=== PATIENT | male | born 1950 | race Caucasian/White ===

== ENCOUNTER 2017-05-26 08:43 | Inpatient (IN) | payer MEDICARE, BC ==
[2017-05-26 09:29] LABS: ABS Basophils 0.1 10^3/ul (0-0.2); ABS Eosinophils 0 10^3/ul (0-0.6); ABS Lymphocytes 0.7 10^3/ul (1.0-4.8); ABS Monocytes 1.1 10^3/ul (0-0.8); ABS Neutrophils 11.2 10^3/ul (1.5-7.7); ABS Nucleated RBC 0 10^3/ul; Eosinophil % 0.4 % (0-6); Hematocrit 35 % (42-52); Hemoglobin 11.4 g/dl (14.0-18.0); Lymphocyte % 5.1 % (25-47); Mean Corpuscular HGB Conc 33 g/dl (31-36); Mean Corpuscular Hemoglobin 28 pg (27-31); Mean Corpuscular Volume 85 fL (80-94); Mean Platelet Volume 7 um3 (7.4-10.4); Nucleated Red Blood Cells % 0; Platelet Count 371 10^3/ul (150-450); Red Cell Distribution Width 18 % (10.5-15); White Blood Count 13.1 10^3/ul (3.5-10.8)
[2017-05-26 09:37] LABS: INR 2.3 (0.77-1.02)
--- NOTE | 2017-05-26 09:37 | RAD ---
HISTORY: Chest pain COMPARISONS: February 14, 2016 VIEWS: 1: frontal portable view of the chest at 9:20 AM FINDINGS: LINES AND TUBES: A right-sided pacemaker is noted. CARDIOMEDIASTINAL SILHOUETTE: The cardiac silhouette is enlarged. The cardiomediastinal silhouette is otherwise normal for portable technique. PLEURA: The costophrenic angles are sharp. No pleural abnormalities are noted. LUNG PARENCHYMA: There is a diffuse reticular pattern with indistinct pulmonary vessels. ABDOMEN: The upper abdomen is clear. There is no subphrenic gas. BONES AND SOFT TISSUES: The patient is status post median sternotomy. IMPRESSION: CARDIOMEGALY WITH PULMONARY INTERSTITIAL EDEMA.
[2017-05-26] MEDS ORDERED: Albuterol 2.5 MG/3 ML NEB.SOL* (0.083%) INH PRN (11:35)
[2017-05-26] MEDS ORDERED: Acetaminophen TAB* 325 MG PO PRN (11:35)
[2017-05-26] MEDS ORDERED: Docusate CAP* 100 MG PO PRN (11:38)
[2017-05-26] MEDS ORDERED: Baclofen TAB* 10 MG PO PRN (11:38)
[2017-05-26 11:58] LABS: Urine Appearance Clear; Urine Blood 1+ (Negative); Urine Color Amber; Urine Ketones Negative (Negative); Urine Protein 1+(30 mg/dL) (Negative); Urine Specific Gravity 1.016 (1.010-1.030); Urine Urobilinogen Positive (Negative)
[2017-05-26] MEDS ORDERED: NS 0.9% 1000 ML* 1,000 ML IV SCH (12:00)
[2017-05-26] MEDS ORDERED: cefTRIAXone(*) 1 GM in NS 0.9% 50 ML* 50 ML IVPB SCH (12:00)
[2017-05-26] MEDS ORDERED: Perflutren Lipid Microsphere* 3 ML VIAL ONE (15:34)
[2017-05-26] MEDS: Azithromycin IV(*) 500 MG in NS 0.9% 250 ML* 250 ML IVPB SCH (16:27)
--- NOTE | 2017-05-26 16:56 | ECHO ---
Patient: VLADIMIR TAYLOR [facility] Rec#: [id number] : 1950 Date: 05/26/2017 Age: 66y Height: 185.42 cm / 73.0 in Weight: 117.93 kg / 259.9 lbs Sex: M BSA: 2.41 Room#: 452 Admit Date#: 05/26/2017 Type: Inpatient Referring: Dorian Nuñez NP Reading: Eun Valente MD [employer] Maker: Kimberly Hardin RDCS CC: Surjit Berg MD Transthoracic Echocardiogram Indication: CHF, Chest pain BP: 114/64 HR: 58 Rhythm: Paced Findings History: CAD, [place] s/p PCI and CABG, ischemic cardiomyopathy, a-fib s/p ablation and AICD, HTN, HLD, smoker. Technical Comments: The study is technically difficult. The study is technically limited due to poor acoustic windows. The study is technically limited due to patient body habitus. Completed at 1630. Left Ventricle: The left ventricular chamber size is normal. Mild concentric left ventricular hypertrophy is observed. There is evidence of an ischemic cardiomyopathy. There is global hypokinesis of the left ventricle with minor regional variation. There is mild to moderately decreased left ventricular systolic function. The estimated ejection fraction is 30-35%. There is abnormal ventricular septal wall motion consistent with right ventricular pacemaker. The assessment of diastolic function is non-diagnostic. Left Atrium: The left atrium is mild to moderately dilated. Right Ventricle: The right ventricle is not well visualized. The right ventricle wall thickness is mildly increased. The right ventricular global systolic function is normal. A pacemaker wire is visualized in the right ventricle. Right Atrium: The right atrial cavity size is severely dilated. A pacemaker wire is visualized in the right atrium. Aortic Valve: The aortic valve is trileaflet. The aortic valve leaflets are mildly thickened. There is no evidence of aortic regurgitation. There is no evidence of aortic stenosis. Mitral Valve: The mitral valve leaflets are mildly thickened. There is mild to moderate mitral regurgitation. The mitral regurgitant jet is eccentric. There is no evidence of mitral stenosis. Tricuspid Valve: The tricuspid valve leaflets are mildly thickened. There is mild to moderate tricuspid regurgitation. The right ventricular systolic pressure is estimated at 57 mmHg. There is evidence of moderate pulmonary hypertension. There is no tricuspid stenosis. Pulmonic Valve: The pulmonic valve structure is not well visualized. There is mild to moderate pulmonic regurgitation. There is no pulmonic stenosis. Pericardium: There is no significant pericardial effusion. A pericardial fat pad is visualized. Aorta: There is mild dilatation of the ascending aorta. There is no dilatation of the aortic arch. There is moderate dilatation of the aortic root. Pulmonary Artery: The main pulmonary artery is not well visualized. Venous: The inferior vena cava is dilated. There is a greater than 50% respiratory change in the inferior vena cava dimension. Contrast: Definity was used to optimize study. 4 mL of diluted Definity was utilized. Intravenous contrast was used to enhance endocardial border definition. Summary: There are changes noted when compared to the previous study done on 11/25/2014, mixed valvular disease are more in severity now.LV EF still moderately reduced. Conclusions The study is technically difficult. The study is technically limited due to poor acoustic windows. Mild concentric left ventricular hypertrophy is observed. There is evidence of an ischemic cardiomyopathy. There is global hypokinesis of the left ventricle with minor regional variation. The estimated ejection fraction is 30-35%. The endocardium is not well visualiuzed. Septal and apical hypokinesis. There is abnormal ventricular septal wall motion consistent with right ventricular pacemaker. The assessment of diastolic function is non-diagnostic. The left atrium is mild to moderately dilated. A pacemaker wire is visualized in the right ventricle. A pacemaker wire is visualized in the right atrium. There is mild- moderate mitral regurgitation. There is mild-moderate tricuspid regurgitation. There is evidence of moderate pulmonary hypertension. Measurements Name Value Normal Range RVIDd (AP) 2D 3.9 cm (0.9 - 2.6) RVAW (2D) 0.9 cm (0.2 - 0.5) RAd ISD 4CH 7.2 cm (3.4 - 4.9) RA (A4C)W 5.1 cm (2.9 - 4.6) IVSd (2D) 1.1 cm (0.6 - 1) LVPWd (2D) 1.1 cm (0.6 - 1) LVIDd (2D) 5.2 cm (3.6 - 5.4) LVIDs (2D) 4.7 cm - LV FS (2D) 10 % (25 - 45) EF Teichholz (2D) 24 % - Aortic Annulus 2.2 cm (1.4 - 2.6) Ao root diameter (2D) 4.3 cm (2.1 - 3.5) Ascending Ao 3.8 cm (2.1 - 3.4) Aortic arch 3.2 cm (1.8 - 3.4) LA dimension (AP) 2D 5 cm (2.3 - 3.8) LAd ISD 4CH 6.4 cm (2.9 - 5.3) LA ISD 4CH W 6.3 cm (2.5 - 4.5) Name Value Normal Range LA ESV SP 4CH (A/L) 130 ml - LA ESV SP 2CH (A/L) 66 ml - LA ESV BP (A/L) 100 ml - LA ESV BP (A/L) index 41 ml/m2 - LA ESV SP 4CH (MOD) 126 ml - LA ESV SP 2CH (MOD) 64 ml - Name Value Normal Range MV E-wave Vmax 1.2 m/sec - MV deceleration time 140.5 msec - MV A-wave Vmax 0.34 m/sec - MV E:A ratio 3.53 ratio - LV septal e' Vmax 0.13 m/sec - LV lateral e' Vmax 0.11 m/sec - LV E:e' septal ratio 9.23 ratio - LV E:e' lateral ratio 10.9 ratio - Name Value Normal Range AV Vmax 1.2 m/sec - AV VTI 23.21 cm - AV peak gradient 5.45 mmHg - AV mean gradient 2.52 mmHg - LVOT Vmax 0.92 m/sec - LVOT VTI 17.68 cm - LVOT peak gradient 3.42 mmHg - LVOT mean gradient 1.39 mmHg - HI Vmax 0.69 m/sec - HI peak gradient 1.93 mmHg - Name Value Normal Range MR Vmax 4.61 m/sec - MR VTI 139 cm - MR flow (PISA) 64.92 ml/sec - MR ERO 0.14 cm2 - MR PISA radius 0.5 cm - MR alias Vmax 42 cm/sec - Name Value Normal Range TR Vmax 3.5 m/sec - TR peak gradient 49 mmHg - RAP 8 mmHg - RVSP 57 mmHg - IVC diameter 2.11 cm - Name Value Normal Range PV Vmax 1.09 m/sec - PV peak gradient 4.75 mmHg - AL end-diastolic Vmax 1.29 m/sec -
--- NOTE | 2017-05-26 17:03 | ED ---
Cuong Eddy Thomas, scribed for Uday Glasgow MD on 05/26/17 at 0941 . HPI Chest Pain - HPI Summary HPI Summary: The patient is a 66 year old male complaining of episodes of chest pain for the last three days. The patient had an episode of chest pain last night, prompting a visit to the emergency department. He does not have chest pain in the ED. The patient treated the pain with NTG yesterday. The patient additionally complains of chills. The patient denies headache, nausea, and dizziness. His last stress test was in 2015. He has a pacemaker defibrillator. - History of Current Complaint Chief Complaint: EDChestPainROMI Time Seen by Provider: 05/26/17 08:59 Hx Obtained From: Patient Onset/Duration: Started Days Ago - 3, Resolved Timing: Intermittent Initial Severity: Moderate Pain Intensity: 0 Pain Scale Used: 0-10 Numeric Character: Other: - patient describes as similar to prior angina Aggravating Factor(s): Nothing Alleviating Factor(s): Spontaneous Resolution Associated Signs and Symptoms: Positive: Chest Pain, Chills. Negative: Other: - ZAMORA, nausea, dizziness - Additional Pertinent History Primary Care Physician: [id number] - Allergy/Home Medications Allergies/Adverse Reactions: Allergies Allergy/AdvReac Type Severity Reaction Status Date / Time No Known Allergies Allergy Verified 11/09/15 01:38 Home Medications: Home Medications Amiodarone TAB* [Cordarone TAB*] 300 mg PO DAILY 05/26/17 [History Confirmed ] Baclofen TAB* [Lioresal TAB*] 10 mg PO TID PRN 05/26/17 [History Confirmed 05/26] Docusate CAP* [Colace Cap*] 100 mg PO DAILY PRN 05/26/17 [History Confirmed ] Esomeprazole(NF) [NEXium(NF)] 20 mg PO DAILY 05/26/17 [History Confirmed ] Ferrous Gluconate TAB* [Fergon TAB*] 27 mg PO DAILY PRN 05/26/17 [History Confirmed 05/26/17] Folic Acid TAB* [Folvite TAB*] 1 mg PO DAILY 05/26/17 [History Confirmed ] Metoprolol Succinate XL TAB* [Toprol XL TAB*] 37.5 mg PO DAILY 05/26/17 [ History Confirmed 05/26/17] Pravastatin (NF) [Pravachol (NF)] 80 mg PO BEDTIME 05/26/17 [History Confirmed 05/26/17] PMH/Surg Hx/FS Hx/Imm Hx Endocrine/Hematology History: Reports: Hx Anticoagulant Therapy - PLAVIX, ASA, xeralto, Hx Thyroid Disease Denies: Hx Blood Disorders, Hx Blood Transfusions, Hx Bone Marrow Disease, Hx Diabetes, Hx Systemic Lupus Erythematosus, Hx Sickle Cell Disease, Hx Anemia , Hx Unexplained Bleeding, Other Endocrine/Hematological Disorders Cardiovascular History: Reports: Hx Aneurysm - popliteal s/p 1992, Hx Angina, Hx Angioplasty, Hx Auto Implanted Cardiovert Defib, Hx Cardiac Arrest, Hx Congestive Heart Failure, Hx Coronary Artery Disease, Hx Hypercholesterolemia, Hx Hypertension, Hx Myocardial Infarction, Hx Pacemaker/ICD - ICD 2007, CURRENTLY ON HIS 4TH PACEMAKER, Hx Rheumatic Fever - as a child, Other Cardiovascular Problems/Disorders - CAD Denies: Hx Cardiomegaly, Hx Congenital Heart Disease, Hx Deep Vein Thrombosis , Hx Hypotension, Hx Peripheral Vascular Disease, Hx Syncope, Hx Valvular Heart Disease Respiratory History: Denies: Hx Asthma, Hx Chronic Obstructive Pulmonary Disease (COPD) Sensory History: Reports: Hx Contacts or Glasses Denies: Hx Cataracts, Hx Eye Injury, Hx Eye Prosthesis, Hx Glaucoma, Hx Macular Degeneration, Hx Vision Problem, Hx Deafness, Hx Hearing Aid, Hx Hearing Problem, Other Sensory Impairments Opthamlomology History: Reports: Hx Contacts or Glasses Denies: Hx Cataracts, Hx Eye Injury, Hx Eye Prosthesis, Hx Glaucoma, Hx Macular Degeneration, Hx Vision Problem, Other Sensory Impairments - Surgical History Surgery Procedure, Year, and Place: s/p hernia repair x2, left knee REPAIR. THYROIDECTOMY. ICD [address] [facility]. CABG X 4 1991 W/STENTS, Hx Anesthesia Reactions: No - Immunization History Date of Tetanus Vaccine: unk Date of Influenza Vaccine: 01/08/15 Infectious Disease History: No Infectious Disease History: Denies: Traveled Outside the [place] in Last 30 Days - Family History Known Family History: Positive: Cardiac Disease, Other - Laryngeal CA Family History: Father of [place] at 52. Mother - laryngeal CA. - Social History Alcohol Use: None Alcohol Amount: WEEKENDS Hx Substance Use: No Substance Use Type: Reports: None Hx Tobacco Use: Yes Smoking Status (MU): Heavy Every Day Tobacco Smoker Type: Pipe Amount Used/How Often: about 3/16 ounce of pipe tabacco a day,tabacco pouch last about 5days Length of Time of Smoking/Using Tobacco: since 1966 Have You Smoked in the Last Year: Yes Review of Systems Positive: Chills. Negative: Fever Positive: Chest Pain Negative: Nausea Neurological: Negative - dizziness Negative: Headache All Other Systems Reviewed And Are Negative: Yes Physical Exam - Summary Physical Exam Summary: VITAL SIGNS: Reviewed. GENERAL: Patient is a well-developed and nourished male is lying comfortable in the stretcher. Patient is not in any acute respiratory distress. HEAD AND FACE: No signs of trauma. No ecchymosis, hematomas or skull depressions. No sinus tenderness. EYES: PERRLA, EOMI x 2, No injected conjunctiva, no nystagmus. EARS: Hearing grossly intact. Ear canals and tympanic membranes are within normal limits. MOUTH: Oropharynx within normal limits. Dry oral mucosa. NECK: Supple, trachea is midline, no adenopathy, no JVD, no carotid bruit, no c- spine tenderness, neck with full ROM. CHEST: Symmetric, no tenderness at palpation LUNGS: Clear to auscultation bilaterally. No wheezing or crackles. CVS: Regular rate and rhythm, S1 and S2 present, no murmurs or gallops appreciated. ABDOMEN: Soft, non-tender. No signs of distention. No rebound no guarding, and no masses palpated. Bowel sounds are normal. EXTREMITIES: FROM in all major joints, no edema, no cyanosis or clubbing. NEURO: Alert and oriented x 3. No acute neurological deficits. Speech is normal and follows commands. SKIN: Dry and warm Triage Information Reviewed: Yes Vital Signs On Initial Exam: Initial Vitals Temp Pulse Resp BP Pulse Ox 97.7 F 78 20 111/55 90 05/26/17 08:45 05/26/17 08:45 05/26/17 08:45 05/26/17 08:45 05/26/17 08:45 Vital Signs Reviewed: Yes Diagnostics - Vital Signs Vital Signs Temp Pulse Resp BP Pulse Ox 05/26/17 08:45 97.7 F 78 20 111/55 90 - Laboratory Lab Results: Lab Results 05/26/17 05/26/17 Range/Units 09:19 09:19 WBC 13.1 H (3.5-10.8) 10^3/ul RBC 4.10 (4.0-5.4) 10^6/ul Hgb 11.4 L (14.0-18.0) g/dl Hct 35 L (42-52) % MCV 85 (80-94) fL MCH 28 (27-31) pg MCHC 33 (31-36) g/dl RDW 18 H (10.5-15) % Plt Count 371 (150-450) 10^3/ul MPV 7 L (7.4-10.4) um3 Neut % (Auto) 85.9 H (38-83) % Lymph % (Auto) 5.1 L (25-47) % [place] % (Auto) 8.2 (1-9) % Eos % (Auto) 0.4 (0-6) % Baso % (Auto) 0.4 (0-2) % Absolute Neuts (auto) 11.2 H (1.5-7.7) 10^3/ul Absolute Lymphs (auto) 0.7 L (1.0-4.8) 10^3/ul Absolute Monos (auto) 1.1 H (0-0.8) 10^3/ul Absolute Eos (auto) 0 (0-0.6) 10^3/ul Absolute Basos (auto) 0.1 (0-0.2) 10^3/ul Absolute Nucleated RBC 0 10^3/ul Nucleated RBC % 0 INR (Anticoag Therapy) 2.30 H (0.77-1.02) APTT 34.9 (26.0-36.3) seconds Result Diagrams: 05/26/17 09:19 05/26/17 09:19 Lab Statement: Any lab studies that have been ordered have been reviewed, and results considered in the medical decision making process. - Radiology CXR Xray Interpretation: No Acute Changes - CARDIOMEGALY WITH INTERSTITIAL PULMONARY EDEMA. Dr. Glasgow has reviewed this report. Radiology Interpretation Completed By: Radiologist - EKG 08:53 Cardiac Rate: NL EKG Rhythm: Sinus Rhythm EKG Interpretation: No ST elevations. Chest Pain Course/Dx - Course Assessment/Plan: The patient is a 66 year old male complaining of episodes of chest pain for the last three days. The patient had an episode of chest pain last night, prompting a visit to the emergency department. He does not have chest pain in the ED. The patient treated the pain with NTG yesterday. The patient additionally complains of chills. The patient denies headache, nausea, and dizziness. His last stress test was in 2015. He has a pacemaker defibrillator. Test results show WBC 13.1, a slight anemia, troponin 0.05. Urinalysis is negative for UTI. Influenza A and B were negative. Since the patient has multiple comorbidities and the patient has been having multiple episodes of angina, I discussed the case with Dr. Brown, who accepts the patient for admission. The patient is hemodynamically stable and alert and oriented x 3. - Diagnoses Provider Diagnoses: Chest pain r/o acute coronary syndrome - Provider Notifications Discussed Care Of Patient With: Ewa Brown Time Discussed With Above Provider: 10:33 Instructed by Provider To: Admit As Inpatient Discharge - Discharge Plan Condition: Stable Disposition: ADMITTED TO [facility] The documentation as recorded by the Cuong tavera Thomas accurately reflects the service I personally performed and the decisions made by , Uday Glasgow MD.
[2017-05-26] MEDS: Famotidine TAB* 20 MG PO SCH (20:30)
[2017-05-26] MEDS: Metoprolol Tartrate TAB* 25 MG PO SCH (20:31)
[2017-05-26] MEDS: CMC:Pravastatin (NF) 20 MG TAB PO SCH (20:31)
--- NOTE | 2017-05-26 21:01 | HP ---
CC: Dr. Berg; Dr. Gamboa * HISTORY AND PHYSICAL: DATE OF ADMISSION: 05/26/17 PRIMARY CARE PROVIDER: Dr. Berg. ATTENDING PHYSICIAN WHILE IN THE HOSPITAL: Speedy Fleming MD * (report dictated by Clara Nuñez NP) CHIEF COMPLAINT: 1. Cough. 2. Weakness. 3. Chest pain. HISTORY OF PRESENT ILLNESS: Mr. Armstrong is a 66-year-old male patient. He has a history of KS, CAD, hypertension, hyperlipidemia, history of CHF, and history of hypothyroidism. He comes into the ED today stating initially last Monday he started having pain mostly on his left side, left flank radiating into the center of his back. That was getting progressively worse throughout the week. He went to his primary on Monday. He felt that it was maybe related to chronic back pain. He was given medications, which the pain went away. However , since then, on Monday, he started feeling having chills and weak. He had been coughing. He states he has no, in his words, get up and go. He just feels really tired. He has had no appetite. He has not been feeling well. He has been having dry cough. He noticed on Monday, he he had one episode of chest discomfort when he was at the [employer] getting a cup of coffee. He took a nitro, it went away. He had an episode yesterday evening where he had chest discomfort on his right side described as a squeezing tightness which is typical of his angina. He waited and it went away on its own. He had no associated shortness of breath this morning. At 3 in the morning, he woke up again, chest discomfort, right side pressure, squeezing. He felt really flushed and felt hot, got sweaty. No shortness of breath associated with this, but in addition to this he has also been feeling very weak, having chills, unable to get warm. He has been coughing. He states now he is just a kind of aching all over and he just does not feel good. There has been no nausea, vomiting. No more abdominal pain or back pain. No chest pain with exertion. He states all these episodes has happened at rest. He was concerned given his history and he decided to come into the hospital today to be evaluated. Denies having any symptoms right now with the exception he just feels weak and tired. The patient was evaluated in the ED. There was concern that this could represent acute coronary syndrome and we were asked to evaluate for admission. PAST MEDICAL HISTORY: Significant for; 1. KS. 2. CAD. 3. Hypertension. 4. Hypothyroidism. 5. Hyperlipidemia. 6. CHF, EF of 30%. PAST SURGICAL HISTORY: 1. He has had CABG. 2. He has had bilateral popliteal aneurysm repair. 3. He has had a pacemaker ICD placement and it has been replaced 4 times due to fractured wire and infection. 4. He has a history of thyroidectomy. 5. Cardiac catheterization with stents. 6. Angioplasty. 7. He has a history of recently an ablation in March at [facility] for Afib. 8. He has a history of hernia repair. HOME MEDICATIONS: Include; 1. Ferrous gluconate 27 mg p.o. daily as needed. 2. Colace 100 mg daily as needed. 3. Baclofen 10 mg t.i.d. as needed. 4. Norvasc 5 mg p.o. daily. 5. Pravachol 80 mg p.o. daily. 6. Nexium 20 mg daily. 7. Xarelto 20 mg daily. 8. Lasix 20 mg daily. 9. Plavix 75 mg daily. 10. Aspirin 81 mg daily. 11. Losartan 160 mg p.o. daily. 12. Toprol XL 37.5 mg daily. 13. Amiodarone 300 mg p.o. daily. 14. Zantac 1 tablet p.o. daily. 15. Synthroid 200 mcg daily. 16. Folic acid 1 mg p.o. daily. ALLERGIES TO MEDICATIONS: Include no known drug allergies. FAMILY HISTORY: His mother had a history of laryngeal cancer. Father had a history of KS. SOCIAL HISTORY: He is still smoking a pipe occasionally. He is a former cigarette smoker. He does not drink alcohol. Surrogate decision maker is his . REVIEW OF SYSTEMS: There is no documented fever, but subjectively he is admitting to having fevers and chills. He denies having any abdominal pain or any nausea or vomiting. Denies having any chest pain currently, there was some per my HPI. There is no orthopnea. No nocturnal dyspnea. Denies having any leg swelling or weight gain. He denies any abdominal pain currently. He did have left flank pain, which is now resolved. He denies any dysuria. No frequency. There has been no seizure. No loss of consciousness. No pruritus and no skin ulcerations. Review of 14 systems completed, all others negative. PHYSICAL EXAMINATION GENERAL: At this time, Mr. Armstrong is a 66-year-old male patient. He is chronically ill appearing. He is sitting in ED stretcher. He does not appear to be in any acute distress. VITAL SIGNS: Blood pressure 114/64, pulse 60, respirations 22, O2 sat 94%, and temperature 96.7. HEENT: Head is atraumatic. Eyes: Sclerae are anicteric. Throat: Oral mucosa appears to be dry. No oropharyngeal erythema. NECK: Supple. LUNGS: He had diminished breath sounds bilaterally. There was no wheezing heard. HEART: Sounds S1 and S2. Regular rate and rhythm. No murmurs, rubs, or gallops. ABDOMEN: Soft, flat, and nontender. Bowel sounds present. EXTREMITIES: Pulses were 2+ throughout. He had no CVA tenderness. He has no peripheral edema. He has 5/5 strength. NEUROLOGIC: He is awake, alert, oriented x3. Tongue midline. Wellness Assistant were equal. He had no gross focal deficits. SKIN: Intact. LABORATORY DATA/DIAGNOSTIC STUDIES: WBC of 13.1, RBC of 4.10, hemoglobin 11.4 , hematocrit 35, and platelet count of 371,000. His INR is 2.3, PTT of 34.9. His sodium is 133, potassium 3.6, chloride of 103, bicarbonate 21. His BUN was 23, creatinine 1.17. Glucose 130, calcium 9.4, magnesium 1.9, total bilirubin 1.9, AST 27, ALT 15, alkaline phosphatase 170. CK 35, CK-MB 1.4. Troponin 0.05. Albumin was 3.6. BNP was 376. He did have a chest x-ray obtained today. Impression: Cardiomegaly with pulmonary interstitial edema. He had EKG obtained today and shows sinus rhythm, rate of 77. No ST elevations. No significant changes from his previous EKG. No T-wave inversions were noted. Old medical records were reviewed. Last known EF was about 30%. ASSESSMENT AND PLAN: Mr. Armstrong is a 66-year-old male patient coming into the ED today with multiple complaints with just concern for the chest pain that he was having intermittently in the last few days. In addition to this, he has also been complaining of weakness, arthralgias and myalgias, cough. We were asked to evaluate for admission. He will be admitted under observation status for: 1. Chest pain. At this point, I suspect the chest pain is probably some demand ischemia from him having an underlying a viral illness. He certainly does have risk factors for acute coronary artery syndrome. He is on Plavix. He is on an aspirin. He is on statin and beta-rizwana therapy already. I will continue. He is not having any chest pain now. I am going to get an echo, cycle his troponins. If the troponins go up or there is significant change on the echo, formal cardiology consult will be evaluated. 2. Leukocytosis. Again, I am concerned that there is an underlying infection going on here, possibly pneumonia, possibly influenza. He has been complaining of a dry cough. He has been aching all over. He has been having chills intermittently. He is feeling weak. I am going to put him empirically on antibiotics. We will get blood culture, sputum culture, Legionella strep antigen. In addition to this, we will also get rapid flu swab on the patient and I am checking procalcitonin and we will follow him closely. 3. Coronary artery disease. Again, trend the troponins. He is on aspirin, Plavix, statin, beta-rizwana. 4. Atrial fibrillation, recent ablation. Continue his amiodarone and beta- rizwana, which I have switched to immediate release with hold parameters in the setting of acute illness and we will continue his Xarelto. 5. History of congestive heart failure. He does have some fluids on x-ray, but clinically looking at the patient, he looks dry, his mucous membranes are dry, his urine appears to be concentrated. I am going to give him a little bit of fluids. We will diurese him as needed because I am concerned that he has an underlying infection. 6. Hypertension. We are just going to continue the beta-rizwana. We will hold his other blood pressure meds and restart when able. 7. Hypothyroidism. Continue his Synthroid. 8. Hyperlipidemia. Statin therapy will be continued. 9. Back pain. Again, I am checking his urine. If there is any blood in the urine, I will get a CT of the abdomen and pelvis because it did sound like it was in the flank. He is not having any pain now and he is not having any CVA tenderness, so we will follow this. 10. DVT prophylaxis. He is on Xarelto. 11. Code status. He wished to be a DNR. 12. Fluids, electrolytes, and nutrition. He can have a heart healthy diet. TIME SPENT: Time spent on admission was 60 minutes, greater than half the time was spent [id number] with the patient obtaining my history of physical; the other half time was spent going over the plan of care with the patient and implementing plan of care. I did discuss the plan of care with my attending, Dr. Fleming, he is in agreement. CLARA NUÑEZ NP [id number]/CPS #: [id number] MTDD
[2017-05-27] MEDS ORDERED: Nitroglycerin TAB 0.4 MG* 0.4 MG TAB SL PRN (06:12)
[2017-05-27 07:11] LABS: EGFR Non-African American 66.6 (>60)
[2017-05-27 07:12] LABS: INR 1.4 (0.77-1.02)
[2017-05-27] MEDS ORDERED: Famotidine TAB* 20 MG PO SCH (09:00)
[2017-05-27] MEDS ORDERED: Al Hydrox/Mg Hydrox/Simet LIQ* 30 ML UDC PO PRN (09:36)
[2017-05-27] MEDS ORDERED: Calcium Carbonate CHEW TAB* 500 MG (TUMS) PO PRN (09:36)
[2017-05-27] MEDS: Levothyroxine TAB* 100 MCG TAB PO SCH (09:44)
[2017-05-27] MEDS: Metoprolol Tartrate TAB* 25 MG PO SCH ×2 (09:44→21:21)
[2017-05-27] MEDS: Rivaroxaban TAB(*) 20 MG TAB PO SCH (09:44)
[2017-05-27] MEDS: CMC:Pantoprazole TAB (NF) 40 MG TAB PO SCH (09:44)
[2017-05-27] MEDS: Folic Acid TAB* 1 MG PO SCH (09:45)
[2017-05-27] MEDS: Famotidine TAB* 20 MG PO SCH (09:45)
[2017-05-27] MEDS: Clopidogrel TAB* 75 MG PO SCH (09:45)
[2017-05-27] MEDS: Aspirin EC Low Dose* 81 MG TAB.EC PO SCH (09:45)
[2017-05-27] MEDS: Amiodarone TAB* 200 MG PO SCH (09:45)
[2017-05-27] MEDS: Azithromycin IV(*) 500 MG in NS 0.9% 250 ML* 250 ML IVPB SCH (12:40)
[2017-05-27] MEDS: cefTRIAXone(*) 1 GM in D5W 50 ML BAG* 50 ML IVPB SCH (14:20)
--- NOTE | 2017-05-27 17:24 | PN ---
Subjective Date of Service: 05/27/17 Interval History: Pt is feeling lousy. He has a frequent cough but is not able to bring up much sputum. He still feels SOB with minimal exertion. The patient's daughter noticed today that he appears jaundiced. Objective Active Medications: Acetaminophen (Tylenol Tab*) 650 mg PO Q4H PRN PRN Reason: FEVER/PAIN Al Hydrox/Mg Hydrox/Simethicone (Maalox Plus*) 30 ml PO Q4H PRN PRN Reason: INDIGESTION Albuterol (Ventolin 2.5 Mg/3 Ml Neb.Noreen*) 2.5 mg INH Q2H PRN PRN Reason: SOB/WHEEZING Amiodarone HCl (Cordarone Tab*) 300 mg PO DAILY [facility] Last Admin: 05/27/17 09:45 Dose: 300 mg Aspirin (Aspirin Ec Low Dose*) 81 mg PO DAILY [facility] Last Admin: 05/27/17 09:45 Dose: 81 mg Baclofen (Lioresal Tab*) 10 mg PO TID PRN PRN Reason: PAIN - BACK Calcium Carbonate (Tums*) 500 mg PO Q4H PRN PRN Reason: INDIGESTION Clopidogrel Bisulfate (Plavix Tab*) 75 mg PO DAILY [facility] Last Admin: 05/27/17 09:45 Dose: 75 mg Docusate Sodium (Colace Cap*) 100 mg PO DAILY PRN PRN Reason: CONSTIPATION Famotidine (Pepcid Tab*) 20 mg PO DAILY [facility] PRN Reason: Protocol Last Admin: 05/27/17 09:45 Dose: 20 mg Folic Acid (Folvite Tab*) 1 mg PO DAILY [facility] Last Admin: 05/27/17 09:45 Dose: 1 mg Azithromycin 500 mg/ Sodium (Chloride) 250 mls @ 250 mls/hr IVPB Q24H [facility] Last Admin: 05/27/17 12:40 Dose: 250 mls/hr Ceftriaxone Sodium 1 gm/ (Dextrose) 50 mls @ 200 mls/hr IVPB Q24H [facility] Last Admin: 05/27/17 14:20 Dose: 200 mls/hr Levothyroxine Sodium (Synthroid Tab*) 200 mcg PO DAILY [facility] Last Admin: 05/27/17 09:44 Dose: 200 mcg Metoprolol Tartrate (Lopressor Tab*) 25 mg PO BID [facility] Last Admin: 05/27/17 09:44 Dose: 25 mg Nitroglycerin (Nitroglycerin Tab 0.4 Mg*) 0.4 mg SL Q5M PRN PRN Reason: ANGINA Pantoprazole Sodium (Protonix Tab (Nf)) 40 mg PO DAILY [facility] PRN Reason: Protocol Last Admin: 05/27/17 09:44 Dose: 40 mg Pravastatin Sodium (Pravachol (Nf)) 80 mg PO BEDTIME [facility] PRN Reason: Protocol Last Admin: 05/26/17 20:31 Dose: 80 mg Rivaroxaban (Xarelto(*)) 20 mg PO DAILY [facility] Last Admin: 05/27/17 09:44 Dose: 20 mg Oxygen Devices in Use Now: Nasal Cannula Appearance: Middle aged male sitting in a chair, appears jaundiced, NAD Eyes: No Scleral Icterus Ears/Nose/Mouth/Throat: Mucous Membranes Moist Respiratory: Symmetrical Chest Expansion and Respiratory Effort, Clear to Auscultation - few RLL crackles Cardiovascular: NL Sounds; No Murmurs; No JVD, - - distant heart sounds, regular , trace LE edema B/L Abdominal: NL Sounds; No Tenderness; No Distention Extremities: No Clubbing, Cyanosis Skin: No Rash or Ulcers, No Nodules or Sclerosis, - - jaundiced appearing face/ upper chest Neurological: Alert and Oriented x 3 Result Diagrams: 05/26/17 09:19 05/27/17 06:37 Additional Lab and Data: Lab Results 05/26/17 05/26/17 Range/Units 09:19 09:19 WBC 13.1 H (3.5-10.8) 10^3/ul RBC 4.10 (4.0-5.4) 10^6/ul Hgb 11.4 L (14.0-18.0) g/dl Hct 35 L (42-52) % MCV 85 (80-94) fL MCH 28 (27-31) pg MCHC 33 (31-36) g/dl RDW 18 H (10.5-15) % Plt Count 371 (150-450) 10^3/ul MPV 7 L (7.4-10.4) um3 Neut % (Auto) 85.9 H (38-83) % Lymph % (Auto) 5.1 L (25-47) % Bonner % (Auto) 8.2 (1-9) % Eos % (Auto) 0.4 (0-6) % Baso % (Auto) 0.4 (0-2) % Absolute Neuts (auto) 11.2 H (1.5-7.7) 10^3/ul Absolute Lymphs (auto) 0.7 L (1.0-4.8) 10^3/ul Absolute Monos (auto) 1.1 H (0-0.8) 10^3/ul Absolute Eos (auto) 0 (0-0.6) 10^3/ul Absolute Basos (auto) 0.1 (0-0.2) 10^3/ul Absolute Nucleated RBC 0 10^3/ul Nucleated RBC % 0 INR (Anticoag Therapy) 2.30 H (0.77-1.02) APTT 34.9 (26.0-36.3) seconds Microbiology and Other Data: Microbiology 05/26/17 16:44 Aerobic Blood Culture - Preliminary Blood Venous No Growth Day 1 Anaerobic Blood Culture - Preliminary No Growth Day 1 05/26/17 13:07 Aerobic Blood Culture - Preliminary Blood Venous Anaerobic Blood Culture - Preliminary No Growth Day 1 05/26/17 16:24 Legionella Urinary Antigen - Final Urine Negative Legionella Streptococcus pneumoniae Ag Screen - Final Negative S. 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 - Patient Problems (1) Bacteremia Current Visit: Yes Status: Acute Code(s): R78.81 - BACTEREMIA SNOMED Code( s): 1459284 Comment: The patient has 1 of 2 bottles positive for gram positive cocci resembling strep. Will continue ceftriaxone and azithromycin for now. Repeat blood cultures tomorrow. I am concerned about the bacteremia given his pacer and past h/o device associated endocarditis. Will get ID consult. (2) Jaundice Current Visit: Yes Status: Acute Code(s): R17 - UNSPECIFIED JAUNDICE SNOMED Code(s): 16201535 Comment: The patient's bilirubin yesterday was elevated at 1.9, his alk phos was also elevated. This is new. Will repeat labs now. Check liver ultrasound. Check indirect/direct bilirubin. (3) Chest pain Current Visit: Yes Status: Acute Code(s): R07.9 - CHEST PAIN, UNSPECIFIED SNOMED Code(s): 89128192 Comment: The patient has been having chest discomfort for the last couple weeks. Troponin is mildly elevated but did not climb. ? demand ischemia secondary to infection. No further cardiac testing at this time. (4) CAD (coronary artery disease) Current Visit: Yes Status: Acute Code(s): I25.10 - ATHSCL HEART DISEASE OF [place] CORONARY ARTERY W/O ANG PCTRS SNOMED Code(s): 45731382 Comment: Troponin is stable. Continue ASA, plavix, pravachol. Hold off on further cardiac testing for now. (5) Atrial fibrillation Current Visit: Yes Status: Chronic Code(s): I48.91 - UNSPECIFIED ATRIAL FIBRILLATION SNOMED Code(s): 99929777 Comment: The patient is currently in SR/paced rhythm. Continue metoprolol and amiodarone. Continue rivaroxaban. (6) CHF (congestive heart failure) Current Visit: Yes Status: Chronic Code(s): I50.9 - HEART FAILURE, UNSPECIFIED SNOMED Code(s): 21144340 Comment: Pt with chronic systolic CHF. He appears euvolemic. Will continue to hold lasix for now but will likely need to add this back soon. (7) HTN (hypertension) Current Visit: Yes Status: Acute Code(s): I10 - ESSENTIAL (PRIMARY) HYPERTENSION SNOMED Code(s): 95291367 Comment: BP is under excellent control. Continue metoprolol. (8) Hypothyroidism Current Visit: Yes Status: Acute Code(s): E03.9 - HYPOTHYROIDISM, UNSPECIFIED SNOMED Code(s): 10814338 Comment: Continue current dose of synthroid. TSH is in normal range. (9) DVT prophylaxis Current Visit: Yes Status: Acute Code(s): QYI6538 - SNOMED Code(s): 967022951 Comment: Kevin (10) DNR (do not resuscitate) Current Visit: Yes Status: Acute
[2017-05-27] MEDS ORDERED: LORazepam TAB(*) 0.5 MG PO PRN (17:30)
--- NOTE | 2017-05-27 17:58 | RAD ---
HISTORY: Cardiac issue, evaluate for infiltrates. No other history is provided. COMPARISONS: December 02, 2013, chest x-ray dated January 23, 2018 TECHNIQUE: Multiple contiguous axial CT scans of the chest were obtained without intravenous contrast. Coronal and sagittal multiplanar reformations are also submitted for review. FINDINGS: The study is limited by the lack of intravenous contrast. This limits evaluation of the solid organs and vasculature. NECK AND THYROID: The lower neck and thyroid are unremarkable. CHEST WALL: There is no lower cervical, axillary, or supraclavicular lymphadenopathy by size criteria. A right-sided pacemaker is noted. HEART AND PERICARDIUM: Coronary and valvular cardiac calcifications are noted. There is right atrial enlargement. There is mild left atrial and left ventricular enlargement. AORTA AND PULMONARY VASCULATURE: There is calcification of the thoracic aorta. The pulmonary vasculature is unremarkable. MEDIASTINUM: There is no mediastinal lymphadenopathy by size criteria. MORIS: There is no hilar lymphadenopathy by size criteria. AIRWAY AND ESOPHAGUS: The airway is unremarkable, without endobronchial filling defect. The esophagus is grossly normal. LUNG PARENCHYMA: There is geographic ground glass opacification of the lungs diffusely bilaterally. There is a noncalcified nodule of the right lower lobe on axial image 44. This is stable from the 2014 examination. The stability is consistent with a benign nodule. PLEURA: No pleural abnormalities are noted. UPPER ABDOMEN: The upper abdomen is unremarkable. BONES AND SOFT TISSUES: The patient is status post median sternotomy. Degenerative changes are noted of the spine. OTHER: None. IMPRESSION: GEOGRAPHIC MULTIFOCAL AIRSPACE DISEASE THROUGHOUT BOTH LUNGS. THE DIFFERENTIAL INCLUDES INFECTION OR PULMONARY ALVEOLAR EDEMA.
--- NOTE | 2017-05-27 18:37 | RAD ---
HISTORY: Elevated bilirubin COMPARISONS: CT of the chest dated May 27, 2017 TECHNIQUE: Multiple transverse and longitudinal ultrasound images were obtained of the right upper quadrant of the abdomen using grayscale and color Doppler imaging. FINDINGS: LIVER: The liver is normal in shape, size, contour, and echogenicity. There are no focal parenchymal masses. There is normal hepatopedal flow of the portal vein on Doppler imaging. BILIARY TREE: There is no intrahepatic or extrahepatic biliary dilatation. The common duct measures 0.5 cm. GALLBLADDER: The gallbladder is incompletely distended, but is grossly normal. There is no pericholecystic fluid or sonographic Hayes sign. PANCREAS: The head of the pancreas is unremarkable. The tail of the pancreas is not well visualized secondary to overlying bowel gas. RIGHT KIDNEY: The right kidney is normal in shape, size, contour, and echogenicity. There is no hydronephrosis or nephrolithiasis. The right kidney measures 13.7 x 6.5 x 6.8 cm. AORTA AND IVC: The aorta and IVC are unremarkable. FLUID: There are no pleural effusions. There is no free fluid within the hepatorenal recess. OTHER FINDINGS: None. IMPRESSION: NO ACUTE SONOGRAPHIC PATHOLOGY OF THE VISUALIZED PORTION OF THE ABDOMEN.
[2017-05-27 18:47] LABS: EGFR Non-African American 56.9 (>60)
[2017-05-27] MEDS: CMC:Pravastatin (NF) 20 MG TAB PO SCH (21:21)
[2017-05-28 05:46] LABS: Hematocrit 32 % (42-52); Hemoglobin 10.6 g/dl (14.0-18.0); Mean Corpuscular HGB Conc 33 g/dl (31-36); Mean Corpuscular Hemoglobin 28 pg (27-31); Mean Corpuscular Volume 84 fL (80-94); Mean Platelet Volume 7 um3 (7.4-10.4); Platelet Count 401 10^3/ul (150-450); Red Blood Count 3.77 10^6/ul (4.0-5.4); Red Cell Distribution Width 18 % (10.5-15); White Blood Count 10.6 10^3/ul (3.5-10.8)
[2017-05-28] MEDS: Famotidine TAB* 20 MG PO SCH (09:44)
[2017-05-28] MEDS: Metoprolol Tartrate TAB* 25 MG PO SCH ×2 (09:44→21:07)
[2017-05-28] MEDS: Clopidogrel TAB* 75 MG PO SCH (09:44)
[2017-05-28] MEDS: Amiodarone TAB* 200 MG PO SCH (09:45)
[2017-05-28] MEDS: CMC:Pantoprazole TAB (NF) 40 MG TAB PO SCH (09:45)
[2017-05-28] MEDS: Aspirin EC Low Dose* 81 MG TAB.EC PO SCH (09:45)
[2017-05-28] MEDS: Rivaroxaban TAB(*) 20 MG TAB PO SCH (09:45)
[2017-05-28] MEDS: Levothyroxine TAB* 100 MCG TAB PO SCH (09:45)
[2017-05-28] MEDS: Folic Acid TAB* 1 MG PO SCH (09:45)
[2017-05-28] MEDS: cefTRIAXone(*) 1 GM in D5W 50 ML BAG* 50 ML IVPB SCH (12:00)
[2017-05-28] MEDS: Azithromycin IV(*) 500 MG in NS 0.9% 250 ML* 250 ML IVPB SCH (12:35)
[2017-05-28] MEDS ORDERED: Furosemide IV* 10 MG/ML 2 ML VIAL (20 MG) IV SLOW PU ONE (17:15)
--- NOTE | 2017-05-28 17:15 | PN ---
Subjective Date of Service: 05/28/17 Interval History: Patient complains of persistent SOB. Patient complained of an episode of CP when he removed his O2 yesterday that resolved when he replaced it. Patient denies F/C, N/V, abdominal pain, diarrhea, constipation, ZAMORA or other pain. Patient able to ambulate in the hallways. Patient complains of frequent urination without dysuria or changes in urine color. Family History: Unchanged from Admission Social History: Unchanged from Admission Past Medical History: Unchanged from Admission Objective Active Medications: Acetaminophen (Tylenol Tab*) 650 mg PO Q4H PRN PRN Reason: FEVER/PAIN Al Hydrox/Mg Hydrox/Simethicone (Maalox Plus*) 30 ml PO Q4H PRN PRN Reason: INDIGESTION Albuterol (Ventolin 2.5 Mg/3 Ml Neb.Noreen*) 2.5 mg INH Q2H PRN PRN Reason: SOB/WHEEZING Amiodarone HCl (Cordarone Tab*) 300 mg PO DAILY [facility] Last Admin: 05/28/17 09:45 Dose: 300 mg Aspirin (Aspirin Ec Low Dose*) 81 mg PO DAILY [facility] Last Admin: 05/28/17 09:45 Dose: 81 mg Baclofen (Lioresal Tab*) 10 mg PO TID PRN PRN Reason: PAIN - BACK Calcium Carbonate (Tums*) 500 mg PO Q4H PRN PRN Reason: INDIGESTION Clopidogrel Bisulfate (Plavix Tab*) 75 mg PO DAILY [facility] Last Admin: 05/28/17 09:44 Dose: 75 mg Docusate Sodium (Colace Cap*) 100 mg PO DAILY PRN PRN Reason: CONSTIPATION Famotidine (Pepcid Tab*) 20 mg PO DAILY [facility] PRN Reason: Protocol Last Admin: 05/28/17 09:44 Dose: 20 mg Folic Acid (Folvite Tab*) 1 mg PO DAILY [facility] Last Admin: 05/28/17 09:45 Dose: 1 mg Azithromycin 500 mg/ Sodium (Chloride) 250 mls @ 250 mls/hr IVPB Q24H [facility] Last Admin: 05/28/17 12:35 Dose: 250 mls/hr Ceftriaxone Sodium 1 gm/ (Dextrose) 50 mls @ 200 mls/hr IVPB Q24H [facility] Last Admin: 05/28/17 12:00 Dose: 200 mls/hr Levothyroxine Sodium (Synthroid Tab*) 200 mcg PO DAILY [facility] Last Admin: 05/28/17 09:45 Dose: 200 mcg Lorazepam (Ativan Tab(*)) 0.5 mg PO Q6H PRN PRN Reason: ANXIETY Metoprolol Tartrate (Lopressor Tab*) 25 mg PO BID [facility] Last Admin: 05/28/17 09:44 Dose: 25 mg Nitroglycerin (Nitroglycerin Tab 0.4 Mg*) 0.4 mg SL Q5M PRN PRN Reason: ANGINA Pantoprazole Sodium (Protonix Tab (Nf)) 40 mg PO DAILY [facility] PRN Reason: Protocol Last Admin: 05/28/17 09:45 Dose: 40 mg Pravastatin Sodium (Pravachol (Nf)) 80 mg PO BEDTIME [facility] PRN Reason: Protocol Last Admin: 05/27/17 21:21 Dose: 80 mg Rivaroxaban (Xarelto(*)) 20 mg PO DAILY [facility] Last Admin: 05/28/17 09:45 Dose: 20 mg Vital Signs - 8 hr 05/28/17 15:42 Temperature 97.6 F Pulse Rate 57 Respiratory 24 Rate Blood Pressure 100/47 (mmHg) O2 Sat by Pulse 98 Oximetry Oxygen Devices in Use Now: Nasal Cannula - 3L Appearance: Patient is a 66yo male who appears stated age and is sitting in the bed in [facility]. Eyes: No Scleral Icterus, PERRLA Ears/Nose/Mouth/Throat: NL Teeth, Lips, Gums, Clear Oropharnyx, Mucous Membranes Moist Neck: NL Appearance and Movements; NL JVP, Trachea Midline Respiratory: Symmetrical Chest Expansion and Respiratory Effort, Clear to Auscultation Cardiovascular: NL Sounds; No Murmurs; No JVD, RRR, No Edema Abdominal: NL Sounds; No Tenderness; No Distention, No Hepatosplenomegaly Lymphatic: No Cervical Adenopathy Extremities: No Clubbing, Cyanosis, - - 1+ edema in B/L LE. Skin: No Rash or Ulcers, No Nodules or Sclerosis Neurological: Alert and Oriented x 3, NL Sensation, NL Muscle Strength and Tone , - - CN II-XII intact. Result Diagrams: 05/28/17 05:25 05/27/17 18:21 Additional Lab and Data: Lab Results Microbiology and Other Data: Microbiology 05/26/17 16:44 Aerobic Blood Culture - Preliminary Blood Venous No Growth Day 1 Anaerobic Blood Culture - Preliminary No Growth Day 1 05/26/17 13:07 Aerobic Blood Culture - Preliminary Blood Venous Anaerobic Blood Culture - Preliminary No Growth Day 1 05/26/17 16:24 Legionella Urinary Antigen - Final Urine Negative Legionella Streptococcus pneumoniae Ag Screen - Final Negative S. 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 Patient is on 3L O2. - Patient Problems (1) Bacteremia Current Visit: Yes Status: Acute Code(s): R78.81 - BACTEREMIA SNOMED Code( s): 2314728 Comment: The patient has 1 of 2 bottles positive for gram positive cocci resembling strep. Will continue ceftriaxone and azithromycin for now. Repeat blood cultures tomorrow. I am concerned about the bacteremia given his pacer and past h/o device associated endocarditis. ID consult pending tomorrow. No growth in other bottles. Possible contaminant. (2) CAD (coronary artery disease) Current Visit: Yes Status: Acute Code(s): I25.10 - ATHSCL HEART DISEASE OF [place] CORONARY ARTERY W/O ANG PCTRS SNOMED Code(s): 83126349 Comment: Troponin is stable. Continue ASA, plavix, pravachol. Hold off on further cardiac testing for now. Likely demand ischemia. Had episode of chest pain yesterday when O2 taken off which resolved with its replacement. (3) HTN (hypertension) Current Visit: Yes Status: Acute Code(s): I10 - ESSENTIAL (PRIMARY) HYPERTENSION SNOMED Code(s): 67481155 Comment: Monitor Closely due to lasix administration. Metoprolol with hold parameters. (4) Chest pain Current Visit: Yes Status: Acute Code(s): R07.9 - CHEST PAIN, UNSPECIFIED SNOMED Code(s): 69388635 Comment: The patient has been having chest discomfort for the last couple weeks. Troponin is mildly elevated but did not climb. ? demand ischemia secondary to infection. No further cardiac testing at this time. (5) Hypothyroidism Current Visit: Yes Status: Acute Code(s): E03.9 - HYPOTHYROIDISM, UNSPECIFIED SNOMED Code(s): 61988162 Comment: Continue current dose of synthroid. TSH is in normal range. (6) Jaundice Current Visit: Yes Status: Acute Code(s): R17 - UNSPECIFIED JAUNDICE SNOMED Code(s): 27244381 Comment: The patient's bilirubin yesterday was elevated at 1.9, his alk phos was also elevated. Both decreased today. Liver ultrasound unremarkable. Possibly due to viral infection. No more clinical jaundice. (7) Atrial fibrillation Current Visit: Yes Status: Chronic Code(s): I48.91 - UNSPECIFIED ATRIAL FIBRILLATION SNOMED Code(s): 99581383 Comment: The patient is currently in SR/paced rhythm. Continue metoprolol and amiodarone. Continue rivaroxaban. (8) CHF (congestive heart failure) Current Visit: Yes Status: Chronic Code(s): I50.9 - HEART FAILURE, UNSPECIFIED SNOMED Code(s): 11861039 Comment: Pt with chronic systolic CHF. Swollen legs and possible pulmonary edema on CT and CXR. Lasix 20mg IV given. Will monitor for effect on BP and breathing. (9) DVT prophylaxis Current Visit: Yes Status: Acute Code(s): FBF3913 - SNOMED Code(s): 512330285 Comment: Kevin (10) DNR (do not resuscitate) Current Visit: Yes Status: Acute Status and Disposition: Inpatient
[2017-05-28] MEDS: CMC:Pravastatin (NF) 20 MG TAB PO SCH (21:08)
[2017-05-29 06:33] LABS: ABS Basophils 0.1 10^3/ul (0-0.2); ABS Eosinophils 0.2 10^3/ul (0-0.6); ABS Lymphocytes 1.3 10^3/ul (1.0-4.8); ABS Monocytes 0.9 10^3/ul (0-0.8); ABS Neutrophils 6.5 10^3/ul (1.5-7.7); ABS Nucleated RBC 0 10^3/ul; Eosinophil % 2.1 % (0-6); Hematocrit 31 % (42-52); Hemoglobin 10.6 g/dl (14.0-18.0); Lymphocyte % 14.4 % (25-47); Mean Corpuscular HGB Conc 34 g/dl (31-36); Mean Corpuscular Hemoglobin 29 pg (27-31); Mean Corpuscular Volume 84 fL (80-94); Mean Platelet Volume 8 um3 (7.4-10.4); Nucleated Red Blood Cells % 0.1; Platelet Count 404 10^3/ul (150-450); Red Blood Count 3.71 10^6/ul (4.0-5.4); Red Cell Distribution Width 18 % (10.5-15)
[2017-05-29] MEDS: Amiodarone TAB* 200 MG PO SCH (10:09)
[2017-05-29] MEDS: CMC:Pantoprazole TAB (NF) 40 MG TAB PO SCH (10:09)
[2017-05-29] MEDS: Furosemide TAB* 20 MG PO SCH (10:09)
[2017-05-29] MEDS: Famotidine TAB* 20 MG PO SCH (10:10)
[2017-05-29] MEDS: Folic Acid TAB* 1 MG PO SCH (10:10)
[2017-05-29] MEDS: Rivaroxaban TAB(*) 20 MG TAB PO SCH (10:10)
[2017-05-29] MEDS: Clopidogrel TAB* 75 MG PO SCH (10:10)
[2017-05-29] MEDS: Levothyroxine TAB* 100 MCG TAB PO SCH (10:10)
[2017-05-29] MEDS: Aspirin EC Low Dose* 81 MG TAB.EC PO SCH (10:10)
[2017-05-29] MEDS: Metoprolol Tartrate TAB* 25 MG PO SCH ×2 (10:32→21:06)
[2017-05-29] MEDS: cefTRIAXone(*) 1 GM in D5W 50 ML BAG* 50 ML IVPB SCH (12:05)
[2017-05-29] MEDS: Azithromycin IV(*) 500 MG in NS 0.9% 250 ML* 250 ML IVPB SCH (12:45)
[2017-05-29] MEDS ORDERED: Furosemide IV* 10 MG/ML 2 ML VIAL (20 MG) IV SLOW PU ONE (13:49)
--- NOTE | 2017-05-29 15:05 | PN ---
Subjective Date of Service: 05/29/17 Interval History: Patient has improved SOB and malaise. Patient denies CP with activity or at rest. Patient denies F/C, N/V, abdominal pain, diarrhea, constipation, dizziness , dysuria, changes in vision, ZAMORA, or other pain. Patient states that the swelling in his legs is increased well beyond what he is used to. Family History: Unchanged from Admission Social History: Unchanged from Admission Past Medical History: Unchanged from Admission Objective Active Medications: Acetaminophen (Tylenol Tab*) 650 mg PO Q4H PRN PRN Reason: FEVER/PAIN Al Hydrox/Mg Hydrox/Simethicone (Maalox Plus*) 30 ml PO Q4H PRN PRN Reason: INDIGESTION Albuterol (Ventolin 2.5 Mg/3 Ml Neb.Noreen*) 2.5 mg INH Q2H PRN PRN Reason: SOB/WHEEZING Amiodarone HCl (Cordarone Tab*) 300 mg PO DAILY [facility] Last Admin: 05/29/17 10:09 Dose: 300 mg Aspirin (Aspirin Ec Low Dose*) 81 mg PO DAILY [facility] Last Admin: 05/29/17 10:10 Dose: 81 mg Baclofen (Lioresal Tab*) 10 mg PO TID PRN PRN Reason: PAIN - BACK Calcium Carbonate (Tums*) 500 mg PO Q4H PRN PRN Reason: INDIGESTION Clopidogrel Bisulfate (Plavix Tab*) 75 mg PO DAILY [facility] Last Admin: 05/29/17 10:10 Dose: 75 mg Docusate Sodium (Colace Cap*) 100 mg PO DAILY PRN PRN Reason: CONSTIPATION Famotidine (Pepcid Tab*) 20 mg PO DAILY [facility] PRN Reason: Protocol Last Admin: 05/29/17 10:10 Dose: 20 mg Folic Acid (Folvite Tab*) 1 mg PO DAILY [facility] Last Admin: 05/29/17 10:10 Dose: 1 mg Furosemide (Lasix Tab*) 20 mg PO DAILY [facility] Last Admin: 05/29/17 10:09 Dose: 20 mg Ceftriaxone Sodium 1 gm/ (Dextrose) 50 mls @ 200 mls/hr IVPB Q24H [facility] Last Admin: 05/29/17 12:05 Dose: 200 mls/hr Levothyroxine Sodium (Synthroid Tab*) 200 mcg PO DAILY [facility] Last Admin: 05/29/17 10:10 Dose: 200 mcg Lorazepam (Ativan Tab(*)) 0.5 mg PO Q6H PRN PRN Reason: ANXIETY Metoprolol Tartrate (Lopressor Tab*) 25 mg PO BID [facility] Last Admin: 05/29/17 10:32 Dose: Not Given Nitroglycerin (Nitroglycerin Tab 0.4 Mg*) 0.4 mg SL Q5M PRN PRN Reason: ANGINA Pantoprazole Sodium (Protonix Tab (Nf)) 40 mg PO DAILY [facility] PRN Reason: Protocol Last Admin: 05/29/17 10:09 Dose: 40 mg Pravastatin Sodium (Pravachol (Nf)) 80 mg PO BEDTIME [facility] PRN Reason: Protocol Last Admin: 05/28/17 21:08 Dose: 80 mg Rivaroxaban (Xarelto(*)) 20 mg PO DAILY [facility] Last Admin: 05/29/17 10:10 Dose: 20 mg Vital Signs - 8 hr 05/29/17 05/29/17 08:00 08:06 Temperature 97.2 F Pulse Rate 57 Respiratory 20 Rate Blood Pressure 105/51 (mmHg) O2 Sat by Pulse 95 96 Oximetry Oxygen Devices in Use Now: None Appearance: Patient is a 66yo male who appears stated age and is sitting in the bed in [facility]. Eyes: No Scleral Icterus, PERRLA Ears/Nose/Mouth/Throat: NL Teeth, Lips, Gums, Clear Oropharnyx, Mucous Membranes Moist Neck: NL Appearance and Movements; NL JVP, Trachea Midline Respiratory: Symmetrical Chest Expansion and Respiratory Effort, - - Decreased breath sounds. Crackles in RLL. Cardiovascular: NL Sounds; No Murmurs; No JVD, RRR, - - 1+ pitting edema in B/L LE. Abdominal: NL Sounds; No Tenderness; No Distention, No Hepatosplenomegaly Lymphatic: No Cervical Adenopathy Extremities: No Clubbing, Cyanosis, - - Single subungual hemorrhage on right middle finger. No subconjuntival hemorrhage or palmar nodules. Skin: No Rash or Ulcers, No Nodules or Sclerosis Neurological: Alert and Oriented x 3, NL Sensation, NL Muscle Strength and Tone , - - CN II-XII intact. Result Diagrams: 05/29/17 05:55 05/29/17 05:55 Additional Lab and Data: Lab Results Microbiology and Other Data: Microbiology 05/26/17 16:44 Aerobic Blood Culture - Preliminary Blood Venous No Growth Day 1 Anaerobic Blood Culture - Preliminary No Growth Day 1 05/26/17 13:07 Aerobic Blood Culture - Preliminary Blood Venous Anaerobic Blood Culture - Preliminary No Growth Day 1 05/26/17 16:24 Legionella Urinary Antigen - Final Urine Negative Legionella Streptococcus pneumoniae Ag Screen - Final Negative S. 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 Concern for bacterial endocarditis. Plan for MAYRA. Respiratory status improved with antibiotics and diuresis. - Patient Problems (1) Bacteremia Current Visit: Yes Status: Acute Code(s): R78.81 - BACTEREMIA SNOMED Code( s): 1187760 Comment: Appreciate ID consult. The patient has 1 of 2 bottles positive for gram positive cocci which grew Strep pasteurianus. Concern for SBE. Single splinter hemorrhage. Plan for MAYRA in AM with cardiology. Will continue ceftriaxone. Repeat blood cultures tomorrow. Past h/o device associated endocarditis. CRP and Procalcitonin increased. (2) CAD (coronary artery disease) Current Visit: Yes Status: Acute Code(s): I25.10 - ATHSCL HEART DISEASE OF [place] CORONARY ARTERY W/O ANG PCTRS SNOMED Code(s): 84151276 Comment: Troponin is stable. Continue ASA, plavix, pravachol. Hold off on further cardiac testing for now. Likely demand ischemia. Had episode of chest pain yesterday when O2 taken off which resolved with its replacement. No CP today with removal of O2. (3) HTN (hypertension) Current Visit: Yes Status: Acute Code(s): I10 - ESSENTIAL (PRIMARY) HYPERTENSION SNOMED Code(s): 49954882 Comment: Improving despite lasix. Metoprolol held this morening due to hypotension. (4) Chest pain Current Visit: Yes Status: Acute Code(s): R07.9 - CHEST PAIN, UNSPECIFIED SNOMED Code(s): 97550222 Comment: The patient has been having chest discomfort for the last couple weeks. Troponin is mildly elevated but did not climb. ? demand ischemia secondary to infection. No further cardiac testing at this time. (5) Hypothyroidism Current Visit: Yes Status: Acute Code(s): E03.9 - HYPOTHYROIDISM, UNSPECIFIED SNOMED Code(s): 13284917 Comment: Continue current dose of synthroid. TSH is in normal range. (6) Jaundice Current Visit: Yes Status: Acute Code(s): R17 - UNSPECIFIED JAUNDICE SNOMED Code(s): 76500748 Comment: The patient's bilirubin yesterday was elevated at 1.4, his alk phos was also elevated. Bilirubin now WNL. Alk Phos persistently elevated. Liver ultrasound unremarkable. Possibly due to viral infection or hepatic congestion. No more clinical jaundice. (7) Atrial fibrillation Current Visit: Yes Status: Chronic Code(s): I48.91 - UNSPECIFIED ATRIAL FIBRILLATION SNOMED Code(s): 02302681 Comment: The patient is currently in SR/paced rhythm. Continue metoprolol and amiodarone. Continue rivaroxaban. (8) CHF (congestive heart failure) Current Visit: Yes Status: Chronic Code(s): I50.9 - HEART FAILURE, UNSPECIFIED SNOMED Code(s): 39312643 Comment: Pt with chronic systolic CHF. Swollen legs and possible pulmonary edema on CT and CXR. Lasix 20mg IV given x2. Able to be taken off O2 today. Still fluid positive for admission. Continue home lasix dose and diurese PRN. CXR repeat in AM. (9) DVT prophylaxis Current Visit: Yes Status: Acute Code(s): VVX5532 - SNOMED Code(s): 775898902 Comment: Kevin (10) DNR (do not resuscitate) Current Visit: Yes Status: Acute Status and Disposition: Inpatient
[2017-05-29] MEDS: CMC:Pravastatin (NF) 20 MG TAB PO SCH (21:07)
--- NOTE | 2017-05-29 21:27 | CONS ---
CONSULTATION REPORT: DATE OF CONSULT: 05/29/17 REQUESTING PROVIDER: MYRNA Luna CONSULTING SERVICE: Infectious Disease. REASON FOR CONSULT: Strep bacteremia. IMPRESSION: 1. A week of malaise, chills, rigors, blood cultures on admission 04/13 growing Streptococcus pasteurianus, which is gallolyticus subtype. Though it is only in 1/4 bottles, he did have a prodrome consistent with bacteremia. He has pacemaker infectious endocarditis on differential, has liver abscess though CT of chest showed most of his liver showed no area of infection and liver ultrasound was unremarkable as well, so it seems less likely. There is no association with colon polyp or malignancy with that organism. He does have patchy infiltrates on CT, which is not pulmonary edema, could be infectious due to this strep organism. 2. Obesity. 3. Ischemic cardiomyopathy and implantable cardioverter-defibrillator pacemaker. 4. History of left chest pacemaker pocket infection, 2000. 5. Coronary artery disease, status post coronary artery bypass graft. RECOMMENDATION: Continue ceftriaxone 1 daily. We will stop his azithromycin. Followup blood cultures were negative. We will obtain transesophageal echocardiogram. HISTORY OF PRESENT ILLNESS: This 66-year-old male with ICD pacemaker, admitted with rigor, malaise, and dyspnea. Earlier in the week, he did have left flank pain, which resolved with oxycodone and muscle relaxant. He has had no other urinary symptoms including frequency or dysuria. Has not noticed any blood in his urine. He has been diuresed here, his BNP was 376, troponin 0.06 at its peak, ALT 29, and white count 13, down to 9 today. Influenza PCR was negative. He had antibiotic started 05/26/17 and his followup cultures on 05/28/17 and blood were negative. He had a chest CT, which showed patchy infiltrates throughout both lungs. Transthoracic echocardiogram showed ejection fraction of 30% to 35%. His rigors have resolved. His breathing is better, he is able to lie flat. His appetite is much improved that have been gone for about the last week and he lost a couple of pounds, which is unusual for him. PAST MEDICAL HISTORY: 1. Coronary artery disease, status post coronary artery bypass. 2. Ischemic cardiomyopathy and right chest pacemaker as this is his fourth pacemaker, the first one was infected back in 2000. 3. Hypertension. 4. Hypothyroidism. 5. Hyperlipidemia. 6. History of bilateral popliteal aneurysm repair. 7. Status post thyroidectomy. 8. Lower extremity angioplasty. 9. Cardiac ablation for atrial fibrillation, March 2017. 10. Status post hernia repair with mesh. MEDICATIONS: 1. Tylenol. 2. Albuterol. 3. Amiodarone. 4. Aspirin. 5. Baclofen. 6. Calcium carbonate 7. Ceftriaxone 1 g a day. 8. Plavix. 9. Famotidine. 10. Folic acid. 11. Levothyroxine. 12. Lorazepam as needed. 13. Metoprolol. 14. Nitroglycerin as needed. 15. Pantoprazole. 16. Pravastatin. 17. Rivaroxaban. 18. Azithromycin. ALLERGIES: No known drug allergies. FAMILY HISTORY: No recurrent infections. SOCIAL HISTORY: Lives in [place] with his . He has no travel. REVIEW OF SYSTEMS: All negative to 14-point review of systems except as noted above. PHYSICAL EXAM: Vital Signs: Temperature is 36, heart rate 50, respiratory rate 20, blood pressure 105/51, oxygen saturation 96% on 2 L via nasal cannula. In general, he is awake, not in distress. Neurologic: He is oriented x3 and follows all commands. HEENT: There is no conjunctival hemorrhage. Oropharynx without lesions. Neck is supple. Lymph Nodes: There is no inguinal, axillary , or epitrochlear lymphadenopathy. Heart has regular rate and rhythm without murmurs, rubs, or gallops. Lungs are clear to auscultation bilaterally. Abdomen: Soft, nontender, nondistended. There are bowel sounds present. Skin : There is no rash or splinter hemorrhages. Chest: His right chest pacemaker pocket without erythema or tenderness. LABORATORY DATA: White blood cell count 9, hemoglobin 10, platelets 404. Creatinine is 1.2. Please see impressions and recommendations outlined above, which I have discussed with MYRNA Luna. Thanks for asking me to see Mr. Armstrong in consultation. [id number]/[facility] #: [id number] SHARA
[2017-05-30] MEDS ORDERED: CMCS Melatonin (NF) 3 MG TAB PO PRN (01:17)
[2017-05-30] MEDS: Levothyroxine TAB* 100 MCG TAB PO SCH (05:40)
[2017-05-30 05:56] LABS: ABS Basophils 0.1 10^3/ul (0-0.2); ABS Eosinophils 0.2 10^3/ul (0-0.6); ABS Lymphocytes 1.1 10^3/ul (1.0-4.8); ABS Neutrophils 7.6 10^3/ul (1.5-7.7); ABS Nucleated RBC 0 10^3/ul; Eosinophil % 1.6 % (0-6); Hematocrit 31 % (42-52); Hemoglobin 10.6 g/dl (14.0-18.0); Lymphocyte % 10.8 % (25-47); Mean Corpuscular HGB Conc 34 g/dl (31-36); Mean Corpuscular Hemoglobin 29 pg (27-31); Mean Corpuscular Volume 84 fL (80-94); Mean Platelet Volume 7 um3 (7.4-10.4); Nucleated Red Blood Cells % 0.1; Platelet Count 440 10^3/ul (150-450); Red Blood Count 3.71 10^6/ul (4.0-5.4); Red Cell Distribution Width 18 % (10.5-15); White Blood Count 9.9 10^3/ul (3.5-10.8)
[2017-05-30 06:10] LABS: EGFR Non-African American 69.5 (>60)
--- NOTE | 2017-05-30 08:26 | RAD ---
INDICATION: Pulmonary edema. COMPARISON: Comparison is made with a prior chest x-ray study from every 16 2018. TECHNIQUE: A portable view of the chest was obtained. FINDINGS: The heart is moderately enlarged. There is a dual-chamber transvenous pacemaker present. There is diffuse prominence of the interstitial markings. No focal infiltrate or pleural effusion is seen. IMPRESSION: FINDINGS SUGGESTIVE OF INTERSTITIAL PULMONARY EDEMA, SLIGHTLY IMPROVED.
[2017-05-30] MEDS ORDERED: Naloxone* 0.4 MG/ML 1 ML VIAL ONE (09:24)
[2017-05-30] MEDS ORDERED: Midazolam* 1 MG/ML 10 ML VIAL (10 MG) ONE (09:24)
[2017-05-30] MEDS ORDERED: Flumazenil* 0.1 MG/ML 5 ML MDV ONE (09:24)
[2017-05-30] MEDS ORDERED: fentaNYL* 50 MCG/ML 2 ML VIAL (100 MCG VIAL) ONE (09:24)
[2017-05-30] MEDS ORDERED: Lidocaine 2% VISCOUS* 15 ML UDC ONE (09:24)
[2017-05-30] MEDS: Metoprolol Tartrate TAB* 25 MG PO SCH ×2 (12:16→20:20)
[2017-05-30] MEDS: Furosemide TAB* 20 MG PO SCH (13:31)
[2017-05-30] MEDS: Folic Acid TAB* 1 MG PO SCH (13:34)
[2017-05-30] MEDS: Aspirin EC Low Dose* 81 MG TAB.EC PO SCH (13:35)
[2017-05-30] MEDS: Famotidine TAB* 20 MG PO SCH (13:35)
[2017-05-30] MEDS: CMC:Pantoprazole TAB (NF) 40 MG TAB PO SCH (13:35)
[2017-05-30] MEDS: Clopidogrel TAB* 75 MG PO SCH (13:35)
[2017-05-30] MEDS: Amiodarone TAB* 200 MG PO SCH (13:36)
[2017-05-30] MEDS: Rivaroxaban TAB(*) 20 MG TAB PO SCH (13:36)
[2017-05-30] MEDS ORDERED: Furosemide IV* 10 MG/ML 2 ML VIAL (20 MG) IV SLOW PU ONE (14:42)
[2017-05-30] MEDS: cefTRIAXone(*) 1 GM in D5W 50 ML BAG* 50 ML IVPB SCH (15:08)
--- NOTE | 2017-05-30 15:59 | PN ---
Progress Note - Progress Note Date of Service: 05/30/17 SOAP: Subjective: CC: bacteremia HPI: 66 year old man with ICD, admitted with dyspnea; 04/13 BC present growing VGS. MAYRA negative. Chills, sweats, and anorexia resolved. Objective: Vital Signs Temp 36.4 C 05/30/17 15:13 Pulse 56 05/30/17 15:13 Resp 16 05/30/17 15:13 BP 86/40 05/30/17 15:19 Pulse Ox 97 05/30/17 15:23 Intake & Output 05/29/17 05/30/17 05/30/17 18:59 06:59 18:59 Intake Total 2482 450 100 Output Total 1825 800 575 Balance 657 -350 -475 Weight 264 lb 4.8 oz Intake: IV Fluids 212 0 ABX - AZITHROMYCIN 160 0 ABX - CEFTRIAXONE 52 Oral 2270 450 100 Output: Urine 1825 800 575 Other: # Bowel Movements 1 0 Gen:awake, no distress HEENT:PERRL, MMM Heart:RRR no murmur Lungs:CTA BL Abd:+BS NTND soft Skin: no rash MSK: no spine tenderness Laboratory Results - last 24 hr 05/30/17 05/30/17 05:39 05:39 WBC 9.9 RBC 3.71 L Hgb 10.6 L Hct 31 L MCV 84 MCH 29 MCHC 34 RDW 18 H Plt Count 440 MPV 7 L Neut % (Auto) 77.2 Lymph % (Auto) 10.8 L Tucker % (Auto) 9.9 H Eos % (Auto) 1.6 Baso % (Auto) 0.5 Absolute Neuts (auto) 7.6 Absolute Lymphs (auto) 1.1 Absolute Monos (auto) 1.0 H Absolute Eos (auto) 0.2 Absolute Basos (auto) 0.1 Absolute Nucleated RBC 0 Nucleated RBC % 0.1 Sodium 133 Potassium 4.1 Chloride 101 Carbon Dioxide 25 Anion Gap 7 BUN 27 H Creatinine 1.06 Est GFR ( Amer) 89.4 Est GFR (Non-Af Amer) 69.5 BUN/Creatinine Ratio 25.5 H Glucose 111 H Calcium 9.1 Magnesium 2.1 Microbiology 05/26/17 13:07 Aerobic Blood Culture - Final Blood Venous Streptococcus Pasterianus Anaerobic Blood Culture - Preliminary No Growth Day 4 05/29/17 21:30 Gram Stain - Final Sputum 05/28/17 05:26 Aerobic Blood Culture - Preliminary Blood Venous No Growth Day 2 Anaerobic Blood Culture - Preliminary No Growth Day 2 05/26/17 16:44 Aerobic Blood Culture - Preliminary Blood Venous No Growth Day 3 Anaerobic Blood Culture - Preliminary No Growth Day 3 05/26/17 16:24 Urine Culture - Final Urine No Growth (<1,000 CFU/mL) Legionella Urinary Antigen - Final Negative Legionella Streptococcus pneumoniae Ag Screen - Final Negative S. pneumo Antigen 05/26/17 11:50 Influenza Types A,B Antigen (AZUCENA) - Final Nasal Specimen received for Influenza A/B Molecular testing Assessment: 1. Strep bacteremia; VGS, previous strep bovis; MAYRA negative, only in 1 /4 BC bottles so low likelihood of device infection 2. ICM, CHF s/p ICD 3. morbid obesity Plan: 1. continue ceftriaxone here, then levaquin 500 mg daily for 10 days Discussed with Jeovany NORRIS
--- NOTE | 2017-05-30 16:12 | TEE ---
Patient: VLADIMIR TAYLOR [facility] Rec#: [id number] : 1950 Date: 05/30/2017 Age: 66y Height: 185 cm / 72.8 in Weight: 118 kg / 260.1 lbs Sex: M BSA: 2.4 Room#: 452 Admit Date#: 05/26/2017 Type: Inpatient Referring: Jeovany Fonseca Performing: Nba Gamboa MD Reading: Nba Gamboa MD [employer] Analyst: Terri Mason RD,RDMS Nurse: Mare Ortega RN Transesophageal Echocardiogram Indication: Bacteremia BP: 114/49 HR: 60 Rhythm: NSR Findings History: Endocarditis of pacermaker wire, leads and generator removal and replacement, CAD, CHF, HTN, AFIB, angina Technical Comments: The study quality is good. Left Ventricle: The left ventricular chamber size is normal. Mild concentric left ventricular hypertrophy is observed. There is global hypokinesis of the left ventricle with minor regional variation. The estimated ejection fraction is 30-35%. Left Atrium: The left atrium is moderately dilated. There is no thrombus visualized in the left atrial appendage. Right Ventricle: The right ventricular chamber size and systolic function are within normal limits. A pacemaker wire is visualized in the right ventricle. There is no evidence of vegetation noted Right Atrium: The right atrial cavity size is severely dilated. The interatrial septum appears lipomatous. A patent foramen ovale is not demonstrated by color Doppler. Aortic Valve: The aortic valve is trileaflet. Systolic excursion of the aortic valve is normal. There is no evidence of aortic regurgitation. There is no evidence of aortic stenosis. There is no aortic vegetation present. Mitral Valve: The mitral valve leaflets appear normal. There is moderate to severe mitral regurgitation. There is no evidence of mitral stenosis. No vegetation is observed on the mitral valve. Tricuspid Valve: The tricuspid valve leaflets are normal. There is mild to moderate tricuspid regurgitation. There is evidence of mild pulmonary hypertension. No vegetation is observed on the tricuspid valve. Pulmonic Valve: The pulmonic valve appears normal. There is no evidence of pulmonic regurgitation. No vegetation is observed on the pulmonic valve. Pericardium: There is no significant pericardial effusion. Aorta: The aortic root appears normal. There is plaque visualized in the ascending aorta. There is plaque visualized in the descending aorta. Pulmonary Artery: The main pulmonary artery appears normal. Venous: The inferior vena cava appears normal. The flow pattern of the pulmonary veins appear normal. The superior vena cava appears normal. MAYRA Procedures: All standard views were attempted within the limitations of patient tolerance and safety. History and physical as well as labs were reviewed. The patient was in a fasting state. Risks and benefits of the procedure, including alternatives, were discussed and written informed consent was obtained. The patient and/or their health care healthcare sales representative expressed understanding of the procedure, risks and benefits. Baseline and continuous monitoring of blood pressure, heart rate, pulse oximetry and heart rhythm was performed throughout the procedure. The appropriate time-out procedure was performed as per [facility] protocol. The patient was placed in the left lateral decubitus position. The patient's posterior pharynx was anesthetized with 20ml of 2% viscous lidocaine. The patient received IV Midazolam with a total dose of 6 mg The patient received IV Fentanyl with a total dose of 75 mcg An oral bite block was inserted for protection of oral dentition. The multiplane transesophageal echocardiogram probe was inserted through the posterior oropharynx and advanced into the esophagus without difficulty. Multiple 2D images were obtained of the heart and its related structures. Color flow Doppler was used for evaluation. Spectral Doppler was also used. The atrial septum was interrogated with color flow Doppler. At the conclusion of the procedure the probe was removed with continuous suction without complications. The patient tolerated the procedure with no apparent complications. Conclusions There is global hypokinesis of the left ventricle with minor regional variation. The estimated ejection fraction is 30-35%. There is no thrombus visualized in the left atrial appendage. A pacemaker wire is visualized in the right ventricle. There is no evidence of vegetation noted A patent foramen ovale is not demonstrated by color Doppler. There is no evidence of aortic regurgitation. There is no aortic vegetation present. There is moderate to severe mitral regurgitation. No vegetation is observed on the mitral valve. There is mild to moderate tricuspid regurgitation. No vegetation is observed on the tricuspid valve. There is no significant pericardial effusion. Measurements Name Value Normal Range Ao root diameter (2D) 2.38 cm (2.1 - 3.5) Ascending Ao 3.26 cm (2.1 - 3.4) Name Value Normal Range MV E-wave Vmax 0.99 m/sec - MV deceleration time 120.17 msec - MV A-wave Vmax 0.03 m/sec - MV E:A ratio 35.26 ratio - Name Value Normal Range TR Vmax 3.25 m/sec - TR peak gradient 42.19 mmHg -
--- NOTE | 2017-05-30 17:42 | PN ---
Subjective Date of Service: 05/30/17 Interval History: Patient seen after return from [facility]. Drowsy. No complaints. Back on O2. Falls asleep during conversation. Decreased leg swelling per patient. No CP, F/C, N/V , diarrhea, constipation, abdominal pain, dysuria, ZAMORA, changes in Vision, or other pain. Family History: Unchanged from Admission Social History: Unchanged from Admission Past Medical History: Unchanged from Admission Objective Active Medications: Acetaminophen (Tylenol Tab*) 650 mg PO Q4H PRN PRN Reason: FEVER/PAIN Al Hydrox/Mg Hydrox/Simethicone (Maalox Plus*) 30 ml PO Q4H PRN PRN Reason: INDIGESTION Albuterol (Ventolin 2.5 Mg/3 Ml Neb.Noreen*) 2.5 mg INH Q2H PRN PRN Reason: SOB/WHEEZING Amiodarone HCl (Cordarone Tab*) 300 mg PO DAILY [facility] Last Admin: 05/30/17 13:36 Dose: 300 mg Aspirin (Aspirin Ec Low Dose*) 81 mg PO DAILY [facility] Last Admin: 05/30/17 13:35 Dose: 81 mg Baclofen (Lioresal Tab*) 10 mg PO TID PRN PRN Reason: PAIN - BACK Calcium Carbonate (Tums*) 500 mg PO Q4H PRN PRN Reason: INDIGESTION Clopidogrel Bisulfate (Plavix Tab*) 75 mg PO DAILY [facility] Last Admin: 05/30/17 13:35 Dose: 75 mg Docusate Sodium (Colace Cap*) 100 mg PO DAILY PRN PRN Reason: CONSTIPATION Famotidine (Pepcid Tab*) 20 mg PO DAILY [facility] PRN Reason: Protocol Last Admin: 05/30/17 13:35 Dose: 20 mg Folic Acid (Folvite Tab*) 1 mg PO DAILY [facility] Last Admin: 05/30/17 13:34 Dose: 1 mg Furosemide (Lasix Tab*) 20 mg PO DAILY [facility] Last Admin: 05/30/17 13:31 Dose: Not Given Ceftriaxone Sodium 1 gm/ (Dextrose) 50 mls @ 200 mls/hr IVPB Q24H [facility] Last Admin: 05/30/17 15:08 Dose: 200 mls/hr Levothyroxine Sodium (Synthroid Tab*) 200 mcg PO 0600 [facility] Last Admin: 05/30/17 05:40 Dose: 200 mcg Lorazepam (Ativan Tab(*)) 0.5 mg PO Q6H PRN PRN Reason: ANXIETY Melatonin (Melatonin (Nf)) 3 mg PO BEDTIME PRN; Protocol PRN Reason: SLEEP Last Admin: 05/30/17 01:31 Dose: 3 mg Metoprolol Tartrate (Lopressor Tab*) 25 mg PO BID [facility] Last Admin: 05/30/17 12:16 Dose: Not Given Nitroglycerin (Nitroglycerin Tab 0.4 Mg*) 0.4 mg SL Q5M PRN PRN Reason: ANGINA Pantoprazole Sodium (Protonix Tab (Nf)) 40 mg PO DAILY [facility]GELL[facility] PRN Reason: Protocol Last Admin: 05/30/17 13:35 Dose: 40 mg Pravastatin Sodium (Pravachol (Nf)) 80 mg PO BEDTIME ANGELLA PRN Reason: Protocol Last Admin: 05/29/17 21:07 Dose: 80 mg Rivaroxaban (Xarelto(*)) 20 mg PO DAILY [facility] Last Admin: 05/30/17 13:36 Dose: 20 mg Vital Signs - 8 hr 05/30/17 05/30/17 05/30/17 11:50 12:54 15:13 Temperature 97.4 F 97.6 F 97.5 F Pulse Rate 54 55 56 Respiratory 18 22 16 Rate Blood Pressure 96/39 112/56 83/39 (mmHg) O2 Sat by Pulse 95 99 97 Oximetry 05/30/17 05/30/17 05/30/17 15:19 15:23 16:31 Temperature Pulse Rate Respiratory Rate Blood Pressure 86/40 95/54 (mmHg) O2 Sat by Pulse 97 Oximetry 05/30/17 16:49 Temperature 97.5 F Pulse Rate 50 Respiratory 24 Rate Blood Pressure (mmHg) O2 Sat by Pulse 100 Oximetry Oxygen Devices in Use Now: Nasal Cannula - 2.5L Appearance: Patient is a 66yo male who appears stated age and is sitting in the bed in [facility]. Eyes: No Scleral Icterus, PERRLA Ears/Nose/Mouth/Throat: NL Teeth, Lips, Gums, Clear Oropharnyx, Mucous Membranes Moist Neck: NL Appearance and Movements; NL JVP, Trachea Midline Respiratory: Symmetrical Chest Expansion and Respiratory Effort, Clear to Auscultation Cardiovascular: NL Sounds; No Murmurs; No JVD, RRR, - - 1+ pitting edema in B/L LE. Abdominal: NL Sounds; No Tenderness; No Distention, No Hepatosplenomegaly Lymphatic: No Cervical Adenopathy Extremities: No Edema, No Clubbing, Cyanosis Skin: No Rash or Ulcers, No Nodules or Sclerosis Neurological: Alert and Oriented x 3, NL Sensation, NL Muscle Strength and Tone , - - CN II-XII intact. Result Diagrams: 05/30/17 05:39 05/30/17 05:39 Additional Lab and Data: Lab Results Microbiology and Other Data: Microbiology 05/26/17 16:44 Aerobic Blood Culture - Preliminary Blood Venous No Growth Day 1 Anaerobic Blood Culture - Preliminary No Growth Day 1 05/26/17 13:07 Aerobic Blood Culture - Preliminary Blood Venous Anaerobic Blood Culture - Preliminary No Growth Day 1 05/26/17 16:24 Legionella Urinary Antigen - Final Urine Negative Legionella Streptococcus pneumoniae Ag Screen - Final Negative S. 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 Concern for bacterial endocarditis but no vegetation on MAYRA. Respiratory status improved with antibiotics and diuresis. BP persistently low. - Patient Problems (1) Bacteremia Current Visit: Yes Status: Acute Code(s): R78.81 - BACTEREMIA SNOMED Code( s): 7424428 Comment: Appreciate ID consult. The patient has 1 of 4 bottles positive for gram positive cocci which grew Strep pasteurianus. Concern for SBE. Single splinter hemorrhage. MAYRA shows no vegetation. Will continue Ceftriaxone in hospital and transition to levaquin at D/C. Repeat blood cultures negative. Past h/o device associated endocarditis. Leads show no signs of vegetation. CRP and Procalcitonin increased. (2) CAD (coronary artery disease) Current Visit: Yes Status: Acute Code(s): I25.10 - ATHSCL HEART DISEASE OF [place] CORONARY ARTERY W/O ANG PCTRS SNOMED Code(s): 82343756 Comment: Troponin is stable. Continue ASA, plavix, pravachol. Hold off on further cardiac testing for now. Likely demand ischemia. Had one episode of chest pain yesterday when O2 taken off which resolved with its replacement. No CP today (3) HTN (hypertension) Current Visit: Yes Status: Acute Code(s): I10 - ESSENTIAL (PRIMARY) HYPERTENSION SNOMED Code(s): 97354802 Comment: Intermittently hypotensive. Metoprolol and lasix held this morning due to hypotension. Asymptomatic hypotension. (4) Chest pain Current Visit: Yes Status: Acute Code(s): R07.9 - CHEST PAIN, UNSPECIFIED SNOMED Code(s): 89790577 Comment: The patient has been having chest discomfort for the last couple weeks. Troponin is mildly elevated but did not climb. ? demand ischemia secondary to infection. No further cardiac testing at this time. (5) Hypothyroidism Current Visit: Yes Status: Acute Code(s): E03.9 - HYPOTHYROIDISM, UNSPECIFIED SNOMED Code(s): 47973778 Comment: Continue current dose of synthroid. TSH is in normal range. (6) Jaundice Current Visit: Yes Status: Acute Code(s): R17 - UNSPECIFIED JAUNDICE SNOMED Code(s): 43349424 Comment: The patient's bilirubin was elevated at 1.4, his alk phos was also elevated. Bilirubin now WNL. Alk Phos persistently elevated. Liver ultrasound unremarkable. Possibly due to viral infection or hepatic congestion. No more clinical jaundice. Will recheck LFTs tomorrow. (7) Atrial fibrillation Current Visit: Yes Status: Chronic Code(s): I48.91 - UNSPECIFIED ATRIAL FIBRILLATION SNOMED Code(s): 37944714 Comment: The patient is currently in SR/paced rhythm. S/P ablation late last year. Continue metoprolol and amiodarone. Continue rivaroxaban. (8) CHF (congestive heart failure) Current Visit: Yes Status: Chronic Code(s): I50.9 - HEART FAILURE, UNSPECIFIED SNOMED Code(s): 88692917 Comment: Pt with chronic systolic CHF. Swollen legs and possible pulmonary edema on CT and CXR. Lasix 20mg IV given x2. Able to be taken off O2 yesterday. Still fluid positive for admission. Continue home lasix dose and diurese PRN. CXR repeat shows improved interstitial infiltrates. Wean O2 as tolerated. (9) DVT prophylaxis Current Visit: Yes Status: Acute Code(s): XHH4137 - SNOMED Code(s): 000907584 Comment: Kevin (10) DNR (do not resuscitate) Current Visit: Yes Status: Acute Status and Disposition: Inpatient. Hopeful discharge home tomorrow.
[2017-05-30] MEDS: CMC:Pravastatin (NF) 20 MG TAB PO SCH (20:19)
[2017-05-31] MEDS: Levothyroxine TAB* 100 MCG TAB PO SCH (06:09)
[2017-05-31 07:27] LABS: ABS Basophils 0.1 10^3/ul (0-0.2); ABS Eosinophils 0.2 10^3/ul (0-0.6); ABS Lymphocytes 1.1 10^3/ul (1.0-4.8); ABS Monocytes 0.7 10^3/ul (0-0.8); ABS Neutrophils 5.4 10^3/ul (1.5-7.7); ABS Nucleated RBC 0 10^3/ul; Eosinophil % 2.4 % (0-6); Hematocrit 30 % (42-52); Hemoglobin 9.9 g/dl (14.0-18.0); Lymphocyte % 14.8 % (25-47); Mean Corpuscular HGB Conc 33 g/dl (31-36); Mean Corpuscular Hemoglobin 28 pg (27-31); Mean Corpuscular Volume 84 fL (80-94); Mean Platelet Volume 7 um3 (7.4-10.4); Nucleated Red Blood Cells % 0.1; Platelet Count 465 10^3/ul (150-450); Red Blood Count 3.55 10^6/ul (4.0-5.4); Red Cell Distribution Width 18 % (10.5-15); White Blood Count 7.5 10^3/ul (3.5-10.8)
[2017-05-31 07:41] LABS: EGFR Non-African American 68.7 (>60)
[2017-05-31] MEDS: Amiodarone TAB* 200 MG PO SCH (08:56)
[2017-05-31] MEDS: Metoprolol Tartrate TAB* 25 MG PO SCH (08:56)
[2017-05-31] MEDS: Clopidogrel TAB* 75 MG PO SCH (08:56)
[2017-05-31] MEDS: Rivaroxaban TAB(*) 20 MG TAB PO SCH (08:56)
[2017-05-31] MEDS: Aspirin EC Low Dose* 81 MG TAB.EC PO SCH (08:57)
[2017-05-31] MEDS: Furosemide TAB* 20 MG PO SCH (08:57)
[2017-05-31] MEDS: CMC:Pantoprazole TAB (NF) 40 MG TAB PO SCH (08:57)
[2017-05-31] MEDS: Famotidine TAB* 20 MG PO SCH (08:57)
[2017-05-31] MEDS: Folic Acid TAB* 1 MG PO SCH (08:57)
[2017-05-31] MEDS: cefTRIAXone(*) 1 GM in D5W 50 ML BAG* 50 ML IVPB SCH (11:43)
[2017-05-31 13:08] VITALS: BP 99/52
--- NOTE | 2017-06-01 08:57 | DS ---
CC: Dr. Berg; Dr. Nba Gamboa; Dr. Ibis Nowak * DISCHARGE SUMMARY: DATE OF ADMISSION: 05/26/17 DATE OF DISCHARGE: 05/31/17 PRIMARY CARE PROVIDER: Dr. Berg. PRIMARY UNIT MANAGER: Dr. Nba Gamboa. MY ATTENDING WHILE IN THE HOSPITAL: Melissa Small DO.* (DICTATED BY MYRNA DEXTER) PRIMARY DISCHARGE DIAGNOSES: 1. Shortness of breath. 2. Streptococcus pastorianus bacteremia. SECONDARY DISCHARGE DIAGNOSES: 1. Coronary artery disease with myocardial infarction and ICD implantation. 2. Hypertension. 3. Hypothyroidism, status post thyroidectomy. 4. Hyperlipidemia. 5. Congestive heart failure, ejection fraction of 30 to 35 in the distant past. 6. Atrial fibrillation, status post cardioversion and ablation. STUDIES DONE WHILE IN THE HOSPITAL: Electrocardiogram from 05/26/17 shows normal sinus rhythm, prolonged VA interval, left bundle branch block. No ST segment abnormalities, QTc of 474. No other abnormalities. Normal axis. Chest x-ray from 05/26/17 read as cardiomegaly with pulmonary interstitial edema. Transesophageal echocardiogram from 05/26/17 read as technically limited due to poor acoustic windows, mild concentric left ventricular hypertrophy observed. There is evidence of ischemic cardiomyopathy, global hypokinesis of the left ventricle with minor regional variation. Estimated ejection fraction of 30% to 35%. The endocardium not well visualized, septal and apical hypokinesis. There is abnormal ventricular septal wall motion consistent with right ventricular pacemaker. Assessment: Diastolic dysfunction nondiagnostic. Left atrium is mild to moderately dilated. A pacemaker wire was visualized in the right ventricle. A pacemaker wire was visualized in the right atrium. There is yysq-uk-oaevnlfy mitral regurgitation, bwuv-xs-mtjegtgq tricuspid regurgitation, evidence of moderate pulmonary hypertension. Chest CT 05/27/17 read as geographic multifocal airspace disease throughout both lungs. Differential includes infection or pulmonary alveolar edema. Liver ultrasound from 05/27/17 read as no acute sonographic pathology of the visualized portion of the abdomen. Transesophageal echocardiogram 05/29/17 read as global hypokinesis of the left ventricle with mild regional variation. Estimated ejection fraction of 30% to 35%. No thrombus was visualized in the right atrial appendage. Pacemaker wire is visualized in the right ventricle. There is no evidence of vegetation noted. There is patent foramen ovale that is not demonstrated by color Doppler. There is no evidence of aortic regurgitation. There is no aortic vegetation present. There is otrfxyxp-el-aisytu mitral regurgitation. No vegetation observed on the mitral valve. There is [id number]-ds-dmgqkmqd tricuspid regurgitation. No vegetation observed on tricuspid valve. There is no significant pericardial effusion. Chest x-ray from 05/30/17 read as findings suggestive of interstitial pulmonary edema, slightly improved. MEDICATIONS AT DISCHARGE: 1. Zantac 1 tab p.o. b.i.d. 2. Plavix 75 mg p.o. daily. 3. Furosemide 20 mg p.o. daily. 4. Xarelto 20 mg p.o. daily. 5. Levothyroxine 200 mcg p.o. daily. 6. Aspirin 81 mg p.o. daily. 7. Baclofen 10 mg p.o. 3 times a day as needed. 8. Docusate 100 mg p.o. daily as needed. 9. Pravastatin 80 mg p.o. at bedtime. 10. Nexium 20 mg p.o. daily. 11. Metoprolol succinate 37.5 mg p.o. b.i.d. 12. Amiodarone 300 mg p.o. daily. 13. Folic acid 1 mg p.o. daily. 14. Ferrous sulfate 325 mg p.o. every other day. 15. Levaquin 500 mg p.o. daily x14 days. New medications at discharge: 1. Ferrous sulfate. Medications discontinued at discharge: 1. Amlodipine 5 mg p.o. daily. 2. Valsartan 160 mg p.o. daily. HOSPITAL COURSE: This is a brief summary of the patient's presentation. For more details, please see the history and physical from Dorian Nuñez NP on . In brief, patient is a 66-year-old male with past medical history significant for the above, who presents with pain in his left side and left flank radiating to the center of his back, getting progressively worse throughout the week. Patient has chronic back pain and relieved with medications. Patient started having chills subsequently and was feeling very weak and has been coughing, poor appetite. He had one episode of chest discomfort, which relieved with nitroglycerin and then he had another episode of typical angina, which he has frequently, which went away without medication. No associated symptoms. Patient was awoken again in the middle of the night with feeling hot and sweaty. No shortness of breath. Patient was having chills and continued to cough. Patient was admitted to the hospital. In the emergency department, there was concern for acute coronary syndrome and he was admitted to the hospital for chest pain rule out. Patient had an echo, which was consistent with previous exams, read as above. Patient had troponins x4, 0.05, 0.05, 0.06, and 0.05. This was likely due to demand ischemia. Patient has no lactic acidosis. Patient had elevated bilirubin and alkaline phosphatase. Patient had benign urine, negative influenza. White blood cell count of 13.1. Patient was started on ceftriaxone for concern for pneumonia. Patient had negative legionella and Strep pneumo antigen. Patient's telemetry monitoring showed normal sinus rhythm at the time of his admission and throughout his hospitalization. The patient was normotensive when he arrived at the emergency department, so his medications were held except for his beta- rizwana including his Lasix. Patient was felt to be dehydrated on presentation to the emergency department. Patient continued to feel poorly overnight with frequent cough, it was nonproductive and with shortness of breath with minimal exertion. Patient's daughter notes that he appeared jaundiced. The patient was started on ceftriaxone and azithromycin, which was continued. Patient had elevated bilirubin. Patient has a history of device associated endocarditis and had 1 positive blood culture for streptococcus, so an ID consult was obtained. Patient had a liver ultrasound because of jaundice, which was negative as above. Patient had one episode of chest pain but he took off his oxygen. Patient was needed to be maintained on 3 L oxygen when he was started in the hospital, which was able to be weaned down after 2 days in the hospital. Patient's chest pain resolved after he replaced his oxygen at that point. Patient improved from 05/27/17 to 05/28/17. Patient was able to be weaned off with his oxygen. Patient had swelling in his legs at this point. He was not given fluids while in the emergency department but had gained 4 pounds from to 05/28/17 and was positive for approximately 3 L. When he first came into the hospital, the patient's urine was not recorded. 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 Patient does concern for endocarditis due to the patient's history of endocarditis and positive blood cultures. Patient' s streptococcus was susceptible to ceftriaxone. Patient had a transesophageal echo-cardiogram as above, which showed no vegetations; per ID consultation should be continued on 2 weeks of Levaquin at discharge after receiving ceftriaxone in the hospital due to bacteremia. Patient at admission had hemoglobin of 11.4, which decreased steadily down to 9.9 on the day of discharge. Patient states he has a history of anemia related to iron deficiency and had previously had a colonoscopy and EGD related to another which showed any active source of bleeding. Patient states that he was on iron previously that resolved his anemia that he discontinued himself. Patient denies palpitations or dizziness on standing. Patient had iron studies, which showed iron of 33, TIBC 333, percent saturation 9, ferritin of 146. Vitamin B12 and folate were also obtained; B12 at 570 and folate at greater than 20. There was concern upon review of patient's CT scan that this might represent interstitial fibrotic changes, which could be related to his amiodarone. Patient was amenable to referral to see pulmonology for pulmonary function tests and patient already had lung nodules, which were found on CT scan incidentally at [facility] when he was admitted there last year and it was recommended that he follow up with a repeat CT scan in June anyway. Patient was told to continue holding his valsartan and amlodipine at discharge, to check his blood pressure twice a day, and to call his primary care provider or hse specialist if his blood pressure went above 140 systolic for recommendation on restarting his home blood pressure medications. PHYSICAL EXAMINATION ON THE DAY OF DISCHARGE: General: The patient is a 66- year- old male who appears stated age and sitting comfortably in bed in no acute distress. HEENT: Head: Normocephalic, atraumatic. Sclerae anicteric. No conjunctival injection. Nasal mucosa moist. Oral mucosa moist. No pharyngeal erythema, discharge, or exudates. Neck: Supple, nontender. No lymphadenopathy. No carotid bruit auscultated. Cardiac: Bradycardic. S1, S2 present. No clicks, murmurs, gallops, or rubs. Pulses 2+ in bilateral dorsalis pedis, posterior tibialis, and radial areas. Trace edema in the bilateral lower extremities. Respiratory: Clear to auscultation bilaterally. No wheezes, rales, or rhonchi. Good air exchange bilaterally. Abdomen: Soft, nontender, nondistended. Bowel sounds present, normoactive in all 4 quadrants. No abdominal bruits auscultated. No hepatosplenomegaly. Skin: Clean, dry, and intact. No rash. Neuro: Cranial nerves II through XII intact. No focal deficits. Normal gait. Psychiatric: Pleasant and cooperative. LABORATORY DATA ON DAY OF DISCHARGE: White blood cell count 7.5, hemoglobin 9.9 , hematocrit 30, MCV 84, MCH 28, MCHC 33, RDW 18. Sodium 133, potassium 4.0, chloride 101, carbon dioxide 26, anion gap 6, BUN 25, creatinine 1.07, glucose 103, calcium 9.0, magnesium 2.3. Iron 33, TIBC 353, iron saturation 9%, saturated iron binding 320, ferritin 146.8. Total bilirubin 0.8, AST 28, ALT 28. Alkaline phosphatase 212, down from 222 the previous days. CRP 173.63, down from 243.76. Albumin 3.1, globulin 3.8. Vitamin B12 of 570, folate greater than 20. DISCHARGE PLAN: The patient will be discharged to home with close followup with his primary care provider for his anemia. Patient should have a colonoscopy. There is conflicting opinions on whether or not there is association between the bacteria for which he had bacteremia and colon cancer. Patient also should be assessed for causes of slow GI bleeding. Patient should follow up with Dr. Gamboa. He should also check his blood pressure and have his blood pressure medications resumed if applicable and particularly his diet and patient should follow up with Dr. Gamboa in 1 to 2 weeks for management of his CHF and for discussion of possibly stopping his amiodarone as his CT scan results as well as his dry cough could be a side effect of interstitial fibrosis , which could be due to his amiodarone. Patient should follow up with Dr. Nowak for formal pulmonary function testing and to discuss his interstitial lung findings and his pulmonary nodules on previous CT scan. Patient should take Levaquin 500 mg p.o. daily for 2 weeks for his bacteremia. Patient is return to the hospital for fevers, chills, chest pain, shortness of breath, or other alarming symptoms. Patient should engage in activity as tolerated. Patient should have a heart healthy diet without caffeine. TIME SPENT: Approximately 60 minutes was spent on this discharge, 30 of which was spent [id number]-[id number] with the patient obtaining history and physical and discussing treatment plan. MYRNA DEXTER [id number]/CPS #: [id number] SHARA
[2017-06-02] MEDS ORDERED: Ferrous Sulfate TAB* 325 MG PO SCH (15:00)
== END 2017-05-31 16:30 | disposition home or self-care (01) | DRG 313 ==
LOC: ED 08:43 → MEDTELE 10:32 → OBSVTOIN 05-28 13:47
PROVIDERS: ADMIT Hospitalist; ATTEND Internal Medicine
PROC: B24BZZ4 Ultrasonography of Heart with Aorta, Transesophageal (ICD-10-PCS; principal; 2017-05-28)
DX: R07.9 Chest pain, unspecified (principal); I24.8 Other forms of acute ischemic heart disease; J18.9 Pneumonia, unspecified organism; I27.20 Pulmonary hypertension, unspecified; I11.0 Hypertensive heart disease with heart failure; R78.81 Bacteremia; E66.01 Morbid (severe) obesity due to excess calories; I08.1 Rheumatic disorders of both mitral and tricuspid valves; I50.22 Chronic systolic (congestive) heart failure; I48.91 Unspecified atrial fibrillation; R17 Unspecified jaundice; E86.0 Dehydration; I25.10 Atherosclerotic heart disease of native coronary artery without angina pectoris; E89.0 Postprocedural hypothyroidism; F17.290 Nicotine dependence, other tobacco product, uncomplicated; E03.9 Hypothyroidism, unspecified; R05 Cough; E78.5 Hyperlipidemia, unspecified; Z66 Do not resuscitate; B95.5 Unspecified streptococcus as the cause of diseases classified elsewhere; I25.5 Ischemic cardiomyopathy; G89.29 Other chronic pain; M54.9 Dorsalgia, unspecified; R91.8 Other nonspecific abnormal finding of lung field; Z68.34 Body mass index [BMI] 34.0-34.9, adult; R35.0 Frequency of micturition; Z95.5 Presence of coronary angioplasty implant and graft; Z95.1 Presence of aortocoronary bypass graft; Z82.49 Family history of ischemic heart disease and other diseases of the circulatory system; Z95.810 Presence of automatic (implantable) cardiac defibrillator; I25.2 Old myocardial infarction; Z80.8 Family history of malignant neoplasm of other organs or systems
CPT/HCPCS: 36415; 71045; 71250; 76705; 80048; 80053; 81003; 81015; 82248; 82550; 82553; 82607; 82728; 82746; 83540; 83550; 83605; 83735; 83880; 84145; 84443; 84484; 85025; 85027; 85610; 85730; 86140; 87040; 87070; 87077; 87086; 87186; 87205; 87502; 87899; 93005; 93306; 93312; 93325; 94760; 99156; 99157; 99283; A9270-GY; C8929; G0378; J0456; J0696; J1940; J2250; J2310; J3010

== ENCOUNTER 2018-11-20 18:50 | Emergency (ER) | payer MEDICARE, BC ==
[2018-11-20] MEDS ORDERED: oxyCODONE TAB* 5 MG TAB PO ONE (19:44)
--- NOTE | 2018-11-20 19:44 | ED ---
Adult Trauma - HPI Summary HPI Summary: Patient complains of left-sided mid back pain status post mechanical fall today. Patient states he tripped while walking backwards and fell on a cinder block on his left side. Also complains of hematoma to left medial elbow. Patient is ambulatory. Denies incontinence or urinary retention. Also denies head injury, any other pain, injury or symptoms. Patient states he is taking Plavix and Xarelto. - History of Current Complaint Chief Complaint: EDBackInjuryPain Stated Complaint: BACK PAIN PER PT Time Seen by Provider: 11/20/18 19:18 Hx Obtained From: Patient, Family/Quality Compliance Manager Mechanism of Injury: Fall Loss of Consciousness: no loss of consciousness Onset/Duration: Started Hours Ago Onset of Pain: Immediate Onset Severity: Severe Current Severity: Severe Pain Intensity: 8 Pain Scale Used: 0-10 Numeric Location: Back, Extremities Character: Dull Aggravating Factor(s): Nothing Alleviating Factor(s): Nothing Associated Signs & Symptoms: Positive: Negative - Additional Pertinent History Primary Care Physician: [id number] - Allergy/Home Medications Allergies/Adverse Reactions: Allergies Allergy/AdvReac Type Severity Reaction Status Date / Time No Known Allergies Allergy Verified 10/31/17 07:19 PMH/Surg Hx/FS Hx/Imm Hx Endocrine/Hematology History: Reports: Hx Anticoagulant Therapy - PLAVIX, ASA, xeralto, Hx Thyroid Disease Denies: Hx Blood Disorders, Hx Blood Transfusions, Hx Bone Marrow Disease, Hx Diabetes, Hx Systemic Lupus Erythematosus, Hx Sickle Cell Disease, Hx Anemia , Hx Unexplained Bleeding, Other Endocrine/Hematological Disorders Cardiovascular History: Reports: Hx Aneurysm - popliteal s/p 1992, Hx Angina, Hx Angioplasty, Hx Auto Implanted Cardiovert Defib, Hx Cardiac Arrest, Hx Congestive Heart Failure, Hx Coronary Artery Disease, Hx Hypercholesterolemia, Hx Hypertension, Hx Myocardial Infarction, Hx Pacemaker/ICD, Hx Rheumatic Fever - as a child, Other Cardiovascular Problems/Disorders - CAD Denies: Hx Cardiomegaly, Hx Congenital Heart Disease, Hx Deep Vein Thrombosis , Hx Hypotension, Hx Peripheral Vascular Disease, Hx Syncope, Hx Valvular Heart Disease Respiratory History: Denies: Hx Asthma, Hx Chronic Obstructive Pulmonary Disease (COPD) History: Denies: Hx Chronic Renal Failure Sensory History: Reports: Hx Contacts or Glasses Denies: Hx Cataracts, Hx Eye Injury, Hx Eye Prosthesis, Hx Glaucoma, Hx Macular Degeneration, Hx Vision Problem, Hx Deafness, Hx Hearing Aid, Hx Hearing Problem, Other Sensory Impairments Opthamlomology History: Reports: Hx Contacts or Glasses Denies: Hx Cataracts, Hx Eye Injury, Hx Eye Prosthesis, Hx Glaucoma, Hx Macular Degeneration, Hx Vision Problem, Other Sensory Impairments Neurological History: Reports: Hx Headaches Psychiatric History: Denies: Hx Autism - Surgical History Surgery Procedure, Year, and Place: s/p hernia repair x2, left knee REPAIR. THYROIDECTOMY. ICD [address] [facility]. CABG X 4 1991 W/STENTS, Hx Anesthesia Reactions: No - Immunization History Date of Tetanus Vaccine: unk Date of Influenza Vaccine: 01/08/15 Infectious Disease History: No Infectious Disease History: Denies: Traveled Outside the [place] in Last 30 Days - Family History Known Family History: Positive: Cardiac Disease, Other - Laryngeal CA Family History: Father of [place] at 52. Mother - laryngeal CA. - Social History Alcohol Use: None Alcohol Amount: 2 Drinks Hx Substance Use: No Substance Use Type: Reports: None Hx Tobacco Use: Yes Smoking Status (MU): Light Every Day Tobacco Smoker Type: Pipe Amount Used/How Often: about 3/16 ounce of pipe tabacco a day,tabacco pouch last about 5days Length of Time of Smoking/Using Tobacco: since 1966 Have You Smoked in the Last Year: Yes Review of Systems Constitutional: Negative Eyes: Negative ENT: Negative Cardiovascular: Negative Respiratory: Negative Gastrointestinal: Negative Genitourinary: Negative Musculoskeletal: Other Positive: Bruising Neurological: Negative Psychological: Normal All Other Systems Reviewed And Are Negative: Yes Physical Exam - Summary Physical Exam Summary: Tenderness to palpation of left side paraspinal muscles of L-spine. Mild ecchymosis on lower rib cage of back. Lung sounds clear to auscultation bilaterally. PMS intact distally in bilateral lower extremities. Small hematoma to medial left upper extremity just proximal to elbow. Full range of motion of left elbow. No pain with palpation. No swelling of the joint. Triage Information Reviewed: Yes Vital Signs On Initial Exam: Initial Vitals Temp Pulse Resp BP Pulse Ox 98 F 54 18 142/63 92 11/20/18 18:51 11/20/18 18:51 11/20/18 18:51 11/20/18 18:51 11/20/18 18:51 Vital Signs Reviewed: Yes Appearance: Positive: Well-Appearing Skin: Positive: Warm Head/Face: Positive: Normal Head/Face Inspection Eyes: Positive: Normal Dental: Negative: Dental Fracture @, Bleeding Neck: Positive: Supple Respiratory/Lung Sounds: Positive: Clear to Auscultation Cardiovascular: Positive: Normal Abdomen Description: Positive: Nontender Musculoskeletal: Positive: Normal Neurological: Positive: Normal Psychiatric: Positive: Normal AVPU Assessment: Alert - Micheal Coma Scale Best Eye Response: 4 - Spontaneous Best Motor Response: 6 - Obeys Commands Best Verbal Response: 5 - Oriented Coma Scale Total: 15 Diagnostics - Vital Signs Vital Signs Temp Pulse Resp BP Pulse Ox 11/20/18 18:51 98 F 54 18 142/63 92 - Laboratory Lab Statement: Any lab studies that have been ordered have been reviewed, and results considered in the medical decision making process. Adult Trauma Course/Dx - Course Course Of Treatment: Patient complains of left-sided mid back pain status post mechanical fall today. Patient states he tripped while walking backwards and fell on a cinder block on his left side. Also complains of hematoma to left medial elbow. Patient is ambulatory. Denies incontinence or urinary retention. Also denies head injury, any other pain, injury or symptoms. Patient states he is taking Plavix and Xarelto. Vital signs within normal limits. X-ray left ribs and lungs negative. Patient pain improveed with oxycodone 5 mg. Rx for same. - Diagnoses Provider Diagnoses: Back injury, Hematoma Discharge - Sign-Out/Discharge Documenting (check all that apply): Patient Departure Patient Received Moderate/Deep Sedation with Procedure: No - Discharge Plan Condition: Stable Disposition: HOME Prescriptions: Oxycodone HCl 5 mg PO TID 2 Days #5 tablet MDD 3 tabs oxyCODONE TAB* [Roxycodone TAB 5 mg*] 5 mg PO Q8H PRN #5 tab MDD 3 PRN Reason: Pain - Severe Patient Education Materials: Back Pain (ED), Hematoma (ED) Referrals: Surjit Berg MD [Primary Care Provider] - Additional Instructions: Return to the ED for any new or worsening symptoms. - Billing Disposition and Condition Condition: STABLE Disposition: Home
[2018-11-20 21:15] VITALS: BP 130/63
== END 2018-11-20 21:14 | disposition home or self-care (01) ==
LOC: ED 18:50
DX: S30.0XXA Contusion of lower back and pelvis, initial encounter (principal); W01.198A Fall on same level from slipping, tripping and stumbling with subsequent striking against other object, initial encounter; Y92.9 Unspecified place or not applicable; I50.9 Heart failure, unspecified; I25.119 Atherosclerotic heart disease of native coronary artery with unspecified angina pectoris; E78.00 Pure hypercholesterolemia, unspecified; I11.0 Hypertensive heart disease with heart failure; I25.2 Old myocardial infarction; Z95.810 Presence of automatic (implantable) cardiac defibrillator; Z95.1 Presence of aortocoronary bypass graft; F17.290 Nicotine dependence, other tobacco product, uncomplicated; Z79.01 Long term (current) use of anticoagulants; Z79.82 Long term (current) use of aspirin; Z79.899 Other long term (current) drug therapy
CPT/HCPCS: 99282; A9270-GY

== ENCOUNTER 2018-11-24 09:56 | Emergency (ER) | payer MEDICARE, BC ==
[2018-11-24 11:34] LABS: ABS Basophils 0.1 10^3/ul (0-0.2); ABS Eosinophils 0.1 10^3/ul (0-0.6); ABS Lymphocytes 0.9 10^3/ul (1.0-4.8); ABS Monocytes 0.8 10^3/ul (0-0.8); ABS Neutrophils 6.8 10^3/ul (1.5-7.7); Eosinophil % 1.3 %; Hematocrit 37 % (42-52); Hemoglobin 12.9 g/dL (14.0-18.0); Lymphocyte % 10.5 %; Mean Corpuscular HGB Conc 35 g/dL (31-36); Mean Corpuscular Hemoglobin 32 pg (27-31); Mean Corpuscular Volume 92 fL (80-94); Mean Platelet Volume 8.4 fL (7.4-10.4); Platelet Count 210 10^3/uL (150-450); Red Blood Count 4.06 10^6 /uL (4.18-5.48); Red Cell Distribution Width 17 % (10-15); White Blood Count 8.7 10^3/uL (3.5-10.8)
--- NOTE | 2018-11-24 11:35 | ED ---
Abdominal Pain/Male - HPI Summary HPI Summary: The pt is a 67 yr old male presenting to [facility] c/o of LLQ abd pain beginning 4 days [employer]. He states that the abd pain has worsened gradually until today and that taking stool softeners did not help. He notes that the LLQ pain covers a large area and is described as a constant pressure feeling. He rate his current pain severity a 6/10. No alleviating factors noted. He mentions that he visited [facility] for a fall 5 days [employer] and was given oxycodone for back pain. His back pain is aggravated by lying down. The CXR taken at that time did not reveal any evidence of rib fracture. He also reports constipation. He has surgical Hx of hernia repair. - History of Current Complaint Chief Complaint: EDConstipation Stated Complaint: ABD PAIN PER PT Time Seen by Provider: 11/24/18 10:54 Hx Obtained From: Patient Onset/Duration: Gradual Onset, Lasting Days, Still Present, Worse Since - 4 days [employer] Timing: Constant, Lasting Days Severity Initially: Moderate Severity Currently: Moderate Pain Intensity: 6 Pain Scale Used: 0-10 Numeric Location: Discrete At: LLQ Character: Other: - Pressure Aggravating Factor(s): Other: - back pain from fall injury is aggravated by lying down Alleviating Factor(s): Nothing Associated Signs And Symptoms: Positive: Constipation, Other - pos - back pain - Allergies/Home Medications Allergies/Adverse Reactions: Allergies Allergy/AdvReac Type Severity Reaction Status Date / Time No Known Allergies Allergy Verified 11/24/18 10:15 PMH/Surg Hx/FS Hx/Imm Hx Endocrine/Hematology History: Reports: Hx Anticoagulant Therapy - PLAVIX, ASA, xeralto, Hx Thyroid Disease Denies: Hx Blood Disorders, Hx Blood Transfusions, Hx Bone Marrow Disease, Hx Diabetes, Hx Systemic Lupus Erythematosus, Hx Sickle Cell Disease, Hx Anemia , Hx Unexplained Bleeding, Other Endocrine/Hematological Disorders Cardiovascular History: Reports: Hx Aneurysm - popliteal s/p 1992, Hx Angina, Hx Angioplasty, Hx Auto Implanted Cardiovert Defib, Hx Cardiac Arrest, Hx Congestive Heart Failure, Hx Coronary Artery Disease, Hx Hypercholesterolemia, Hx Hypertension, Hx Myocardial Infarction, Hx Pacemaker/ICD, Hx Rheumatic Fever - as a child, Other Cardiovascular Problems/Disorders - CAD Denies: Hx Cardiomegaly, Hx Congenital Heart Disease, Hx Deep Vein Thrombosis , Hx Hypotension, Hx Peripheral Vascular Disease, Hx Syncope, Hx Valvular Heart Disease Respiratory History: Denies: Hx Asthma, Hx Chronic Obstructive Pulmonary Disease (COPD) GI History: Reports: Hx Hiatal Hernia History: Denies: Hx Chronic Renal Failure Sensory History: Reports: Hx Contacts or Glasses Denies: Hx Cataracts, Hx Eye Injury, Hx Eye Prosthesis, Hx Glaucoma, Hx Macular Degeneration, Hx Vision Problem, Hx Deafness, Hx Hearing Aid, Hx Hearing Problem, Other Sensory Impairments Opthamlomology History: Reports: Hx Contacts or Glasses Denies: Hx Cataracts, Hx Eye Injury, Hx Eye Prosthesis, Hx Glaucoma, Hx Macular Degeneration, Hx Vision Problem, Other Sensory Impairments Neurological History: Reports: Hx Headaches, Hx Transient Ischemic Attacks (TIA) Psychiatric History: Denies: Hx Autism - Surgical History Surgery Procedure, Year, and Place: s/p hernia repair x2, left knee REPAIR. THYROIDECTOMY. ICD [address] [facility]. CABG X 4 1991 W/STENTS, Hx Anesthesia Reactions: No - Immunization History Date of Tetanus Vaccine: unk Date of Influenza Vaccine: 01/08/15 Infectious Disease History: No Infectious Disease History: Denies: Traveled Outside the [place] in Last 30 Days - Family History Known Family History: Positive: Cardiac Disease, Other - Laryngeal CA Family History: Father of [place] at 52. Mother - laryngeal CA. - Social History Alcohol Use: None Alcohol Amount: 2 Drinks Hx Substance Use: No Substance Use Type: Reports: None Hx Tobacco Use: Yes Smoking Status (MU): Light Every Day Tobacco Smoker Type: Pipe Amount Used/How Often: about 3/16 ounce of pipe tabacco a day,tabacco pouch last about 5days Length of Time of Smoking/Using Tobacco: since 1966 Have You Smoked in the Last Year: Yes Review of Systems Positive: Abdominal Pain - @ LLQ, Other - pos - constipation Positive: Other - pos - back pain All Other Systems Reviewed And Are Negative: Yes Physical Exam - Summary Physical Exam Summary: Appearance: The patient is well-nourished in no acute distress and in no acute pain. Skin: The skin is warm and dry and skin color reflects adequate perfusion. Ecchymosis to the left CVA. HEENT: The head is normocephalic and atraumatic. The pupils are equal and reactive. The conjunctivae are clear and without drainage. Nares are patent and without drainage. Mouth reveals moist mucous membranes and the throat is without erythema and exudate. The external ears are intact. The ear canals are patent and without drainage. The tympanic membranes are intact. Neck: The neck is supple with full range of motion and non-tender. There are no carotid bruits. There is no neck vein distension. Respiratory: Chest is non-tender. Lungs are clear to auscultation and breath sounds are symmetrical and equal. Cardiovascular: Heart is regular rate and rhythm. There is no murmur or rub auscultated. There is no peripheral edema and pulses are symmetrical and equal. Abdomen: The abdomen is soft. Left lateral and LLQ abdominal tenderness. There are normal bowel sounds heard in all four quadrants and there is no organomegaly palpated. Musculoskeletal: There is no back tenderness noted. Extremities are non-tender with full range of motion. There is good capillary refill. There is no peripheral edema or calf tenderness elicited. Neurological: Patient is alert and oriented to person, place and time. The patient has symmetrical motor strength in all four extremities. Cranial nerves are grossly intact. Deep tendon reflexes are symmetrical and equal in all four extremities. Psychiatric: The patient has an appropriate affect and does not exhibit any anxiety or depression. Triage Information Reviewed: Yes Vital Signs On Initial Exam: Initial Vitals Temp Pulse Resp BP Pulse Ox 97.6 F 56 14 126/69 94 11/24/18 10:12 11/24/18 10:12 11/24/18 10:12 11/24/18 10:12 11/24/18 10:12 Vital Signs Reviewed: Yes Diagnostics - Vital Signs Vital Signs Temp Pulse Resp BP Pulse Ox 11/24/18 11:00 56 17 95 11/24/18 10:45 56 22 95 11/24/18 10:40 56 21 128/60 93 11/24/18 10:12 97.6 F 56 14 126/69 94 - Laboratory Result Diagrams: 11/24/18 11:15 11/24/18 11:15 Lab Statement: Any lab studies that have been ordered have been reviewed, and results considered in the medical decision making process. - CT CT A/P CT Interpretation Completed By: Radiologist Summary of CT Findings: IMPRESSION: 1. LEFT BASILAR ATELECTASIS WITH A LEFT PLEURAL EFFUSION. 2. NONDISPLACED FRACTURE OF THE LEFT 10TH RIB POSTERIORLY. 3. CHOLELITHIASIS. 4. ATHEROSCLEROSIS. 5. ENLARGED PROSTATE. 6. FAT- CONTAINING UMBILICAL HERNIA. LEFT INGUINAL HERNIA CONTAINING FAT AND A SMALL PORTION OF SIGMOID COLON WITHOUT OBSTRUCTION. ED Physician has reviewed this report. Re-Evaluation - Re-Evaluation First Eval Re-Evaluation Time: 12:36 - lab and imaging results discussed with pt. Abdominal Pain Male Course/Dx - Course Course Of Treatment: Mr. Armstrong presented with about 4 days of left lower quadrant pain gradually worsening. He felt that he was constipated from having taken a few doses of hydrocodone after falling a week ago. He has used Dulcolax , MOM and MiraLAX. He was nontoxic in appearance with tenderness very low in his left lower quadrant. Labs are unremarkable and a CT of his abdomen revealed a mild left inguinal hernia. Also noted was a 10th rib fracture that plain x-ray missed. I was unable to reduce this hernia. Part of the problem is that he is unable to lie flat on his back with his legs propped up and is additionally unwilling to take narcotic pain medication because of the constipation. CT did show some stool in his ascending colon. I contacted Dr. Mejía to try to get him follow-up next week in the office. There is no sign of obstruction or strangulation to his hernia and I recommended that he return if he developed any new symptoms or the pain worsened. - Diagnoses Provider Diagnoses: Inguinal hernia Discharge - Sign-Out/Discharge Documenting (check all that apply): Patient Departure - discharge Patient Received Moderate/Deep Sedation with Procedure: No - Discharge Plan Condition: Stable Disposition: HOME Patient Education Materials: Inguinal Hernia (ED) Referrals: Surjit Berg MD [Primary Care Provider] - 3 Days Roxana Mejía MD [Medical Doctor] - 3 Days Additional Instructions: Please follow up with your primary care doctor and Dr. Mejía in the next 2-3 days and return to the emergency department for worsening or concerning symptoms. - Billing Disposition and Condition Condition: STABLE Disposition: Home - Attestation Statements Document Initiated by Janice: Yes Documenting Scribe: Ney Zayas Provider For Whom Janice is Documenting (Include Credential): Andi Muhammad MD Scribe Attestation: Ney Eddy, scribed for Andi Muhammad MD on 11/24/18 at 2000. Scribe Documentation Reviewed: Yes Provider Attestation: The documentation as recorded by the Ney tavera accurately reflects the service I personally performed and the decisions made by me, Andi Muhammad MD Status of Scribe Document: Viewed
[2018-11-24 11:42] LABS: INR 2.29 (0.82-1.09)
[2018-11-24 11:47] LABS: Albumin 4.1 g/dL (3.2-5.2); Albumin/Globulin Ratio 1.1 (1-3); BUN/Creatinine Ratio 15.4 (8-20); C Reactive Protein 88.1 mg/L (<8.01); Calcium 9.5 mg/dL (8.6-10.3); EGFR African American 74.8 (>60); EGFR Non-African American 61.8 (>60); Globulin 3.9 g/dL (2-4); Potassium 3.9 mmol/L (3.5-5.0); Total Bilirubin 1.2 mg/dL (0.2-1.0)
[2018-11-24 11:53] LABS: Urine Appearance Clear; Urine Bilirubin Negative (Negative); Urine Blood Negative (Negative); Urine Color Yellow; Urine Glucose Negative (Negative); Urine Ketones Negative (Negative); Urine Nitrite Negative (Negative); Urine Protein Negative (Negative); Urine Specific Gravity 1.008 (1.010-1.030); Urine Urobilinogen Negative (Negative)
[2018-11-24 14:03] VITALS: BP 114/66
== END 2018-11-24 14:15 | disposition home or self-care (01) ==
LOC: ED 09:56
DX: K40.90 Unilateral inguinal hernia, without obstruction or gangrene, not specified as recurrent (principal); J98.11 Atelectasis; J90 Pleural effusion, not elsewhere classified; K80.20 Calculus of gallbladder without cholecystitis without obstruction; E07.9 Disorder of thyroid, unspecified; I50.9 Heart failure, unspecified; I25.119 Atherosclerotic heart disease of native coronary artery with unspecified angina pectoris; E78.00 Pure hypercholesterolemia, unspecified; I11.0 Hypertensive heart disease with heart failure; I25.2 Old myocardial infarction; F17.290 Nicotine dependence, other tobacco product, uncomplicated; Z95.810 Presence of automatic (implantable) cardiac defibrillator; Z86.74 Personal history of sudden cardiac arrest; Z79.01 Long term (current) use of anticoagulants; Z79.82 Long term (current) use of aspirin
CPT/HCPCS: 36415; 74176; 80053; 81003; 83605; 83690; 85025; 85610; 86140; 99283

== ENCOUNTER 2018-12-11 12:54 | Emergency (ER) | payer MEDICARE, BC ==
--- OUTSIDE RECORDS SUMMARY | 2018-12-11 13:22 | XMS REPORT | Continuity of Care Document ---
:1950 External Reference #:[id number] Author Name Roxana Mejía MD (transmitted by agent of provider Rach De La Paz) Address [address], [place] [address] Care Team Providers Name Role Phone Surjit Berg M.D. 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 Onset: 01/18/2013 Arteriosclerosis of autologous vein coronary Nba Gamboa M.D. Onset: artery bypass graft Primary cardiomyopathy Nba Gamboa M.D. Onset: 01/18/2013 Atrial fibrillation Nba Gamboa M.D. Onset: 01/18/2013 Paroxysmal ventricular tachycardia Nba Gamboa M.D. Onset: 03/13/2013 Atrial flutter Nba Gamboa M.D. Onset: 03/13/2013 Coronary arteriosclerosis Nba Gamboa M.D. Onset: 05/30/2013 Cardiomyopathy, unspecified MYRNA Chen Onset: 01/30/2015 Social History Type Date Description Comments Sex Unknown ETOH Use consumes 4-5 beers per week Tobacco Use Start: Unknown Patient is a current pipe, 2-4 times per smoker, smokes every day day Recreational Drug Use Denies Drug Use Smoking Status Reviewed: 12/03/18 Patient is a current pipe, 2-4 times per smoker, smokes every day day Exercise Type/Frequency Exercises regularly walking daily Allergies, Adverse Reactions, Alerts Description No Known Drug Allergies Medications Active Medications SIG Qnty Indications Ordering Provider Date Amlodipine Besylate 1 by mouth every 90tabs Nba Gamboa, 04/10/2018 5mg day M.D. Tablets Furosemide 1 by mouth once 30tabs Arjun Ramon, 12/25/2017 40mg Tablets a day DO FACC Klor-Con M20 1 by mouth every 90tabs Nba Gamboa, 03/14/2017 20Meq day in the M.D. Tablets ER morning Nitrostat one sl q5min up 25tabs Nba Gamboa, 09/18/2012 0.4mg Tablets to 3 doses as M.D. Sub needed Xarelto 1 by mouth every 90tabs Nba Gamboa, 09/14/2012 20mg Tablets day taken at M.D. bedtime Plavix 1 tab by mouth 90tabs Nba Gamboa, 03/27/2012 75mg Tablets every day in the M.D. morning Amiodarone HCL 1 1/2 po qd Am 90tabs Unknown 200mg Tablets Folic Acid 1 po qd Unknown 1mg Pravastatin Sodium 1 tablet once 30tabs Unknown 80mg daily at bedtime Tablets Ranitidine HCL 1 by mouth two 60tabs Unknown 150mg times per day Tablets Metoprolol Succinate 1 tablet once 90tabs Arjun Ramno, ER daily DO FACC 25mg Tablets ER 24HR Aspirin 1 by mouth every Unknown 81mg Tablets day Am Synthroid 1 by mouth every Unknown 200mcg day Am Tablets Nitro-Dur on at at bedtime 90units Nba Gamboa, 0.4mg/HR off in in the M.D. Patches 24HR morning prn Fluticasone 2 sprays each Unknown Propionate nostril daily as 50mcg/Act needed Suspension Docusate Sodium as needed Unknown 100mg Capsules Medications Administered in Office Medication SIG Qnty Indications Ordering Provider Date Depomedrol 40MG Erika Jessica M.D. 02/01/2016 Injection Inj, Regadenoson, 0.1 MG Nba Gamboa M.D. 08/01/2013 Injection Technetium TC 99M Tetrofosmin, Nba Gamboa M.D. 08/01/2013 Per Unit Dose Up To 40 Millicuries Injection Inj, Regadenoson, 0.1 MG Nba Gamboa M.D. 08/29/2012 Injection Technetium TC 99M TetrofosminNba M.D. 08/29/2012 Per Unit Dose Up To 40 Millicuries Injection Immunizations Description No Information Available Vital Signs Date Vital Result Comment 12/03/2018 1:57pm Height 72 inches 6'0" Weight 269.00 lb Heart Rate 60 /min BP Systolic Sitting 124 mmHg BP Diastolic Sitting 72 mmHg Respiratory Rate 16 /min Body Temperature 97.9 F BMI (Body Mass Index) 36.5 kg/m2 09/18/2018 9:51am Height 72 inches 6'0" 6' Weight 269.00 lb Heart Rate 54 /min BP Systolic Sitting 124 mmHg Lue large cuff BP Diastolic Sitting 64 mmHg Lue large cuff Respiratory Rate 22 /min O2 % BldC Oximetry 94 % On Ra BMI (Body Mass Index) 36.5 kg/m2 Results Description No Information Available Procedures Date Code Description Status 09/18/2018 81540 Diffusing Capacity Completed 09/18/2018 49047 Spirometry Incl Graphic Record Completed 09/11/2018 49483 EKG Tracing & Interpretation Completed 08/20/2018 02228 EKG, Interpretation Only Completed 08/20/2018 09329 Cardioversion Completed 08/15/2018 77212 Interrogation Implant Cardiovasc Monitor System Incl Completed Analysis Int 08/15/2018 75978 Interrogation Implant Cardiovasc Monitor System Incl Completed Analysis Int 08/15/2018 49381 Icd Eval With Inerative Adjustmt Dual Lead System Completed 08/15/2018 50533 Icd Eval With Inerative Adjustmt Dual Lead System Completed 06/19/2018 41750 Diffusing Capacity Completed 06/19/2018 99701 Spirometry Incl Graphic Record Completed 03/21/2014 31840858 Colonoscopy Completed Medical Devices Description No Information Available Encounters Type Date Location Provider Dx Diagnosis Office Visit 09/18/2018 [facility] Sanabria84.10 Pulmonary 10:30a [facility] josie Cma unspecified J98.4 Other disorders of lung Office Visit 09/11/2018 1:00p [facility] Nba Rivera I48.0 Paroxysmal [place] [facility] [place] Gamboa fibrillation I50.9 Heart failure, unspecified Z95.810 Presence of automatic (implantable) cardiac defibrillator I25.5 Ischemic cardiomyopathy 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 unspecified Z95.810 Presence of automatic (implantable) cardiac defibrillator J84.10 Pulmonary fibrosis, unspecified I25.5 Ischemic cardiomyopathy I48.92 Unspecified atrial flutter Office Visit 06/19/2018 12:00p [facility] Ibis J98.4 Other disorders [facility] Eliu of lung [facility] Assessments Date Code Description Provider 12/03/2018 K40.91 Unilateral inguinal hernia, without Roxanachino Mejía MD obstruction or gangrene, recurrent 09/18/2018 J84.10 Pulmonary fibrosis, unspecified Ibis Nowak MD 09/18/2018 J84.10 Pulmonary fibrosis, unspecified Ibis Nowak MD 09/18/2018 J98.4 Other disorders of lung Ibis Nowak MD 09/11/2018 I48.0 Paroxysmal atrial fibrillation Nba Gamboa M.D. 09/11/2018 I50.9 Heart failure, unspecified Nba Gamboa M.D. 09/11/2018 Z95.810 Presence of automatic (implantable) Nba Gamboa M.D. cardiac defibrillator 09/11/2018 I25.5 Ischemic cardiomyopathy Nba Gamboa M.D. 09/11/2018 Z79.01 [facility] (current) use of Nba Gamboa M.D. anticoagulants 09/11/2018 I25.10 Atherosclerotic heart disease of Nba Gamboa M.D. [place] coronary artery with 08/20/2018 R94.31 Abnormal electrocardiogram [ECG] [EKG] Eun Valente M.D. 08/20/2018 I48.0 Paroxysmal atrial fibrillation Nba Gamboa M.D. 08/15/2018 I50.9 Heart failure, unspecified Nba Gamboa M.D. 08/15/2018 I50.9 Heart failure, unspecified Nba Gamboa M.D. 08/15/2018 I50.9 Heart failure, unspecified Ica Pacer Schedule 08/15/2018 Z95.810 Presence of automatic (implantable) Nba Gamboa M.D. cardiac defibrillator 08/15/2018 Z95.810 Presence of automatic (implantable) Nba Gamboa M.D. cardiac defibrillator 08/15/2018 Z95.810 Presence of automatic (implantable) Ica Pacer Schedule cardiac defibrillator 08/15/2018 J84.10 Pulmonary fibrosis, unspecified Nba Gamboa M.D. 08/15/2018 I25.5 Ischemic cardiomyopathy Nba Gamboa M.D. 08/15/2018 I48.92 Unspecified atrial flutter Nba Gamboa M.D. 06/19/2018 J84.10 Pulmonary fibrosis, unspecified Ibis Nowak MD 06/19/2018 J98.4 Other disorders of lung Ibis Nowak MD Plan of Treatment Future Appointment(s):01/16/2019 3:30 pm - Nba Gamboa M.D. at [facility]12/03/2018 - Roxana Mejía MDK40.91 Unilateral inguinal hernia, without obstruction or gangrene, recurrentFollow up:Please feel free to follow- up as needed. Functional Status Description No Information Available Mental Status Description No Information Available Referrals Description No Information Available
--- OUTSIDE RECORDS SUMMARY | 2018-12-11 13:22 | XMS REPORT | Continuity of Care Document ---
:1950 External Reference #:[id number] Author Name Roxana Mejía MD (transmitted by agent of provider Charo Valente) Address [address], [place] [address] Care Team Providers Name Role Phone Surjit Berg M.D. - Family Medicine Care Team Information Fast Food Team Member Problems Active Problems Provider Date Conduction disorder [...] Metoprolol Succinate 1 tablet once 90tabs Arjun Ramon, ER daily DO FACC 25mg Tablets ER [...] 08/01/2013 Injection Technetium TC 99M Tetrofosmin, Nba Gamboa, M.D. 08/01/2013 Per Unit Dose Up To [...] Available Procedures Date Code Description Status 09/18/2018 69481 Diffusing Capacity Completed 09/18/2018 87595 Spirometry Incl Graphic Record Completed 09/11/2018 35417 EKG Tracing & Interpretation Completed 08/20/2018 24505 EKG, Interpretation Only Completed 08/20/2018 22308 Cardioversion Completed 08/15/2018 45983 Interrogation Implant Cardiovasc Monitor System Incl Completed Analysis Int 08/15/2018 25075 Interrogation Implant Cardiovasc Monitor System Incl Completed Analysis Int 08/15/2018 62878 Icd Eval With Inerative Adjustmt Dual Lead System Completed 08/15/2018 74652 Icd Eval With Inerative Adjustmt Dual Lead System Completed 06/19/2018 61799 Diffusing Capacity Completed 06/19/2018 17046 Spirometry Incl Graphic Record Completed 03/21/2014 44825245 Colonoscopy Completed Medical Devices Description No Information Available Encounters Type Date Location Provider Dx Diagnosis Office Visit 09/18/2018 Pulmonology And Ibis Nowak J84.10 Pulmonary 10:30a [facility] galindo, Machine Assembler Supervisor unspecified J98.4 Other disorders of lung Office Visit 09/11/2018 1:00p [facility] Nba Rivera I48.0 Paroxysmal [place] [facility] [place] [facility] [place] fibrillation I50.9 Heart failure, unspecified Z95.810 Presence of automatic (implantable) cardiac defibrillator I25.5 Ischemic cardiomyopathy 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 unspecified Z95.810 Presence of automatic (implantable) cardiac defibrillator J84.10 Pulmonary fibrosis, unspecified I25.5 Ischemic cardiomyopathy I48.92 Unspecified atrial flutter Office Visit 06/19/2018 12:00p Pulmonology And Ibis J98.4 Other disorders [facility] Eliu of lung [facility] Assessments Date Code Description Provider 09/18/2018 J84.10 Pulmonary fibrosis, unspecified Ibis Nowak MD 09/18/2018 J84.10 Pulmonary fibrosis, unspecified Ibis Nowak MD 09/18/2018 J98.4 Other disorders of lung Ibis Nowak MD 09/11/2018 I48.0 Paroxysmal atrial fibrillation Nba Gamboa M.D. 09/11/2018 I50.9 Heart failure, unspecified Nba Gamboa M.D. 09/11/2018 Z95.810 Presence of automatic (implantable) Nba Gamboa M.D. cardiac defibrillator 09/11/2018 I25.5 Ischemic cardiomyopathy Nba Gamboa M.D. 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 anticoagulants 09/11/2018 I25.10 Atherosclerotic heart disease of Nba Gamboa M.D. [place] coronary artery with 08/20/2018 R94.31 Abnormal electrocardiogram [...] 3:30 pm - Nba Gamboa M.D. at [facility] Functional Status Description No Information Available Mental Status Description No Information Available Referrals Description No Information Available
--- NOTE | 2018-12-11 15:48 | ED ---
Complex/Multi-Sys Presentation - HPI Summary HPI Summary: This patient is a 67 year old M [facility] accompanied by with a chief complaint of worsening fluid retention since three days ago. The last 3 mornings pt has doubled Lasix, he usually takes 40 mg and then took 80 mg. Pt was not in any distress, he just wanted to reduce swelling. Dr. Gamboa thought pt should come to the ED. Pt has PMHx of CHF, v tach. Patient denies SOB, CP. Pt takes Xarelto. Medications reviewed. Allergies noted - History Of Current Complaint Chief Complaint: EDGeneral Time Seen by Provider: 12/11/18 15:39 Hx Obtained From: Patient Onset/Duration: Gradual Onset, Lasting Days, Still Present Timing: Constant Severity Currently: None Aggravating Factor(s): Nothing Alleviating Factor(s): Nothing Associated Signs And Symptoms: Positive: Edema. Negative: SOB, Chest Pain - Allergies/Home Medications Allergies/Adverse Reactions: Allergies Allergy/AdvReac Type Severity Reaction Status Date / Time No Known Allergies Allergy Verified 12/11/18 13:11 Home Medications: Home Medications Rivaroxaban TAB(*) [Xarelto 20 mg] 20 mg PO DAILY 12/11/18 [History Confirmed ] PMH/Surg Hx/FS Hx/Imm Hx Endocrine/Hematology History: Reports: Hx Anticoagulant Therapy - PLAVIX, ASA, xeralto, Hx Thyroid Disease Denies: Hx Blood Disorders, Hx Blood Transfusions, Hx Bone Marrow Disease, Hx Diabetes, Hx Systemic Lupus Erythematosus, Hx Sickle Cell Disease, Hx Anemia , Hx Unexplained Bleeding, Other Endocrine/Hematological Disorders Cardiovascular History: Reports: Hx Aneurysm - popliteal s/p 1992, Hx Angina, Hx Angioplasty, Hx Auto Implanted Cardiovert Defib, Hx Cardiac Arrest, Hx Congestive Heart Failure, Hx Coronary Artery Disease, Hx Hypercholesterolemia, Hx Hypertension, Hx Myocardial Infarction, Hx Pacemaker/ICD, Hx Rheumatic Fever - as a child, Other Cardiovascular Problems/Disorders - CAD Denies: Hx Cardiomegaly, Hx Congenital Heart Disease, Hx Deep Vein Thrombosis , Hx Hypotension, Hx Peripheral Vascular Disease, Hx Syncope, Hx Valvular Heart Disease Respiratory History: Denies: Hx Asthma, Hx Chronic Obstructive Pulmonary Disease (COPD) GI History: Reports: Hx Hiatal Hernia History: Denies: Hx Chronic Renal Failure, Hx Renal Disease Sensory History: Reports: Hx Contacts or Glasses Denies: Hx Cataracts, Hx Eye Injury, Hx Eye Prosthesis, Hx Glaucoma, Hx Macular Degeneration, Hx Vision Problem, Hx Deafness, Hx Hearing Aid, Hx Hearing Problem, Other Sensory Impairments Opthamlomology History: Reports: Hx Contacts or Glasses Denies: Hx Cataracts, Hx Eye Injury, Hx Eye Prosthesis, Hx Glaucoma, Hx Macular Degeneration, Hx Vision Problem, Other Sensory Impairments Neurological History: Reports: Hx Headaches, Hx Transient Ischemic Attacks (TIA) Psychiatric History: Denies: Hx Autism - Surgical History Surgery Procedure, Year, and Place: s/p hernia repair x2, left knee REPAIR. THYROIDECTOMY. ICD [address] [facility]. CABG X 4 1991 W/STENTS, Hx Anesthesia Reactions: No - Immunization History Date of Tetanus Vaccine: unk Date of Influenza Vaccine: 01/08/15 Infectious Disease History: No Infectious Disease History: Denies: Traveled Outside the [place] in Last 30 Days - Family History Known Family History: Positive: Cardiac Disease, Other - Laryngeal CA Family History: Father of [place] at 52. Mother - laryngeal CA. - Social History Alcohol Use: None Alcohol Amount: 2 Drinks Hx Substance Use: No Substance Use Type: Reports: None Hx Tobacco Use: Yes - 4x a day Smoking Status (MU): Light Every Day Tobacco Smoker Type: Pipe Amount Used/How Often: about 3/16 ounce of pipe tabacco a day,tabacco pouch last about 5days Length of Time of Smoking/Using Tobacco: since 1966 Have You Smoked in the Last Year: Yes Review of Systems Negative: Chest Pain Negative: Shortness Of Breath Positive: Edema All Other Systems Reviewed And Are Negative: Yes Physical Exam - Summary Physical Exam Summary: Constitutional: Well-developed, Well-nourished, Alert. (-) Distressed Skin: Warm, Dry HENT: Normocephalic; Atraumatic Eyes: Conjunctiva normal Neck: Musculoskeletal ROM normal neck. (-) JVD, (-) Stridor, (-) Tracheal deviation Cardio: Rhythm regular, rate normal, Heart sounds normal; Intact distal pulses; The pedal pulses are 2+ and symmetric. Radial pulses are 2+ and symmetric. (-) Murmur Pulmonary/Chest wall: Effort normal. (-) Respiratory distress, (-) Wheezes, (-) Rales, No crackles bilat. Abd: Soft, (-) tenderness, (-) Distension, (-) Guarding, (-) Rebound Musculoskeletal: + Pitting Edema Bilat Lymph: (-) Cervical adenopathy Neuro: Alert, Oriented x3 Psych: Mood and affect Normal Triage Information Reviewed: Yes Vital Signs On Initial Exam: Initial Vitals Temp Pulse Resp BP Pulse Ox 98.2 F 52 14 114/60 96 12/11/18 13:06 12/11/18 13:06 12/11/18 13:06 12/11/18 13:06 12/11/18 13:06 Vital Signs Reviewed: Yes Diagnostics - Vital Signs Vital Signs Temp Pulse Resp BP Pulse Ox 12/11/18 14:58 97.9 F 49 20 122/63 94 12/11/18 13:06 98.2 F 52 14 114/60 96 - Laboratory Result Diagrams: 12/11/18 16:02 12/11/18 16:02 Lab Statement: Any lab studies that have been ordered have been reviewed, and results considered in the medical decision making process. - EKG 1627 Summary of EKG Findings: An EKG at 1627 reveals atrial paced rhythm at 50 bpm. Re-Evaluation - Re-Evaluation First Eval Re-Evaluation Time: 18:22 Comment: Discuss plan or care with pt. Complex Multi-Symp Course/Dx Course Of Treatment: Patient is here with worsening peripheral edema. Patient is satting well with no respiratory complaints. Patient had crackles on lung exam. Patient had an EKG which showed no evidence of arrhythmia. Patient had blood work performed which is grossly unremarkable. Patient's pacemaker was interrogated with no abnormalities noted. 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 - Diagnoses Provider Diagnoses: Fluid overload, Congestive heart failure (CHF) Discharge ED - Sign-Out/Discharge Documenting (check all that apply): Patient Departure - Discharge Patient Received Moderate/Deep Sedation with Procedure: No - Discharge Plan Condition: Stable Disposition: HOME Patient Education Materials: Heart Failure (ED) Referrals: Surjit Berg MD [Primary Care Provider] - Nba Gamboa MD [Medical Doctor] - As Soon As Possible Additional Instructions: Follow up with Dr. Gamboa as soon as possible. PLEASE RETURN TO EMERGENCY DEPARTMENT FOR ANY NEW OR WORSENING SYMPTOMS - Billing Disposition and Condition Condition: STABLE Disposition: Home - Attestation Statements Document Initiated by Scribe: Yes Documenting Scribe: Yasmin Rodarte Provider For Whom Romibgabriel is Documenting (Include Credential): Jean Paul Casarez MD Scribe Attestation: Yasmin Eddy, scribed for Jean Paul Casarez MD on 12/11/18 at 2055. Scribe Documentation Reviewed: Yes Provider Attestation: The documentation as recorded by the Yasmin tavera accurately reflects the service I personally performed and the decisions made by me, Jean Paul Casarez MD Status of Scribe Document: Viewed
[2018-12-11 16:17] LABS: ABS Basophils 0.1 10^3/ul (0-0.2); ABS Eosinophils 0.1 10^3/ul (0-0.6); ABS Lymphocytes 1.2 10^3/ul (1.0-4.8); ABS Monocytes 0.6 10^3/ul (0-0.8); ABS Neutrophils 5.4 10^3/ul (1.5-7.7); Hematocrit 36 % (42-52); Lymphocyte % 15.7 %; Mean Corpuscular HGB Conc 34 g/dL (31-36); Mean Corpuscular Hemoglobin 31 pg (27-31); Mean Corpuscular Volume 92 fL (80-94); Mean Platelet Volume 8.8 fL (7.4-10.4); Platelet Count 281 10^3/uL (150-450); Red Blood Count 3.87 10^6 /uL (4.18-5.48); Red Cell Distribution Width 18 % (10-15); White Blood Count 7.4 10^3/uL (3.5-10.8)
[2018-12-11 16:20] LABS: Albumin 4.1 g/dL (3.2-5.2); Calcium 9.3 mg/dL (8.6-10.3); Potassium 3.8 mmol/L (3.5-5.0); Total Bilirubin 0.8 mg/dL (0.2-1.0)
[2018-12-11 16:26] LABS: Albumin/Globulin Ratio 1.2 (1-3); BUN/Creatinine Ratio 21.3 (8-20); EGFR African American 71.3 (>60); EGFR Non-African American 58.9 (>60); Globulin 3.4 g/dL (2-4); Total Protein 7.5 g/dL (6.4-8.9)
[2018-12-11 17:00] LABS: Urine Appearance Clear; Urine Bilirubin Negative (Negative); Urine Blood Negative (Negative); Urine Color Straw; Urine Glucose Negative (Negative); Urine Ketones Negative (Negative); Urine Nitrite Negative (Negative); Urine Protein Negative (Negative); Urine Specific Gravity 1.009 (1.010-1.030); Urine Urobilinogen Negative (Negative)
[2018-12-11 17:02] LABS: TSH (Thyroid Stimulating Horm) 3.8 mcIU/mL (0.34-5.60)
[2018-12-11 17:03] LABS: Free T4 1.39 ng/dL (0.61-1.12)
[2018-12-11 18:19] VITALS: BP 133/65
== END 2018-12-11 18:28 | disposition home or self-care (01) ==
LOC: ED 12:54
DX: I50.9 Heart failure, unspecified (principal); E87.70 Fluid overload, unspecified; I10 Essential (primary) hypertension; Z79.01 Long term (current) use of anticoagulants; Z79.82 Long term (current) use of aspirin; Z86.73 Personal history of transient ischemic attack (TIA), and cerebral infarction without residual deficits; Z95.810 Presence of automatic (implantable) cardiac defibrillator; Z95.1 Presence of aortocoronary bypass graft; Z95.5 Presence of coronary angioplasty implant and graft; F17.290 Nicotine dependence, other tobacco product, uncomplicated
CPT/HCPCS: 36415; 80053; 81003; 83735; 83880; 84439; 84443; 85025; 93005; 99283

== ENCOUNTER 2019-02-01 05:29 | Emergency (ER) | payer MEDICARE, BC ==
--- OUTSIDE RECORDS SUMMARY | 2019-02-01 05:37 | XMS REPORT | Continuity of Care Document ---
:1950 External Reference #:[id number] Author Name Nba Gamboa M.D. (transmitted by agent of provider Azalia Dunbar) Address [address] [place] [address] Care Team Providers Name Role Phone Surjit Berg M.D. - Family Medicine Care Team Information Boring Machine Operator Production Problems Active Problems Provider Date Conduction disorder [...] once 90tabs Arjun Ramon, ER daily DO [facility] 25mg Tablets ER 24HR Aspirin 1 by [...] Gamboa M.D. 08/01/2013 Injection Technetium TC 99M TetrofosminNba M.D. 08/01/2013 Per Unit Dose Up To [...] Available Procedures Date Code Description Status 09/18/2018 62167 Diffusing Capacity Completed 09/18/2018 30545 Spirometry Incl Graphic Record Completed 09/11/2018 65336 EKG Tracing & Interpretation Completed 08/20/2018 82680 EKG, Interpretation Only Completed 08/20/2018 22520 Cardioversion Completed 08/15/2018 08091 Interrogation Implant Cardiovasc Monitor System Incl Completed Analysis Int 08/15/2018 17545 Interrogation Implant Cardiovasc Monitor System Incl Completed Analysis Int 08/15/2018 54782 Icd Eval With Inerative Adjustmt Dual Lead System Completed 08/15/2018 09733 Icd Eval With Inerative Adjustmt Dual Lead System Completed 06/19/2018 73538 Diffusing Capacity Completed 06/19/2018 79485 Spirometry Incl Graphic Record Completed 03/21/2014 05167627 Colonoscopy Completed Medical Devices Description No Information Available Encounters Type Date Location Provider Dx Diagnosis Office Visit 12/03/2018 [facility] Roxana Mejía MD K40.91 Unilateral 2:00p Of Digital Imager inguinal hernia, w/o obst or gangrene, recurrent Office Visit 09/18/2018 [facility], J84.10 Pulmonary 10:30a [facility] MD galindo [facility] unspecified J98.4 Other disorders of lung Office Visit 09/11/2018 1:00p [facility] Nba Rivera I48.0 Paroxysmal atrial Of [facility] [place] [facility] [place] Gamboa fibrillation I50.9 Heart failure, unspecified Z95.810 Presence of automatic (implantable) cardiac defibrillator I25.5 Ischemic cardiomyopathy 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 unspecified Z95.810 Presence of automatic (implantable) cardiac defibrillator J84.10 Pulmonary fibrosis, unspecified I25.5 Ischemic cardiomyopathy I48.92 Unspecified atrial flutter Office Visit 06/19/2018 12:00p [facility] J98.4 Other disorders [facility] Eliu of lung [facility] Assessments Date Code Description Provider 12/03/2018 K40.91 [...] Ischemic cardiomyopathy Nba Gamboa M.D. 09/11/2018 Z79.01 skilled nursing (current) use of Nba Gamboa M.D. anticoagulants 09/11/2018 I25.10 Atherosclerotic heart disease of Nba Gamboa M.D. pa[place] coronary artery with 08/20/2018 R94.31 Abnormal electrocardiogram [ECG] [EKG] Qugil Valente M.D. 08/20/2018 I48.0 Paroxysmal atrial fibrillation [...] 3:30 pm - Nba Gamboa M.D. at [facility]/03/2018 - Roxana Mejía MDK40.91 Unilateral inguinal hernia, without obstruction or gangrene, recurrentFollow up:Please feel free to follow- up as needed. Functional Status Description No Information Available Mental Status Description No Information Available Referrals Description No Information Available
--- NOTE | 2019-02-01 05:41 | ED ---
HPI Chest Pain - HPI Summary HPI Summary: This pt is a 68 Y/O M with extensive cardiac history including pacemaker, coronary artery disease, multiple stents [facility] with a CC of palpitations and chest pain that started at 0400. He states that the R arm was hurting first but is a common sign when he has arrhythmias. He has a PMHx of CAD and has had 2 ablations in the past for tachyarrhythmia. He states that he took 3 sublingual Nitro and one Nitro patch and EMS gave Metoprolol AEMT in an ambulance. He states that he has a defibrillator, a Hx of heart failure, and states that he had to have a bypass in 1991. He states that usually when these symptoms present themselves he has to be cardioverted. He has no aggravating or alleviating factors. n arrival to ED, patient's heart rate in the 90s. Per review of strip from EMS, patient had HR in the 120s to 160s, wide complex. per ROR: Most recent echo EF 30-35%. Mot recent cath at [facility] in 2015. Hx stents placed in 2015, 2013, 2011, 1999. Hx cardioversions in past. - History of Current Complaint Time Seen by Provider: 02/01/19 05:36 Hx Obtained From: Patient Onset/Duration: Started Hours Ago - 1 Time of Onset: 04:00 Timing: Constant Initial Severity: Moderate Current Severity: Moderate Pain Scale Used: 0-10 Numeric Chest Pain Location: Left Anterior Chest Pain Radiates: Yes Chest Pain Radiates To:: Arm - R Aggravating Factor(s): Nothing Alleviating Factor(s): Nothing Associated Signs and Symptoms: Positive: Chest Pain, Other: - R arm pain. Negative: Headaches, Shortness of Breath, Fever, Chills, Diaphoresis, Nausea, Vomiting - Additional Pertinent History Primary Care Physician: [id number] - Allergy/Home Medications Allergies/Adverse Reactions: Allergies Allergy/AdvReac Type Severity Reaction Status Date / Time No Known Allergies Allergy Verified 12/11/18 13:11 PMH/Surg Hx/FS Hx/Imm Hx Previously Healthy: Yes Endocrine/Hematology History: Reports: Hx Anticoagulant Therapy - PLAVIX, ASA, xeralto, Hx Thyroid Disease Denies: Hx Blood Disorders, Hx Blood Transfusions, Hx Bone Marrow Disease, Hx Diabetes, Hx Systemic Lupus Erythematosus, Hx Sickle Cell Disease, Hx Anemia , Hx Unexplained Bleeding, Other Endocrine/Hematological Disorders Cardiovascular History: Reports: Hx Aneurysm - popliteal s/p 1992, Hx Angina, Hx Angioplasty, Hx Auto Implanted Cardiovert Defib, Hx Cardiac Arrest, Hx Congestive Heart Failure, Hx Coronary Artery Disease, Hx Hypercholesterolemia, Hx Hypertension, Hx Myocardial Infarction, Hx Pacemaker/ICD, Hx Rheumatic Fever - as a child, Other Cardiovascular Problems/Disorders - CAD Denies: Hx Cardiomegaly, Hx Congenital Heart Disease, Hx Deep Vein Thrombosis , Hx Hypotension, Hx Peripheral Vascular Disease, Hx Syncope, Hx Valvular Heart Disease Respiratory History: Denies: Hx Asthma, Hx Chronic Obstructive Pulmonary Disease (COPD) GI History: Reports: Hx Hiatal Hernia History: Denies: Hx Chronic Renal Failure, Hx Renal Disease Sensory History: Reports: Hx Contacts or Glasses Denies: Hx Cataracts, Hx Eye Injury, Hx Eye Prosthesis, Hx Glaucoma, Hx Macular Degeneration, Hx Vision Problem, Hx Deafness, Hx Hearing Aid, Hx Hearing Problem, Other Sensory Impairments Opthamlomology History: Reports: Hx Contacts or Glasses Denies: Hx Cataracts, Hx Eye Injury, Hx Eye Prosthesis, Hx Glaucoma, Hx Macular Degeneration, Hx Vision Problem, Other Sensory Impairments Neurological History: Reports: Hx Headaches, Hx Transient Ischemic Attacks (TIA) Psychiatric History: Denies: Hx Autism - Surgical History Surgery Procedure, Year, and Place: s/p hernia repair x2, left knee REPAIR. THYROIDECTOMY. ICD [address] [facility]. CABG X 4 1991 W/STENTS, Hx Anesthesia Reactions: No - Immunization History Date of Tetanus Vaccine: unk Date of Influenza Vaccine: 01/08/15 Infectious Disease History: Denies: Traveled Outside the [place] in Last 30 Days - Family History Known Family History: Positive: Cardiac Disease, Other - Laryngeal CA Family History: Father of [place] at 52. Mother - laryngeal CA. - Social History Occupation: Retired Lives: Alone Alcohol Use: Rare Alcohol Amount: 2 Drinks Hx Substance Use: No Substance Use Type: Reports: None Hx Tobacco Use: Yes - 4x a day Smoking Status (MU): Light Every Day Tobacco Smoker Type: Pipe Amount Used/How Often: about 3/16 ounce of pipe tabacco a day,tabacco pouch last about 5days Length of Time of Smoking/Using Tobacco: since 1966 Have You Smoked in the Last Year: Yes Review of Systems Negative: Fever, Chills, Skin Diaphoresis Positive: Chest Pain - L anterior Negative: Shortness Of Breath Negative: Vomiting, Nausea Negative: Headache All Other Systems Reviewed And Are Negative: Yes Physical Exam - Summary Physical Exam Summary: Constitutional: elderly male NAD Skin: Warm, Dry HENT: Normocephalic; Atraumatic Eyes: Conjunctiva normal Neck: Musculoskeletal ROM normal neck. (-) JVD, (-) Stridor, (-) Nuchal rigidity Cardio: Rhythm irregular, rate normal, Heart sounds normal; Intact distal pulses ; Radial pulses are 2+ and symmetric. Pulmonary/Chest wall: Effort normal. (-) Respiratory distress, (-) Wheezes, (-) Rales, old midline scar and defibrillator site to R chest wall. Abd: Soft, (-) tenderness, (-) Distension, (-) Guarding, (-) Rebound Musculoskeletal: (-) Edema Lymph: (-) Cervical adenopathy Neuro: Alert, Oriented x3 Psych: Mood and affect Normal Triage Information Reviewed: Yes Vital Signs Reviewed: Yes Procedures - Sedation Patient Received Moderate/Deep Sedation with Procedure: No Diagnostics - Laboratory Result Diagrams: 02/01/19 05:53 02/01/19 05:53 Lab Statement: Any lab studies that have been ordered have been reviewed, and results considered in the medical decision making process. - Radiology CXR Radiology Interpretation Completed By: ED Physician Summary of Radiographic Findings: Cardiomegaly and Pacemaker in the R chest. Pending offical review. - EKG 0527 Cardiac Rate: NL - 96 BPM Summary of EKG Findings: EKG at 0527 shows a junctional rhythm at 96 BPM. Re-Evaluation - Re-Evaluation First Eval Comment: Updated patient on plan for admission, cardiology consult and device interrogation. Per device rep no obvious arrythmias although appears to be tachycardic on my review of strip. Patient's anginal symptoms somewhat improved. Chest Pain Course/Dx - Course Course Of Treatment: 68 y/o male w extensive cardiac hx including CABG, stents, pacemaker pw CP and. - tachycardic to 120's on review of EMS strip. S/p metoprolol for presumed aflutter? - angina likely 2/2 tachyarrhythmia. No obvious new changes in EKG. Chest x-ray unremarkable aside from cardiomegaly. - EKG w junctional rhythm, wide appears similar to prior in past. Trop elevated to 0.06. - admit to medicine for cardiology consult. Got pacemaker interrogation. - Diagnoses Provider Diagnoses: Chest pain - Provider Notifications Discussed Care Of Patient With: Liliana Bonilla Time Discussed With Above Provider: 06:42 Instructed by Provider To: Admit As Inpatient Admit/Transition Orders Completed By ED Provider: Yes - Critical Care Time Critical Care Time: 30-74 min - Upon my evaluation, this patient had a high probability of imminent or life-threatening deterioration due to cardiac arrhythmia, which required my direct attention, intervention, and personal management. I have personally provided 30 minutes of critical care time exclusive of time spent on separately billable procedures. Time includes review of laboratory data, radiology results, discussion with consultants, and monitoring for potential decompensation. Interventions were performed as documented above. Discharge ED - Sign-Out/Discharge Documenting (check all that apply): Patient Departure - admitted - Discharge Plan Condition: Stable Disposition: HOME - Billing Disposition and Condition Condition: STABLE Disposition: Home - Attestation Statements Document Initiated by Scribe: Yes Documenting Scribe: Elvin Huynh Provider For Whom Romibe is Documenting (Include Credential): Guillermo Blackwell MD Scribe Attestation: I, Elvin Huynh, scribed for Guillermo Blackwell MD on 02/02/19 at 1025. Scribe Documentation Reviewed: Yes Provider Attestation: The documentation as recorded by the scribeElvin accurately reflects the service I personally performed and the decisions made by me, Guillermo Blackwell MD Status of Scribe Document: Viewed
[2019-02-01 06:00] LABS: ABS Basophils 0.1 10^3/ul (0-0.2); ABS Eosinophils 0.3 10^3/ul (0-0.6); ABS Lymphocytes 1.2 10^3/ul (1.0-4.8); ABS Monocytes 0.6 10^3/ul (0-0.8); ABS Neutrophils 3.8 10^3/ul (1.5-7.7); Eosinophil % 5.6 %; Hematocrit 37 % (42-52); Mean Corpuscular HGB Conc 33 g/dL (31-36); Mean Corpuscular Hemoglobin 30 pg (27-31); Mean Corpuscular Volume 90 fL (80-94); Platelet Count 345 10^3/uL (150-450); Red Blood Count 4.07 10^6 /uL (4.18-5.48); Red Cell Distribution Width 17 % (10-15)
[2019-02-01 06:16] LABS: ALT 13 U/L (7-52); AST 20 U/L (13-39); Albumin 3.7 g/dL (3.2-5.2); Albumin/Globulin Ratio 1.2 (1-3); Alkaline Phosphatase 134 U/L (34-104); Anion Gap 5 mmol/L (2-11); BUN/Creatinine Ratio 16.7 (8-20); Blood Urea Nitrogen 20 mg/dL (6-24); CO2 Carbon Dioxide 27 mmol/L (22-32); Calcium 8.8 mg/dL (8.6-10.3); Chloride 107 mmol/L (101-111); EGFR African American 72.4 (>60); EGFR Non-African American 59.9 (>60); Globulin 3.2 g/dL (2-4); Glucose 116 mg/dL (70-100); Potassium 3.8 mmol/L (3.5-5.0); Sodium 139 mmol/L (135-145); Total Protein 6.9 g/dL (6.4-8.9)
[2019-02-01 06:20] LABS: Troponin I 0.07 ng/mL (<0.04)
[2019-02-01] MEDS ORDERED: Acetaminophen TAB* 325 MG PO PRN (10:02)
[2019-02-01] MEDS ORDERED: Docusate CAP* 100 MG PO PRN (10:07)
[2019-02-01] MEDS ORDERED: amLODIPine TAB* 5 MG PO SCH (11:00)
[2019-02-01] MEDS ORDERED: Folic Acid TAB* 1 MG PO SCH (11:00)
[2019-02-01] MEDS ORDERED: Amiodarone TAB* 200 MG PO SCH (11:00)
[2019-02-01] MEDS ORDERED: Metoprolol Succinate XL TAB* 25 MG PO SCH (11:00)
[2019-02-01] MEDS ORDERED: Furosemide TAB* 40 MG PO SCH (11:00)
[2019-02-01] MEDS ORDERED: Clopidogrel TAB* 75 MG PO SCH (11:00)
[2019-02-01] MEDS ORDERED: Aspirin EC TAB* 81 MG TAB.EC PO SCH (11:00)
[2019-02-01] MEDS ORDERED: POTASSIUM CITRATE 10 MEQ PO SCH (11:00)
[2019-02-01] MEDS ORDERED: Rivaroxaban TAB(*) 20 MG TAB PO SCH (11:00)
[2019-02-01] MEDS ORDERED: Levothyroxine TAB* 100 MCG TAB PO SCH (11:00)
--- NOTE | 2019-02-01 11:07 | PROCNOTE ---
Cardiology Procedure Note Dual chamber pacemaker [facility] interrogation and reprogramming of a dual chamber pacemaker/ICD Patient had symptomatic arrhythmia this AM. Was below detection threshold. Manual transmission of event, telemetry and EKG show atrial tachycardia or flutter at 120 bpm with pacemaker wenkebach nonconducted every 4th beat. It resolved spontaneously with resolution of symptoms. Patient sinus rate is never > 100 bpm on device interrogation AT/AF Mode switch rate was decreased from 180 to 110 bpm Max track rate decreased from 110 to 90 bpm Recommended doubling toprol dose from 25 to 50 mg po daily
--- NOTE | 2019-02-01 11:32 | CONSULT ---
Subjective Date of Service: 02/01/19 Interval History: ER Location PCP Dr. Berg Gun Fertilizer: Dr. Gamboa CC: Angina (Right arm discomfort) Reason for consult: atrial tachycardia vs. flutter HPI Ron Armstrong is a 68 year old man with a history as below. Early this morning he developed right arm pain which is his angina symptoms and typically accompanies arrhythmias. EKG, telemetry and manual device interrogation showed 1:1 atrial tachycardia vs. flutter at 120 bpm with pacemaker wenkebach every 4th beat. Detection thresholds were changed (see separate report). The arrhythmia resolved spontaneously at just before 6 PM and his symptoms resolved at that time. A troponin is detectable as would be expected given his known underlying CAD. He is currently asymptomatic. He has had no recent change in breathing, bleeding major, melena or syncope. Allergies: No Known Drug Allergy 01/18/13 allergy list reviewed on PMH: Congestive Heart Failure (CHF) Hyperthyroidism Ischemic cardiomyopathy Coronary Artery Disease (CAD) Atrial Fibrillation Ventricular Tachycardia Atrial flutter Obesity Hypertension Surgical Hx: ICD Coronary Artery Bypass Graft (CABG) - (03/16/1992) RODRIGUEZ to the LAD, SVG to D1 then OM2, SVG to PDA Multiple cardioversions Ablation Atrial Flutter - (03/22/2017) Cryo ablation Flutter Dr Lira [facility] Ablation Atrial Flutter - (01/31/2018) A flutter ablation [facility] Dr Lira Knee Surgery - Left Inguinal hernia repair - - left X 2 Tonsillectomy, [place] Teeth Removal FH: Father had diabetes and heart disease, Mother had cancer and high b/p. Father: Heart Disease, Diabetes Type II, Hypertension. due to Heart Disease. Mother: Cancer. due to Cancer. Siblings:3 - 1 and 2 living. SH: Marital: .Lives With: Spouse - Batsheva .Occupation: Part- time selling auto parts. Personal Habits: Smoking: Patient is a current smoker, smokes every day - pipe , 2-4 times per day.Alcohol: consumes 4-5 beers per week.Drug Use: Denies Drug Use.Daily Caffeine: Consumes on average 1 cup of regular coffee per day.Exercise Type: Exercises regularly - walking daily. Medications Home Medications: Clopidogrel TAB* [Plavix TAB*] 75 mg PO DAILY 08/08/12 [History Confirmed ] Ranitidine TAB (NF) [Zantac TAB (NF)] 1 tab PO DAILY 08/08/12 [History Confirmed 02/01/19] Furosemide TAB* [Lasix TAB*] 40 mg PO DAILY 09/19/12 [History Confirmed 02/01/19 ] Levothyroxine TAB* [Synthroid 100 MCG TAB*] 200 mcg PO DAILY 02/14/16 [History Confirmed 02/01/19] Aspirin EC TAB* [Ecotrin EC Low Dose 81 MG*] 81 mg PO DAILY 02/03/17 [History Confirmed 02/01/19] Amiodarone TAB* [Cordarone Tab*] 300 mg PO DAILY 05/26/17 [History Confirmed ] Folic Acid TAB* [Folvite TAB*] 1 mg PO DAILY 05/26/17 [History Confirmed ] Metoprolol Succinate XL TAB* [Toprol XL TAB*] 25 mg PO DAILY 05/26/17 [History Confirmed 02/01/19] Pravastatin (NF) [Pravachol (NF)] 80 mg PO BEDTIME 05/26/17 [History Confirmed 02/01/19] Amlodipine Besylate [Norvasc] 5 mg PO DAILY 10/31/17 [History Confirmed 02/01/19 ] Potassium Citrate [Urocit-K] 20 meq PO DAILY 12/05/17 [History Confirmed ] Docusate CAP* [Colace Cap*] 100 mg PO DAILY PRN 03/02/18 [History Confirmed ] Rivaroxaban TAB(*) [Xarelto 20 mg] 20 mg PO DAILY 12/11/18 [History Confirmed ] Review of Systems - Measurements Intake and Output: Intake and Output Last 24 Hours 01/30/19 01/31/19 02/01/19 02/02/19 06:59 06:59 06:59 06:59 Weight 276 lb - Review of Systems Constitutional Symptoms: Negative: Weight Gain, Weight Loss, Weakness, Fever, Night Sweats Dermatology: Negative: Rash, Skin Lumps HEENT: Negative: Change in Hearing, Vertigo Eyes: Negative: Change in Vision, Double Vision Thyroid: Negative: Cold Intolerance, Heat Intolerance Pulmonary: Positive: Shortness of Breath, Exercise Intolerance Negative: Cough, Sputum, Hemoptysis, Wheezing, Asthma, Home Oxygen Cardiology: Positive: Shortness of Breath Negative: Faintness, Syncope, Claudication Gastroenterology: Negative: Blood in Stools, Haematemesis, Melena Genital - Urinary: Negative: Dysuria, Hematuria Musculoskeletal: Negative: Joint Pain, Joint Stiffness Endocrinology: Positive: Obesity Negative: Polydipsia, Polyuria Hematologic/Lymphatic: Positive: Use of Antiplatelet Drugs Negative: Use of Anticoagulant Neurology: Negative: Change in Speech, Change in Sphincter Function, Change in Walking Psychiatry: Negative: Unusual Anxiety, Suicidal Ideation, Hypomania Allergic/Immunologic: Negative: Hx HIV, Immunocompromise Review of Systems Statement: All other review of systems negative, unless stated above. Objective Vital Signs: Temp Pulse Resp BP Pulse Ox 97.5 F 51 9 119/73 95 02/01/19 05:33 02/01/19 10:06 02/01/19 10:06 02/01/19 10:06 02/01/19 10:06 Appearance: obese, nad Ears/Nose/Mouth/Throat: Clear Oropharnyx, Mucous Membranes Moist Neck: NL Appearance and Movements; NL JVP, Trachea Midline Respiratory: Symmetrical Chest Expansion and Respiratory Effort, Clear to Auscultation Cardiovascular: RRR, - - distant, icd pocket intact Abdominal: - - soft obese Extremities: - - warm, well perfused, mild edema Skin: No Rash or Ulcers Neurological: Alert and Oriented x 3 Laboratory Results: 02/01/19 05:53 02/01/19 05:53 Total Bilirubin 0.60 mg/dL (0.2-1.0) 02/01/19 05:53 AST 20 U/L (13-39) 02/01/19 05:53 ALT 13 U/L (7-52) 02/01/19 05:53 Alkaline Phosphatase 134 U/L (34-104) H 02/01/19 05:53 Total Protein 6.9 g/dL (6.4-8.9) 02/01/19 05:53 Albumin 3.7 g/dL (3.2-5.2) 02/01/19 05:53 Globulin 3.2 g/dL (2-4) 02/01/19 05:53 Albumin/Globulin Ratio 1.2 (1-3) 02/01/19 05:53 02/01/19 05:53 Troponin I 0.07 H* Diagnostic Imaging: Cardiac Testing: Echocardiogram - (05/26/2017) study technically difficult, and limited due to poor acoustic windows. mild concentric LVH. evidence of ischemic cardiomyopapthy. global hypokinesis of LV w /minor regional variation. EF 30-35%. endocardium not well visualized. septal and apical hypokinesis. abnormal ventricular septal wall motion consistent w/ RV pacemaker. assessment of diastolic function non-diagnostic. LA mild to moderately dilated. pacemaker wire visualized in RA and RV. mild to moderate MR. mild to moderate TR. evidence of pulmonary HTN. T E E - (05/30/2017) global hypokineses of LV w/ minor regional variation. EF 30-35%. no thrombus visualized in LA appendage. pacemaker wire visualized in RV, no evidence of vegetation. patent foramen ovale not demonstrated by color doppler. no evidence of AR. no aortic vegetation present. moderate to severe MR. no vegetation noted on mitral vavle. mild to moderate TR. no vegetation observed on tricuspid valve. no significant pericardial effusion. Stress Test - (12/13/2016) [facility] Vascular Successful maximal cardiopulmonary exercise testing. Severe reduced exercise capacity. No prior testing. Stress Test - (02/16/2016) [facility] Radiology Report: Fixed perfusion defect involving the apex with extension to the anterior posterior myocardium. Since the previous myocardial scan dated November there has been worsening perfusion involving the lateral myocardium as well. This appearance is also fixed with little change in uptake on the rest and stress views. The stress ejection fraction is measured at 32%, a reduction from 43% on the previous scan. Assessment: High risk. Cardiac Procedures: Cardiac Catheterization - (03/07/2016) [facility] Moderate ostial restenosis, couldn't be stented d/t inability to engage ostium of the graft. Cardiac Catheterization - (05/04/2015) [facility] LM: Normal LAD: Occluded after S1 LCx: moderate vessel mild plaque RCA: occluded mid vessel Bridging collateral to distal PL branch. RODRIGUEZ to LAD: patent L to R collaterals from LAD to RCA. SVg to RCA: known occluded. SVG to OM: prox stent with 90% in-stent restenosis ostial graft stenosis of 80% STENT: ostial 3.5 X 16 Promus TOREY in-stent 3.5 X 20 mm Promus TOREY Cardiac Catheterization - (05/20/2011) [facility] in [place], Stent 2.5 X 12 Promus TOREY to distal SVG to the OM2 after the touch down to D1 Cardioversion - (10/22/2012) to NSR Cardiac Catheterization - (02/2000) LAD occluded, OM2 occluded, LCx: mild disease, RCA: Occluded mid, RODRIGUEZ to LAD patent, SVG to RCA occluded, SVG to D1/OM2 Mid 95%. Stent placed to SVG 2 Tristar stents Cardiac Catheterization - (05/16/2011) LAD occluded, RCA occluded, LCx: mild disease, OM occluded, RODRIGUEZ to LAD patent, SVG to RCA not injected known to be occluded, SVG to D1/OM2 patent to D1 then 90% stenosis to in graft before OM2 anastimosis ICD Implantation - (12/11/2012) RV-ICD malfunction. Explant [employer] 2207 ICD, RV /ICD lead, Atrial Lead. Implant RV lead Medtronic 6935, RA lead 4076, ICD [employer] [id number] Cardiac Catheterization - (05/23/2013) [facility] LM: prox 30 %, LAD: Occluded LCx: mid 30% OM1: occluded OM2: prox 30%, RCA : prox 90% Mid occluded(L to R collaterals), RODRIGUEZ to LAD: patent, SVG to RCA : Occluded, SVG to OM1: prox 30% Mid 90%, Stent in distal AVG patent. STENT: to mid SVG 3.5 X 12 mm Resolute Exam Date: 02/01/19 0 IMPRESSION: CARDIOMEGALY WITH PULMONARY INTERSTITIAL EDEMA. EKG Data: ekg repeat: AP-VS 50 bpm, ivcd/old anterior/anterolateral KS Assessment/Plan Patient had a slow symptomatic atrial tachycardia/flutter that is now resolved. He has no evidence of ACS or grossly decompensated heart failure Detection thresholds were decreased to get a better idea of what his arrhythmia burden has been although this episode was very symptomatic and unlikely he is having a lot. Would double toprol to 50 mg po daily Patient can be discharged from a cardiac standpoint
[2019-02-01 12:44] VITALS: BP 118/72
--- NOTE | 2019-02-01 15:20 | CONS ---
CC: Dr. Gamboa; Dr. Arjun Ramon; Dr. Surjit Berg CONSULTATION REPORT: DATE OF CONSULT: 02/01/19 PRIMARY CARE PROVIDER: Dr. Surjit Berg. REQUESTING PHYSICIAN: ER attending, CONSULTING PHYSICIAN: Dr. Collado. HISTORY OF PRESENT ILLNESS: This is a 68-year-old male who was initially admitted to the medical service at the request from the ER staff for atypical chest pain involving his right arm, then later was seen by lozenge dough mixer Dr. Arjun Ramon who recommended the patient be released/discharged home after his evaluation with recommendation which will be outlined below and he ended up being discharged home. In summary, this is a 68-year-old male with known cardiac medical history significant for coronary artery disease, status post ablation, last one was in January 2018; AICD with permanent pacemaker [employer]; CABG in 1991; CHF with EF 35%, systolic; cardioversion last in August 2018, follows with Dr. Nba Gamboa, came into the emergency room after he woke up this morning with right-sided arm pain 8/10, did not go away after he took 3 nitroglycerin and 1 nitro paste and given his previous symptomatology which he knows when he has some cardiac arrhythmia that required cardioversion, his symptoms are usually right arm pain. Given his symptomatology and the lack of improvement with nitroglycerin, he came into the ER to be evaluated. In the emergency room, he had an EKG which was consistent with ventricular pacing, and troponin of 0.07. Given his cardiac history, medicine service was called to evaluate and admit the patient. The patient was seen and evaluated by me and history was obtained as above. During my evaluation, the patient denies any pain. He states that his symptoms improved after they gave him IV metoprolol and 4 baby aspirin. His pain initially was 8/10, it intensified up to 10, then it released down to 3 en route to the emergency room and when he arrived to the ER, his pain was 0. He denies any nausea, vomiting, chills, diarrhea, shortness of breath, or retrosternal chest pain. No jaw pain. PAST MEDICAL HISTORY: 1. Coronary artery disease, status post 2 ablations. 2. AICD, status post permanent pacemaker. 3. CABG in 1991. 4. CHF, EF 35%. 5. Hypothyroidism. 6. Hyperlipidemia. 7. Hypertension. 8. VT. 9. History of coronary artery disease and acute coronary syndrome in the past. 10. History of rheumatic fever as a child. PAST SURGICAL HISTORY: 1. Hernia repair x2. 2. Left knee surgery. 3. Thyroidectomy. MEDICATIONS: 1. Lasix 40 daily. 2. Folic acid 1 mg daily. 3. Colace 100 daily. 4. Plavix 75 daily. 5. Aspirin 81 daily. 6. Amlodipine 5 daily. 7. Amiodarone 300 mg daily. 8. Ranitidine once a day. 9. Pravachol 80 mg at bedtime. 10. Potassium 20 mEq daily. 11. Toprol-XL 25 daily. 12. Levothyroxine 200 mcg daily. 13. Xarelto 20 daily. ALLERGIES: No known drug allergies. FAMILY HISTORY: Father has history of coronary artery disease and diabetes. Mother had history of cancer and hypertension. SOCIAL HISTORY: He still actively smokes pipes. He drinks about 4 to 5 drinks a week. Retired and . REVIEW OF SYSTEMS: As per HPI. PHYSICAL EXAM: Vital Signs: His blood pressure 114/51, pulse is 50, temperature 97, respiratory rate 14, satting 94%. General: He is awake, alert , oriented, in no apparent distress. Head and Neck: Normocephalic, atraumatic. Supple. No JVD. Lungs: Clear to auscultation. No rhonchi. Diminished at the bases, mainly in the right. Cardiovascular: S1, S2. Bradycardic. I do not appreciate any murmur. Abdomen: Obese. Positive bowel sounds. Soft. Extremities: +1 edema bilaterally. CASE MANAGEMENT ASSOCIATE: There is no motor or focal sensory deficit. Genitalia and Rectal Exam: Deferred. DIAGNOSTIC STUDIES/LAB DATA: CBC: White count 6.0, hemoglobin 12, hematocrit 37, platelets 345. Chemistry: Sodium 139, potassium 3.8, BUN 20, creatinine 1.2, glucose 116. AST 20, ALT 13. Troponin 0.07. Chest x-ray shows cardiomegaly with some pulmonary edema. No changes when compared to prior chest x-ray. EKG is V-paced at 96 beats per minute. Pacemaker interrogation deferred to the review of his lozenge dough mixer, Dr. Arjun Ramon, who saw and evaluated the interrogation, which shows 1:1 atrial tachycardia versus flutter at 120 beats per minute with pacemaker Wenckebach every 4th beat. He reprogrammed the detection threshold. IMPRESSION AND PLAN: This is a 68-year-old male who was seen and evaluated in the emergency room. Medicine service was called to evaluate and admit the patient. I did consult with Dr. Ramon, who kindly saw and evaluated the patient and recommended to increase the metoprolol from 25 up to 50 mg daily. He did the reprogramming of the pacer and the device by changing the threshold, please refer to Dr. Arjun Ramon for further details, and recommended to increase metoprolol to 50 and to be able to be discharged and follow up with Dr. Gamboa. The above was relayed to the ER attending and Dr. Glasgow was kind enough to discharge the patient with recommendation to follow up with Dr. Gamboa. [id number]/CPS #: [id number] MTDD
[2019-02-01] MEDS ORDERED: Atorvastatin* 20 MG TAB PO SCH (21:00)
[2019-02-02] MEDS ORDERED: Famotidine TAB* 20 MG PO SCH (09:00)
== END 2019-02-01 12:00 | disposition home or self-care (01) ==
LOC: ED 05:29 → MEDTELE 10:02 → UNDOADMOB 10:02 → ED 12:00 → UNDODISOB 12:00
DX: R07.9 Chest pain, unspecified (principal); I25.10 Atherosclerotic heart disease of native coronary artery without angina pectoris; R00.0 Tachycardia, unspecified; E78.5 Hyperlipidemia, unspecified; E03.9 Hypothyroidism, unspecified; I25.2 Old myocardial infarction; F17.210 Nicotine dependence, cigarettes, uncomplicated; M79.601 Pain in right arm; Z95.810 Presence of automatic (implantable) cardiac defibrillator; Z95.5 Presence of coronary angioplasty implant and graft; Z79.01 Long term (current) use of anticoagulants; Z79.899 Other long term (current) drug therapy; Z79.82 Long term (current) use of aspirin; R94.31 Abnormal electrocardiogram [ECG] [EKG]; I51.7 Cardiomegaly
CPT/HCPCS: 36415; 71046; 80053; 84484; 85025; 93005; 99285; A9270-GY; G0378

== ENCOUNTER 2019-04-08 16:50 | Observation (INO) | payer MEDICARE, BC ==
--- NOTE | 2019-04-08 17:15 | ED ---
Palpitations / Dysrhythmia - HPI Summary HPI Summary: Patient is a 68 y/o M presenting to the ED for a chief complaint of chest pain that began on 04/05/19. Patient states that the chest pain began after he was in atrial fibrillation on 04/05/19. He was sent to [facility] after discussing his symptoms with Dr. Bejarano. The patient currently has improvement of his symptoms with the nitroglycerin patch he has placed on his chest. Patient denies shortness of breath or fever. PMHx is significant for HTN, GERD, CHF, and atrial fibrillation. His last cardioversion was on 02/14/19 and performed at [facility]. Patient admits some alcohol use, denies drug use. Patient works part-time. - History of Current Complaint Chief Complaint: EDDysrhythmPalp Time Seen by Provider: 04/08/19 17:10 Hx Obtained From: Patient Onset/Duration: Sudden Onset, Lasting Days, Still Present Timing: Constant Severity Initially: Moderate Severity Currently: Moderate Character: Irregular - Atrial fibrillation Aggravating: Nothing Alleviating: Medication - NTG patch Associated Signs & Symptoms: Chest Pain - Allergy/Home Medications Allergies/Adverse Reactions: Allergies Allergy/AdvReac Type Severity Reaction Status Date / Time No Known Allergies Allergy Verified 04/08/19 17:32 PMH/Surg Hx/FS Hx/Imm Hx Previously Healthy: Yes Endocrine/Hematology History: Reports: Hx Anticoagulant Therapy - PLAVIX, ASA, xeralto, Hx Thyroid Disease Denies: Hx Blood Disorders, Hx Blood Transfusions, Hx Bone Marrow Disease, Hx Diabetes, Hx Systemic Lupus Erythematosus, Hx Sickle Cell Disease, Hx Anemia , Hx Unexplained Bleeding, Other Endocrine/Hematological Disorders Cardiovascular History: Reports: Hx Aneurysm - popliteal s/p 1992, Hx Angina, Hx Angioplasty, Hx Auto Implanted Cardiovert Defib, Hx Cardiac Arrest, Hx Congestive Heart Failure, Hx Coronary Artery Disease, Hx Hypercholesterolemia, Hx Hypertension, Hx Myocardial Infarction, Hx Pacemaker/ICD, Hx Rheumatic Fever - as a child, Other Cardiovascular Problems/Disorders - CAD Denies: Hx Cardiomegaly, Hx Congenital Heart Disease, Hx Deep Vein Thrombosis , Hx Hypotension, Hx Peripheral Vascular Disease, Hx Syncope, Hx Valvular Heart Disease Respiratory History: Denies: Hx Asthma, Hx Chronic Obstructive Pulmonary Disease (COPD) GI History: Reports: Hx Hiatal Hernia History: Denies: Hx Chronic Renal Failure, Hx Renal Disease Sensory History: Reports: Hx Contacts or Glasses Denies: Hx Cataracts, Hx Eye Injury, Hx Eye Prosthesis, Hx Glaucoma, Hx Legally Blind, Hx Macular Degeneration, Hx Vision Problem, Hx Deafness, Hx Hearing Aid, Hx Hearing Problem, Other Sensory Impairments Opthamlomology History: Reports: Hx Contacts or Glasses Denies: Hx Cataracts, Hx Eye Injury, Hx Eye Prosthesis, Hx Glaucoma, Hx Legally Blind, Hx Macular Degeneration, Hx Vision Problem, Other Sensory Impairments EENT History: Denies: Hx Deafness Neurological History: Reports: Hx Headaches, Hx Transient Ischemic Attacks (TIA) Psychiatric History: Denies: Hx Autism - Surgical History Surgical History: Yes Surgery Procedure, Year, and Place: s/p hernia repair x2, left knee REPAIR. THYROIDECTOMY. ICD [address] [facility]. CABG X 4 1991 W/STENTS, Hx Anesthesia Reactions: No - Immunization History Date of Tetanus Vaccine: unk Date of Influenza Vaccine: 01/08/15 Infectious Disease History: No Infectious Disease History: Denies: Traveled Outside the [place] in Last 30 Days - Family History Known Family History: Positive: Cardiac Disease, Other - Laryngeal CA Family History: Father of [place] at 52. Mother - laryngeal CA. - Social History Occupation: Employed Part-time Alcohol Use: Rare Alcohol Amount: 2 Drinks Hx Substance Use: No Substance Use Type: Reports: None Hx Tobacco Use: Yes - 4x a day Smoking Status (MU): Light Every Day Tobacco Smoker Type: Pipe Amount Used/How Often: about 3/16 ounce of pipe tabacco a day,tabacco pouch last about 5days Length of Time of Smoking/Using Tobacco: since 1966 Have You Smoked in the Last Year: Yes Review of Systems Negative: Fever Positive: Chest Pain Negative: Shortness Of Breath Positive: Other - Positive NTG patch on the chest All Other Systems Reviewed And Are Negative: Yes Physical Exam - Summary Physical Exam Summary: Constitutional: Well-developed, Well-nourished, Alert. (-) Distressed Skin: Warm, Dry HENT: Normocephalic; Atraumatic Eyes: Conjunctiva normal Neck: Musculoskeletal ROM normal neck. (-) JVD, (-) Stridor, (-) Tracheal deviation Cardio: Rhythm regular, rate normal, Heart sounds normal; Intact distal pulses; Radial pulses are 2+ and symmetric. (-) Murmur Pulmonary/Chest wall: Effort normal. (-) Respiratory distress, (-) Wheezes, (-) Rales Abd: Soft, (-) tenderness, (-) Distension, (-) Guarding, (-) Rebound Musculoskeletal: (-) Edema Lymph: (-) Cervical adenopathy Neuro: Alert, Oriented x3 Psych: Mood and affect Normal Triage Information Reviewed: Yes Vital Signs On Initial Exam: Initial Vitals Temp Pulse Resp BP Pulse Ox 97.1 F 70 18 138/69 98 04/08/19 16:52 04/08/19 16:52 04/08/19 16:52 04/08/19 16:52 04/08/19 16:52 Vital Signs Reviewed: Yes Procedures - Sedation Patient Received Moderate/Deep Sedation with Procedure: No Diagnostics - Vital Signs Vital Signs Temp Pulse Resp BP Pulse Ox 04/08/19 16:52 97.1 F 70 18 138/69 98 - Laboratory Result Diagrams: 04/09/19 06:15 04/09/19 06:15 Lab Statement: Any lab studies that have been ordered have been reviewed, and results considered in the medical decision making process. - EKG 16:59 Cardiac Rate: Other Rate - 70 BPM EKG Rhythm: Sinus Rhythm ST Segment: Normal Ectopy: None Summary of EKG Findings: EKG at 16:59 shows paced rhythm with 70 BPM, no STEMI. Reviewed and interpreted by Dr. Casarez. Course/Dx - Course Course Of Treatment: Patient was sent in from his outpatient accounts collector for possible cardioversion. patient is in a paced rhythm at 70. Patient is asymptomatic. Cardiology was called and they said there is underlying flutter of the pacemaker interrogation that they performed. There wanted patient admitted which was done by myself to the hospitalist service. - Diagnoses Provider Diagnoses: Elevated troponin, Atrial flutter - Physician Notifications Discussed Care Of Patient With: Leticia Celaya - At 17:59, Dr. Barlow states the patient will be cardioverted in the morning. NPO at midnight. At 18:00, Dr. Leticia Celaya reviewed the patients case and agrees to admit the patient to [facility] with a diagnosis of atrial flutter and elevated troponin. Time Discussed With Above Provider: 18:00 Instructed by Provider To: Admit As Inpatient Discharge ED - Sign-Out/Discharge Documenting (check all that apply): Patient Departure - Admit - Discharge Plan Condition: Stable Disposition: ADMITTED TO [facility] - Billing Disposition and Condition Condition: STABLE Disposition: Admitted to [facility] - Attestation Statements Document Initiated by Janice: Yes Documenting Scribe: Terri Enciso Provider For Whom Janice is Documenting (Include Credential): Jean Paul Casarez MD Scribe Attestation: Terri Eddy, scribed for Jean Paul Casarez MD on 04/12/19 at 0738. Scribe Documentation Reviewed: Yes Provider Attestation: The documentation as recorded by the Terri tavera accurately reflects the service I personally performed and the decisions made by , Jean Paul Casarez MD Status of Scribe Document: Viewed
--- OUTSIDE RECORDS SUMMARY | 2019-04-08 17:23 | XMS REPORT | Continuity of Care Document ---
:1950 External Reference #:[id number] Author Name Nba Gamboa M.D. (transmitted by agent of provider Azalia Dunbar) Address [address] [place] [address] Care Team Providers Name Role Phone Surjit Berg M.D. - Family Medicine Care Team Information Contracts Advisor Problems Active Problems Provider Date Conduction disorder [...] Use Denies Drug Use Smoking Status Reviewed: 02/13/19 Patient is a current pipe, 2-4 times per smoker, smokes every day day Exercise Type/Frequency Exercises regularly walking daily Allergies, Adverse Reactions, Alerts Description No Known Drug Allergies Medications Active Medications SIG Qnty Indications Ordering Provider Date Amlodipine Besylate 1 by mouth every 90tabs Nba Gamboa, 04/10/2018 5mg day M.D. Tablets Furosemide 1 by mouth once 90tabs Nba Gamboa, 12/25/2017 40mg Tablets a day M.D. Nitrostat one sl q5min up 25tabs Nba [...] Ranitidine HCL 1 by mouth two 60tabs Nba Gamboa, 150mg times per day M.D. Tablets Aspirin 1 by mouth every Unknown 81mg Tablets day Am Synthroid 1 by mouth every Unknown 200mcg day Am Tablets Nitro-Dur on at at bedtime 90units Nba Gamboa, 0.4mg/HR off in in the M.D. Patches 24HR morning prn Fluticasone 2 sprays each Unknown Propionate nostril daily as 50mcg/Act needed Suspension Docusate Sodium as needed Unknown 100mg Capsules Potassium Chloride ER 1 by mouth every 90tabs Nba Gamboa, day M.D. 20Meq Tablets ER Metoprolol Succinate 1 by mouth every 90tabs Nba Gamboa, ER day M.D. 50mg Tablets ER 24HR Medications Administered in Office Medication SIG Qnty [...] Available Vital Signs Date Vital Result Comment 02/13/2019 8:12am Height 72 inches 6'0" Weight 268.00 lb with shoes Heart Rate 60 /min BP Systolic Sitting 96 mmHg lue reg cuff BP Diastolic Sitting 58 mmHg lue reg cuff BP Systolic Standing 92 mmHg lue reg cuff BP Diastolic Standing 58 mmHg lue reg cuff Respiratory Rate 16 /min BMI (Body Mass Index) 36.3 kg/m2 Ejection Fraction 30-35% echo.05/26/17 2018 10:42am Height 72 inches 6'0" Weight 269.00 lb with shoes Heart Rate 60 /min BP Systolic Sitting 119 mmHg Rue BP Diastolic Sitting 82 mmHg Rue BP Systolic Standing 120 mmHg Rue BP Diastolic Standing 79 mmHg Rue BMI (Body Mass Index) 36.5 kg/m2 Ejection Fraction 30-35% Echo 05/26/17 Results Test Acquired Date Facility Test Result H/L Range Note Basic Metabolic 02/14/2019 [facility] Sodium 139 mmol/L Normal 135-145 Panel [address] [place] [address] [phone] Potassium 3.9 mmol/L Normal 3.5-5.0 Chloride 106 mmol/L Normal 101-111 Co2 Carbon Dioxide 26 mmol/L Normal 22-32 Anion Gap 7 mmol/L Normal 2-11 Glucose 92 mg/dL Normal 70-100 Blood Urea Nitrogen 25 mg/dL High 6-24 Creatinine 1.24 mg/dL High 0.67-1.17 BUN/Creatinine Ratio 20.2 High 8-20 Calcium 9.3 mg/dL Normal 8.6-10.3 Egfr Non- 57.6 >60 Egfr 69.7 >60 1 Basic Metabolic 12/18/2018 [facility] Sodium 139 mmol/L Normal 135-145 [address] [place], [place] [id number] [phone] Potassium 4.0 mmol/L Normal 3.5-5.0 Chloride 105 mmol/L Normal 101-111 Co2 Carbon Dioxide 28 mmol/L Normal 22-32 Anion Gap 6 mmol/L Normal 2-11 Glucose 90 mg/dL Normal 70-100 Blood Urea Nitrogen 22 mg/dL Normal 6-24 Creatinine 1.18 mg/dL High 0.67-1.17 BUN/Creatinine Ratio 18.6 Normal 8-20 Calcium 9.4 mg/dL Normal 8.6-10.3 Egfr Non- 61.0 >60 Egfr 73.8 >60 2 1 Because ethnic data is not always readily available, this report includes an eGFR for both -Americans and non- Americans. The National Kidney Disease Education Program (NKDEP) does not endorse the use of the MDRD equation for patients that are not between the ages of 18 and 70, are , have extremes of body size, muscle mass, or nutritional status, or are non- or non-. According to the National Kidney Foundation, irrespective of diagnosis, the stage of the disease is based on the level of kidney function: Stage Description GFR(mL/min/1.73 m(2)) 1 Kidney damage with normal or decreased GFR 90 2 Kidney damage with mild decrease in GFR 60-89 3 Moderate decrease in GFR 30-59 4 Severe decrease in GFR 15-29 5 Kidney failure <15 (or dialysis) 2 Because ethnic data is not always readily available, this report includes an eGFR for both -Americans and non- Americans. The National Kidney Disease Education Program (NKDEP) does not endorse the use of the MDRD equation for patients that are not between the ages of 18 and 70, are , have extremes of body size, muscle mass, or nutritional status, or are non- or non-. According to the National Kidney Foundation, irrespective of diagnosis, the stage of the disease is based on the level of kidney function: Stage Description GFR(mL/min/1.73 m(2)) 1 Kidney damage with normal or decreased GFR 90 2 Kidney damage with mild decrease in GFR 60-89 3 Moderate decrease in GFR 30-59 4 Severe decrease in GFR 15-29 5 Kidney failure <15 (or dialysis) Procedures Date Code Description Status 02/14/2019 47625 Moderate Sedation Services; Same Phys Intl 15 Mins; PT Completed >= 5 Years 02/14/2019 80816 Cardioversion Completed 02/05/2019 61801 Interrogation Implant Cardiovasc Monitor System Incl Completed Analysis Int 02/05/2019 90196 Interrogation Implant Cardiovasc Monitor System Incl Completed Analysis Int 02/05/2019 41656 Icd Eval With Inerative Adjustmt Dual Lead System Completed 02/05/2019 65283 Icd Eval With Inerative Adjustmt Dual Lead System Completed 02/01/2019 01198 Interrogation Device Eval In Person W/DR Completed Analysis,Single,Dual,Mul 09/18/2018 34722 Diffusing Capacity Completed 09/18/2018 64150 Spirometry Incl Graphic Record Completed 09/11/2018 97305 EKG Tracing & Interpretation Completed 03/21/2014 21199492 Colonoscopy Completed Medical Devices Description No Information Available Encounters Type Date Location Provider Dx Diagnosis Office Visit 02/13/2019 [facility] Nba Rivera I50.9 Heart failure, 8:30a Of Kellie Gamboa M.D. unspecified I48.0 Paroxysmal atrial fibrillation I25.5 Ischemic cardiomyopathy Office Visit 02/01/2019 [facility] Arjun SGianluca Z95.810 Presence of 11:17a Cardiology Of DO saida Ramon Cma FACC (implantable) cardiac defibrillator I47.1 Supraventricular tachycardia I48.92 Unspecified atrial flutter Office Visit 02/01/2019 [facility] R07.9 Chest pain, 1:02p Assoc,philippe Collado M.D. unspecified Hospitalists M79.601 Pain in right arm Office Visit 2018 10:45a [facility] Nba Rivera I50.9 Heart failure, Of Kellie Gamboa M.D. unspecified I48.0 Paroxysmal atrial fibrillation I25.5 Ischemic cardiomyopathy I25.10 Athscl heart disease of [place] coronary artery w/o ang pctrs Office Visit 12/03/2018 2:00p Surgical Roxana Mejía, K40.91 [facility] Kellie HULL inguinal hernia, w/o obst or gangrene, recurrent Office Visit 09/18/2018 10:30a Pulmonology And Ibis J84.10 [facility] Of MD Eliu fibrosis, [facility] unspecified J98.4 Other disorders of lung Office Visit 09/11/2018 1:00p [facility] Nba Rivera I48.0 Paroxysmal atrial Of Admissions Specialist AT [facility] Jil Gamboa fibrillation I50.9 Heart failure, unspecified Z95.810 Presence of automatic (implantable) cardiac defibrillator I25.5 Ischemic cardiomyopathy Z79.01 jail (current) use of anticoagulants I25.10 Athscl heart disease of [place] coronary artery w/o ang pctrs Assessments Date Code Description Provider 02/14/2019 I48.3 Typical atrial flutter Nba Gamboa M.D. 02/13/2019 I50.9 Heart failure, unspecified Nba Gamboa M.D. 02/13/2019 I48.0 Paroxysmal atrial fibrillation Nba Gamboa M.D. 02/13/2019 I25.5 Ischemic cardiomyopathy Nba Gamboa M.D. 02/05/2019 I50.9 Heart failure, unspecified Nba Gamboa M.D. 02/05/2019 I50.9 Heart failure, unspecified Ica Pacer Schedule 02/05/2019 I48.0 Paroxysmal atrial fibrillation Ica Pacer Schedule 02/05/2019 I25.5 Ischemic cardiomyopathy Nba Gamboa M.D. 02/05/2019 I25.5 Ischemic cardiomyopathy Ica Pacer Schedule 02/05/2019 Z95.810 Presence of automatic (implantable) Nba Gamboa M.D. cardiac defibrillator 02/05/2019 Z95.810 Presence of automatic (implantable) Ica Pacer Schedule cardiac defibrillator 02/01/2019 R07.9 Chest pain, unspecified Donaldo Collado M.D. 02/01/2019 Z95.810 Presence of automatic (implantable) Arjun Ramon DO [facility] cardiac defibrillator 02/01/2019 M79.601 Pain in right arm Donaldo Collado M.D. 02/01/2019 I47.1 Supraventricular tachycardia Arjun Ramon DO FAC 02/01/2019 I48.92 Unspecified atrial flutter Arjun Ramon DO FAC 2018 I50.9 Heart failure, unspecified Nba Gamboa M.D. 2018 I48.0 Paroxysmal atrial fibrillation Nba Gamboa M.D. 2018 I25.5 Ischemic cardiomyopathy Nba Gamboa M.D. 2018 I25.10 Atherosclerotic heart disease of [place] Nba Gamboa M.D. coronary artery with 12/03/2018 K40.91 Unilateral inguinal hernia, without Roxana Mejía MD obstruction or gangrene, recurrent 09/18/2018 [...] Ischemic cardiomyopathy Nba Gamboa M.D. 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 09/11/2018 I25.10 Atherosclerotic heart disease of [place] Nba Gamboa M.D. coronary artery with Plan of Treatment 02/13/2019 - Nba Gamboa M.D.I50.9 Heart failure, ixnznnryntvW08.0 Paroxysmal atrial aajomuwxagirK20.5 Ischemic cardiomyopathyFollow up:1 month Functional Status Description No Information Available Mental Status Description No Information Available Referrals Description No Information Available
--- OUTSIDE RECORDS SUMMARY | 2019-04-08 17:23 | XMS REPORT | Continuity of Care Document ---
:1950 External Reference #:[id number] Author Name Nba Gamboa M.D. (transmitted by agent of provider Keli Jordan) Address [address] [facility] [place] [address] Care Team Providers Name Role Phone Surjit Berg M.D. - Family Medicine Care Team Information Manager Corporate Strategy Problems Active Problems Provider Date Conduction disorder of the heart bNa Gamboa M.D. Onset: 01/18/2013 Arteriosclerosis of autologous [...] Use Denies Drug Use Smoking Status Reviewed: 03/19/19 Patient is a current pipe, 2-4 times per smoker, smokes every day day Exercise Type/Frequency Exercises regularly walking daily Allergies, Adverse Reactions, Alerts Description No Known Drug Allergies Medications Active Medications SIG Qnty Indications Ordering Date Provider Cyclobenzaprine HCL 1 tablet prn Unknown 03/18/2019 5mg for back pain Tablets Amlodipine Besylate 1 by mouth 90tabs Nba DGianluca 04/10/2018 5mg every day Jil Gamboa Tablets Furosemide 1 by mouth once 90tabs Nba DGianluca 12/25/2017 40mg Tablets a day Jil Gamboa Nitrostat one sl q5min up 25tabs Nba D. 09/18/2012 0.4mg Tablets Sub to 3 doses as Jil Gamboa needed Xarelto 1 by mouth 90tabs Nba DGianluca 09/14/2012 20mg Tablets every day taken Jil Gamboa at bedtime Plavix 1 tab by mouth 90tabs Nba DGianluca 03/27/2012 75mg Tablets every day in Jil Gamboa the morning Metoprolol Succinate ER 1 by mouth 90tabs Nba DGianluca every day Jil Gamboa 50mg Tablets ER 24HR Potassium Chloride ER 1 by mouth 90tabs Nba DGianluca 20Meq every day Jil Gamboa Tablets ER Docusate Sodium as needed Unknown 100mg Capsules Fluticasone Propionate 2 sprays each Unknown nostril daily 50mcg/Act Suspension as needed Nitro-Dur on at at 90units Nba Rivera 0.4mg/HR Patches bedtime off in Jil Gamboa 24HR in the morning prn Synthroid 1 by mouth Unknown 200mcg Tablets every day Am Aspirin 1 by mouth Unknown 81mg Tablets every day Am Ranitidine HCL 1 by mouth two 60tabs Nba D. 150mg times per day Jil Gamboa Tablets Pravastatin Sodium 1 tablet once 30tabs Unknown 80mg daily at Tablets bedtime Folic Acid 1 po qd Unknown 1mg Amiodarone HCL 1 1/2 po qd Am 90tabs Unknown 200mg Tablets Medications Administered in Office Medication SIG Qnty Indications Ordering Provider Date Depomedrol 40MG Erika Jessica M.D. 02/01/2016 Injection Inj, Regadenoson, 0.1 MG Nba D. Brand, M.D. 08/01/2013 Injection Technetium TC 99M Tetrofosmin, Nba Gamboa M.D. 08/01/2013 Per Unit Dose Up To 40 Millicuries Injection Inj, Regadenoson, 0.1 MG Nba Gamboa M.D. 08/29/2012 Injection Technetium TC 99M TetrofosminNba M.D. 08/29/2012 Per Unit Dose Up To 40 Millicuries Injection Immunizations Description No Information Available Vital Signs Date Vital Result Comment 03/19/2019 1:51pm Height 72 inches 6'0" Weight 269.38 lb w/ shoes Heart Rate 80 /min L. radial, regular BP Systolic Sitting 118 mmHg LA, lg cuff BP Diastolic Sitting 60 mmHg LA, lg cuff BP Systolic Standing 118 mmHg LA, lg cuff BP Diastolic Standing 62 mmHg LA, lg cuff BMI (Body Mass Index) 36.5 kg/m2 Ejection Fraction 30-35% 05/26/17 02/13/2019 8:12am Height 72 inches 6'0" Weight 268.00 lb with shoes Heart Rate 60 /min BP Systolic Sitting 96 mmHg lue reg cuff BP Diastolic Sitting 58 mmHg lue reg cuff BP Systolic Standing 92 mmHg lue reg cuff BP Diastolic Standing 58 mmHg lue reg cuff Respiratory Rate 16 /min BMI (Body Mass Index) 36.3 kg/m2 Ejection Fraction 30-35% echo.05/26/17 Results Test Acquired Date Facility Test Result H/L Range Note Basic Metabolic 02/14/2019 [facility] Sodium 139 mmol/L Normal 135-145 Panel [address] [place] [address] [phone] Potassium 3.9 mmol/L Normal 3.5-5.0 Chloride 106 mmol/L Normal 101-111 Co2 Carbon Dioxide 26 mmol/L Normal 22-32 Anion Gap 7 mmol/L Normal 2-11 Glucose 92 mg/dL Normal 70-100 Blood Urea Nitrogen 25 mg/dL High 6-24 Creatinine 1.24 mg/dL High 0.67-1.17 BUN/Creatinine Ratio 20.2 High 8-20 Calcium 9.3 mg/dL Normal 8.6-10.3 Egfr Non- 57.6 >60 Egfr 69.7 >60 1 Basic Metabolic 12/18/2018 [facility] Sodium 139 mmol/L Normal 135-[address] [place] [address] [phone] Potassium 4.0 mmol/L Normal 3.5-5.0 Chloride 105 [...] (or dialysis) Procedures Date Code Description Status 03/08/2019 17482 Interrogation Device Eval Remote Up To 30 Days Completed Analysis,Rev,RP 03/08/2019 76168 Interrogation Device Eval Remote Up To 30 Days Completed Analysis,Rev,RP 03/08/2019 99514 Icd Eval Sing,Dual,Multi Lead Remote Recpt Transm Tech Completed Rev Tech S 03/08/2019 39279 Icd Eval Sing,Dual,Multi Lead Remote Recpt Transm Tech Completed Rev Tech S 03/08/2019 56648 Icd Check Remote Up To 90 Days Single,Dual,Multiple Completed Lead 03/08/2019 13429 Icd Check Remote Up To 90 Days Single,Dual,Multiple Completed Lead 02/14/2019 06679 Moderate Sedation Services; Same Phys Intl 15 Mins; PT Completed >= 5 Years 02/14/2019 69690 EKG, Interpretation Only Completed 02/14/2019 71313 Cardioversion Completed 02/05/2019 46768 Icd Eval With Inerative Adjustmt Dual Lead System Completed 02/05/2019 81858 Icd Eval With Inerative Adjustmt Dual Lead System Completed 02/05/2019 10365 Interrogation Implant Cardiovasc Monitor System Incl Completed Analysis Int 02/05/2019 96502 Interrogation Implant Cardiovasc Monitor System Incl Completed Analysis Int 02/01/2019 48199 EKG, Interpretation Only Completed 02/01/2019 35018 Interrogation Device Eval In Person W/ Completed Analysis,Single,Dual,Mul 09/18/2018 74546 Diffusing Capacity Completed 09/18/2018 59130 Spirometry Incl Graphic Record Completed 03/21/2014 [id number] Colonoscopy Completed Medical Devices Description No Information Available Encounters Type Date Location Provider Dx Diagnosis Office Visit 02/13/2019 [facility] Nba Rivera I50.9 Heart failure, 8:30a Of Kellie Gamboa M.D. unspecified I48.0 Paroxysmal atrial fibrillation I25.5 Ischemic cardiomyopathy Office Visit 02/01/2019 [facility] Z95.810 Presence of 11:17a Cardiology Of DO Tristen automatic Kellie FACC (implantable) cardiac defibrillator I47.1 Supraventricular tachycardia I48.92 Unspecified atrial flutter Office Visit 02/01/2019 [facility] R07.9 Chest pain, 1:02p Assoc,philippe Collado M.D. unspecified Hospitalists M79.601 Pain in right arm Office Visit 2018 10:45a [facility] Nba Rivera I50.9 Heart failure, Of Kellie Gamboa M.D. unspecified I48.0 Paroxysmal atrial fibrillation I25.5 Ischemic cardiomyopathy I25.10 Athscl heart disease of [place] coronary artery w/o ang pctrs Office Visit 12/03/2018 2:00p Surgical Roxana Alfonzo, K40.91 [facility] inguinal hernia, w/o obst or gangrene, recurrent Office Visit 09/18/2018 10:30a Pulmonology And Ibis J84.10 [facility] Of MD Eliu fibrosis, [facility] unspecified J98.4 Other disorders of lung Assessments Date Code Description Provider 03/19/2019 I50.9 Heart failure, unspecified Nba Gamboa M.D. 03/19/2019 I25.5 Ischemic cardiomyopathy Nba Gamboa M.D. 03/19/2019 Z95.810 Presence of automatic (implantable) Nba Gamboa M.D. cardiac defibrillator 03/08/2019 I48.3 Typical atrial flutter Nba Gamboa M.D. 03/08/2019 I48.3 Typical atrial flutter Remote Device Checks 03/08/2019 I50.9 Heart failure, unspecified Nba Gamboa M.D. 03/08/2019 I50.9 Heart failure, unspecified Remote Device Checks 03/08/2019 I25.5 Ischemic cardiomyopathy Nba Gamboa M.D. 03/08/2019 I25.5 Ischemic cardiomyopathy Remote Device Checks 03/08/2019 Z95.810 Presence of automatic (implantable) Nba Gamboa M.D. cardiac defibrillator 03/08/2019 Z95.810 Presence of automatic (implantable) Remote Device Checks cardiac defibrillator 02/14/2019 I48.92 Unspecified atrial flutter Diana Barlow M.D. 02/14/2019 I48.3 Typical atrial flutter Nba Gamboa [...] (implantable) Ica Pacer Schedule cardiac defibrillator 02/01/2019 R94.31 Abnormal electrocardiogram [ECG] [EKG] Arjun Ramon, DO [facility] 02/01/2019 R07.9 Chest pain, unspecified Donaldo Collado M.D. 02/01/2019 Z95.810 Presence of automatic (implantable) Arjun Ramon, DO [facility] cardiac defibrillator 02/01/2019 M79.601 Pain in right arm Donaldo Collado M.D. 02/01/2019 I47.1 Supraventricular tachycardia Arjun Ramon DO FACC 02/01/2019 I48.92 Unspecified atrial flutter Arjun Ramon, DO FAC 2018 I50.9 Heart failure, unspecified Nba Gamboa M.D. 2018 I48.0 Paroxysmal atrial fibrillation Nba Gamboa M.D. 2018 I25.5 Ischemic cardiomyopathy Nba Gamboa M.D. 2018 I25.10 Atherosclerotic heart disease of [place] Nba Gamboa M.D. coronary artery with 12/03/2018 K40.91 Unilateral inguinal hernia, without Roxana Mejía MD obstruction or gangrene, recurrent 09/18/2018 J84.10 Pulmonary fibrosis, unspecified Ibis Nowak MD 09/18/2018 J84.10 Pulmonary fibrosis, unspecified Ibis Nowak MD 09/18/2018 J98.4 Other disorders of lung Ibis Nowak MD Plan of Treatment Future Appointment(s):06/18/2019 1:00 pm - Nba Gamboa M.D. at [facility] [place]/19/2019 - Nba Gamboa M.D.I50.9 Heart failure, unspecifiedFollow up:3 rejwueA02.5 Ischemic jtjktrnznxgbfiV67.810 Presence of automatic (implantable) cardiac defibrillator Functional Status Description No Information Available Mental Status Description No Information Available Referrals Description No Information Available
--- OUTSIDE RECORDS SUMMARY | 2019-04-08 17:23 | XMS REPORT | Continuity of Care Document ---
:1950 External Reference #:[id number] Author Name Nba Gamboa M.D. (transmitted by agent of provider Matilda Stearns) Address [address] [place] [address] Care Team Providers Name Role Phone Surjit Berg M.D. - Family Medicine Care Team Information Wind Up Operator Problems Active Problems Provider Date Conduction disorder [...] Furosemide 1 by mouth once 30tabs Arjun SGianluca Ramon, 12/25/2017 40mg Tablets a day DO FACC Nitrostat one sl q5min up 25tabs Nba [...] Unknown 100mg Capsules Potassium Chloride ER 1 po qd Unknown 20Meq Tablets ER Metoprolol Succinate 1 by mouth every Unknown ER day 50mg Tablets ER 24HR Medications Administered in Office Medication SIG Qnty Indications Ordering Provider Date Depomedrol 40MG Erika Jessica M.D. 02/01/2016 Injection Inj, Regadenoson, 0.1 MG Nba Gamboa M.D. 08/01/2013 Injection Technetium TC 99M TetrofosminNba M.D. 08/01/2013 Per Unit Dose Up To 40 Millicuries Injection Inj, Regadenoson, 0.1 MG Nba Gamboa M.D. 08/29/2012 Injection Technetium TC 99M Tetrofosmin, Nba Gamboa M.D. 08/29/2012 Per Unit Dose Up To [...] Test Result H/L Range Note Basic Metabolic 12/18/2018 [facility] Sodium 139 mmol/L Normal 135-145 Panel [address] [place] [address] [phone] Potassium 4.0 mmol/L Normal 3.5-5.0 Chloride 105 mmol/L Normal 101-111 Co2 Carbon Dioxide 28 mmol/L Normal 22-32 Anion Gap 6 mmol/L Normal 2-11 Glucose 90 mg/dL Normal 70-100 Blood Urea Nitrogen 22 mg/dL Normal 6-24 Creatinine 1.18 mg/dL High 0.67-1.17 BUN/Creatinine Ratio 18.6 Normal 8-20 Calcium 9.4 mg/dL Normal 8.6-10.3 Egfr Non- 61.0 >60 Egfr 73.8 >60 1 1 Because ethnic data is not always [...] (or dialysis) Procedures Date Code Description Status 02/05/2019 73219 Interrogation Implant Cardiovasc Monitor System Incl Completed Analysis Int 02/05/2019 62406 Interrogation Implant Cardiovasc Monitor System Incl Completed Analysis Int 02/05/2019 79507 Icd Eval With Inerative Adjustmt Dual Lead System Completed 02/05/2019 84041 Icd Eval With Inerative Adjustmt Dual Lead System Completed 02/01/2019 84254 Interrogation Device Eval In Person W/DR Completed Analysis,Single,Dual,Mul 09/18/2018 51252 Diffusing Capacity Completed 09/18/2018 20016 Spirometry Incl Graphic Record Completed 09/11/2018 01637 EKG Tracing & Interpretation Completed 08/20/2018 39950 EKG, Interpretation Only Completed 08/20/2018 95309 Cardioversion Completed 08/15/2018 99561 Interrogation Implant Cardiovasc Monitor System Incl Completed Analysis Int 08/15/2018 92368 Interrogation Implant Cardiovasc Monitor System Incl Completed Analysis Int 08/15/2018 08149 Icd Eval With Inerative Adjustmt Dual Lead System Completed 08/15/2018 78698 Icd Eval With Inerative Adjustmt Dual Lead System Completed 03/21/2014 27694548 Colonoscopy Completed Medical Devices Description No Information Available Encounters Type Date Location Provider Dx Diagnosis Office Visit 02/13/2019 [facility] Nba Rivera I50.9 Heart failure, 8:30a Of Kellie Gamboa M.D. unspecified I48.0 Paroxysmal atrial fibrillation I25.5 Ischemic cardiomyopathy Office Visit 02/01/2019 [facility] Z95.810 Presence of 11:17a Cardiology Of DO saida Ramon Cma FACC (implantable) cardiac defibrillator I47.1 Supraventricular tachycardia I48.92 Unspecified atrial flutter Office Visit 02/01/2019 [facility] R07.9 Chest pain, 1:02p Assoc,philippe Collado M.D. unspecified Hospitalists M79.601 Pain in right arm Office Visit 2018 10:45a [facility] Nba Rivera I50.9 Heart failure, Of Kellie Gamboa M.D. unspecified I48.0 Paroxysmal atrial fibrillation I25.5 Ischemic cardiomyopathy I25.10 Athscl heart disease of [place] coronary artery w/o ang pctrs Office Visit 12/03/2018 2:00p Surgical Roxana Alfonzo, K40.91 [facility] inguinal hernia, w/o obst or gangrene, recurrent Office Visit 09/18/2018 10:30a Pul[facility] Ibis J84.10 [facility] Eliu fibrosis, [facility] unspecified J98.4 Other disorders of lung Office Visit 09/11/2018 1:00p [facility] Nba Rivera I48.0 Paroxysmal atrial Of [facility] Jil Gamboa fibrillation I50.9 Heart failure, unspecified Z95.810 Presence of automatic (implantable) cardiac defibrillator I25.5 Ischemic cardiomyopathy 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 unspecified Z95.810 Presence of automatic (implantable) cardiac defibrillator J84.10 Pulmonary fibrosis, unspecified I25.5 Ischemic cardiomyopathy I48.92 Unspecified atrial flutter Assessments Date Code Description Provider 02/13/2019 I50.9 Heart failure, unspecified Nba Gamboa [...] Presence of automatic (implantable) Arjun Ramon, DO [facility] cardiac defibrillator 02/01/2019 M79.601 Pain in right arm Donaldo Collado M.D. 02/01/2019 I47.1 Supraventricular tachycardia Arjun Ramon, DO FAC 02/01/2019 I48.92 Unspecified atrial flutter Arjun Ramon, DO [facility] 2018 I50.9 Heart failure, unspecified Nba Gamboa M.D. 2018 I48.0 Paroxysmal atrial fibrillation Nba Gamboa M.D. 2018 I25.5 Ischemic cardiomyopathy Nba Gamboa M.D. 2018 I25.10 Atherosclerotic heart disease of Nba Gamboa M.D. [place] coronary artery with 12/03/2018 K40.91 Unilateral inguinal [...] Ischemic cardiomyopathy Nba Gamboa M.D. 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 anticoagulants 09/11/2018 I25.10 Atherosclerotic heart disease of Nba Gamboa M.D. [place] coronary artery with 08/20/2018 R94.31 Abnormal electrocardiogram [...] I48.92 Unspecified atrial flutter Nba Gamboa M.D. Plan of Treatment Future Appointment(s):03/12/2019 1:15 pm - Nba Gamboa M.D. at [facility] [place]/14/2019 7:30 am - Nba Gamboa M.D. at [facility]02/13/2019 - Nba Gamboa M.D.I50.9 Heart failure, hrzdqmljmoxQ76.0 Paroxysmal atrial usbovqmpbmytU43.5 Ischemic cardiomyopathyNew Orders:Cardioversion, Ordered: 02/13/19Follow up:1 month Functional Status Description No Information Available Mental Status Description No Information Available Referrals Description No Information Available
[2019-04-08 17:58] LABS: ABS Basophils 0.1 10^3/ul (0-0.2); ABS Eosinophils 0.3 10^3/ul (0-0.6); ABS Monocytes 0.8 10^3/ul (0-0.8); ABS Neutrophils 5.2 10^3/ul (1.5-7.7); Eosinophil % 3.7 %; Hematocrit 36 % (42-52); Hemoglobin 11.6 g/dL (14.0-18.0); Lymphocyte % 13.6 %; Mean Corpuscular HGB Conc 33 g/dL (31-36); Mean Corpuscular Hemoglobin 28 pg (27-31); Mean Corpuscular Volume 85 fL (80-94); Platelet Count 387 10^3/uL (150-450); Red Blood Count 4.19 10^6 /uL (4.18-5.48); Red Cell Distribution Width 18 % (10-15); White Blood Count 7.4 10^3/uL (3.5-10.8)
[2019-04-08 18:18] LABS: ALT 12 U/L (7-52); AST 18 U/L (13-39); Albumin 4.2 g/dL (3.2-5.2); Albumin/Globulin Ratio 1.1 (1-3); Alkaline Phosphatase 147 U/L (34-104); Anion Gap 9 mmol/L (2-11); BUN/Creatinine Ratio 17.9 (8-20); Blood Urea Nitrogen 25 mg/dL (6-24); CO2 Carbon Dioxide 25 mmol/L (22-32); Calcium 9.2 mg/dL (8.6-10.3); Chloride 105 mmol/L (101-111); EGFR African American 60.6 (>60); EGFR Non-African American 50.1 (>60); Globulin 3.7 g/dL (2-4); Glucose 95 mg/dL (70-100); Potassium 3.9 mmol/L (3.5-5.0); Sodium 139 mmol/L (135-145); Total Protein 7.9 g/dL (6.4-8.9)
[2019-04-08 18:20] LABS: Troponin I 0.07 ng/mL (<0.03)
--- NOTE | 2019-04-08 18:26 | ED ---
ED Sedation - Procedural Sedation/Analgesia Sedation Course: RT Present, Emergency Airway Equipment Available, Informed Consent Obtained, Time Out Completed, End-tidal Capnography Utilized Adverse Reactions Experienced by Patient: None Mallampati Classification: Class II ASA Classification: Class I: Normal/Healthy Pre-Procedural Heart: No Murmur Pre-Procedural Lungs: Other - Absent breath sounds on the left Provider Procedure Attestation: With My Signature Below, I Attest to have Personally Reviewed and Agree with the Pre-Sedation History and Pre-Service Assessment Update Cleared for Moderate Sedation: Yes Pre-Procedural Diagnosis: Left pneumothorax
[2019-04-08] MEDS ORDERED: Acetaminophen TAB* 325 MG PO PRN (18:40)
[2019-04-08] MEDS ORDERED: Docusate CAP* 100 MG PO PRN (19:14)
[2019-04-08] MEDS ORDERED: Nitroglycerin TAB 0.4 MG* 0.4 MG TAB SL PRN (19:35)
[2019-04-08] MEDS ORDERED: Rivaroxaban TAB(*) 20 MG TAB PO SCH (21:00)
--- NOTE | 2019-04-08 22:04 | HP ---
CC: Dr. Bejarano; Dr. Barlow; Dr. Gamboa; Dr. Berg* HISTORY AND PHYSICAL: DATE OF ADMISSION: 04/08/19 PRIMARY CARE PROVIDER: Dr. Berg. FILM RENTAL CLERK: Dr. Gamboa. CHIEF COMPLAINT: "I was told to come here for cardioversion." HISTORY OF PRESENT ILLNESS: Ron Armstrong is a 68-year-old male with a history of ischemic cardiomyopathy with paroxysmal atrial fibrillation and atrial flutter with multiple cardioversions in the past and whenever he is in atrial fibrillation/flutter, he will have angina symptoms. The patient stated that usually his angina symptom is right arm pain. He has been having intermittent right arm pain ever since 04/05/19. Today, in the morning , he noted that his heart rate was 70 and usually he is paced with heart rate in the 50s. He called the office to have his pacemaker interrogated and connected to the phone. Dr. Bejarano apparently looked at the pacemaker interrogation and noted the patient was in AFib/flutter. He was directed to the ED for evaluation for cardioversion. When he came into the hospital, the ED provider evaluated the patient who at that point had no complaints. He denies any chest pain or shortness of breath, but he has been having intermittent right arm pain with his angina equivalent for the past 3 days. At that point, a discussion between ED provider and Dr. Barlow was that the patient needs to be placed on overnight observation for cardioversion in the morning. The patient stated that he just had an episode of right arm pain when he was in the ED but it was brief. He uses nitroglycerin patch whenever he has his angina symptoms and he has 1 patch on now. He is going to be placed on overnight observation for cardioversion in the morning. PAST MEDICAL HISTORY: 1. History of ischemic cardiomyopathy with EF of approximately 30% to 35%. 2. Status post coronary artery bypass grafting in 1991. 3. Status post AICD placement. 4. History of chronic systolic CHF. 5. History of hypothyroidism. 6. History of paroxysmal atrial fibrillation/flutter, status post multiple cardioversions. 7. History of ventricular tachycardia. 8. Obesity. 9. Hypertension. 10. History of left knee surgery in the past. 11. Inguinal hernia repair, left x2. 12. Tonsillectomy. 13. [place] teeth removal. 14. History of right ventricular lead fracture of his ICD in 2012. 15. The most recent cardioversion was in February 2019. 16. History of atrial flutter ablation in 2017. 17. The patient has chronic kidney disease, stage 3. MEDICATIONS: At home include: 1. Ranitidine 150 mg daily. 2. Levothyroxine 200 mcg daily. 3. Folic acid 1 mg daily. 4. Metoprolol succinate 50 mg daily. 5. Aspirin 81 daily. 6. Amiodarone 300 mg daily. 7. Amlodipine 5 mg daily. 8. Potassium chloride 20 mEq q.a.m. 9. Colace 100 mg daily p.r.n. 10. Pravastatin 80 mg at bedtime. 11. Furosemide 40 mg daily. 12. Plavix 75 mg daily. ALLERGIES: No known drug allergies. FAMILY HISTORY: Positive for father with diabetes and heart disease. Mother with a history of cancer. SOCIAL HISTORY: The patient smokes pipe and drinks approximately 3 beers every week, but he has not drunk this past week any alcohol, which was just 2 to 3 days ago. He denies any drug use. He is and his surrogate is his . He is a full code. REVIEW OF SYSTEMS: Please see history of present illness. All the remaining 12 systems were reviewed with the patient and were otherwise negative. PHYSICAL EXAMINATION GENERAL: The patient is a pleasant 68-year-old male, who is in no acute distress. The patient is alert and oriented x3. VITAL SIGNS: Blood pressure 110/66, heart rate of 76 and regular, respiratory rate 20, oxygen saturation 95% on room air, temperature of 98.2. HEENT: Head: Atraumatic, normocephalic. Eyes: Pupils equal and reactive to light and accommodation. Oropharynx clear. Mucosa moist. NECK: Supple. No JVD. No bruits bilaterally. RESPIRATORY: Clear to auscultation bilaterally. CARDIOVASCULAR: Irregular rhythm. No murmur. ABDOMEN: Soft, nontender. Bowel sounds are present in all 4 quadrants. EXTREMITIES: There is trace left ankle edema. Pulses are +2 bilaterally. No clubbing or cyanosis. NEUROLOGIC: On neuro evaluation, speech is clear. Cranial nerves II through XII are grossly intact. Motor strength is 5/5 bilaterally. DIAGNOSTIC STUDIES/LAB DATA: Sodium of 139, potassium 3.9, chloride 105, carbon dioxide 25, BUN 25, creatinine 1.4. Liver function tests unremarkable apart from alkaline phosphatase of 147, which appears to be chronic for this patient. Troponin of 0.07. The patient's troponin had been elevated in the past in the range of 0.05 to 0.08. The patient's portable chest x-ray shows marked cardiomegaly and mild vascular congestion. The patient's EKG shows ventricular paced rhythm with a heart rate of 70 beats per minute with likely underlying AFib/flutter. ASSESSMENT AND PLAN: 1. The patient has symptoms of angina whenever he is in atrial fibrillation and flutter. It appears that he tolerates heart rate in the 50s and when he is in atrial fibrillation and flutter, he goes up to the 70s and that is enough to precipitate his cardiac symptoms. His troponin appears to be mildly elevated, which is consistent with chronic. The patient is going to be placed on overnight observation, placed n.p.o. in the morning for cardioversion in the morning. 2. In regards to his history of atrial fibrillation, as mentioned above his medications are going to be continued including his amiodarone. 3. For his congestive heart failure, which is chronic and systolic. He appears to be euvolemic and furosemide is going to be continued at home dose. 4. For his hypertension, furosemide is going to be continued. 5. For his hypothyroidism, levothyroxine is going to be continued. 6. For DVT prophylaxis, the patient is going to be continued on his Xarelto, which he currently takes. 7. Chronic kidney disease, stage 3. His creatinine is slightly higher than the patient's baseline, which usually appears to be at 1.2. We will monitor this closely. 8. The patient's code status is full. His surrogate is his . TIME SPENT: Approximately 65 minutes were spent on the admission of this patient, more than half that time was spent [id number] with the patient during the interview and physical exam. [id number]/[facility] #: [id number] MTDD
[2019-04-09 00:21] LABS: Troponin I 0.07 ng/mL (<0.03)
[2019-04-09] MEDS ORDERED: Levothyroxine TAB* 100 MCG TAB PO SCH (06:00)
[2019-04-09 06:44] LABS: ABS Basophils 0.1 10^3/ul (0-0.2); ABS Eosinophils 0.3 10^3/ul (0-0.6); ABS Lymphocytes 1.1 10^3/ul (1.0-4.8); ABS Monocytes 0.7 10^3/ul (0-0.8); ABS Neutrophils 4.3 10^3/ul (1.5-7.7); Eosinophil % 4.4 %; Hematocrit 33 % (42-52); Hemoglobin 10.9 g/dL (14.0-18.0); Lymphocyte % 16.7 %; Mean Corpuscular HGB Conc 33 g/dL (31-36); Mean Corpuscular Hemoglobin 28 pg (27-31); Mean Corpuscular Volume 85 fL (80-94); Nucleated Red Blood Cells % 0.1; Platelet Count 333 10^3/uL (150-450); Red Blood Count 3.91 10^6 /uL (4.18-5.48); Red Cell Distribution Width 18 % (10-15); White Blood Count 6.4 10^3/uL (3.5-10.8)
[2019-04-09 06:53] LABS: BUN/Creatinine Ratio 18.9 (8-20); Calcium 8.7 mg/dL (8.6-10.3); EGFR African American 64.9 (>60); EGFR Non-African American 53.6 (>60); Potassium 3.7 mmol/L (3.5-5.0)
[2019-04-09] MEDS ORDERED: Flumazenil* 0.1 MG/ML 5 ML MDV ONE (08:23)
[2019-04-09] MEDS ORDERED: Midazolam* 1 MG/ML 5 ML VIAL (5 MG) ONE (08:23)
[2019-04-09] MEDS ORDERED: fentaNYL* 50 MCG/ML 2 ML VIAL (100 MCG VIAL) ONE (08:23)
[2019-04-09] MEDS ORDERED: Naloxone* 0.4 MG/ML 1 ML VIAL ONE (08:23)
[2019-04-09] MEDS ORDERED: Metoprolol Succinate XL TAB* 50 MG PO SCH (09:00)
[2019-04-09] MEDS ORDERED: Potassium Chlor TAB* 20 MEQ TAB.ER PO SCH (09:00)
[2019-04-09] MEDS ORDERED: amLODIPine TAB* 5 MG PO SCH (09:00)
[2019-04-09] MEDS ORDERED: Amiodarone TAB* 200 MG PO SCH (09:00)
[2019-04-09] MEDS ORDERED: Clopidogrel TAB* 75 MG PO SCH (09:00)
[2019-04-09] MEDS ORDERED: Folic Acid TAB* 1 MG PO SCH (09:00)
[2019-04-09] MEDS ORDERED: Aspirin EC TAB* 81 MG TAB.EC PO SCH (09:00)
[2019-04-09] MEDS ORDERED: Furosemide TAB* 40 MG PO SCH (09:00)
--- NOTE | 2019-04-09 11:40 | CARD ---
CC: Hospitalist Service; Dr. Gamboa; Dr. Valente DIRECT CURRENT CARDIOVERSION NOTE: DATE OF PROCEDURE: 04/09/19 PROCEDURE: Direct current cardioversion. INDICATIONS: The patient is a 68-year-old male patient with known history of paroxysmal atrial flutt er/fibrillation, ischemic cardiomyopathy, coronary artery disease, CABG. History of multiple cardiov ersions in the past. History of symptomatic atrial flutter/fibrillation, which he cannot tolerate. Last cardioversion was in February 2019. The patient was hospitalized for atrial flutter/fibrillatio n and angina. He has been maintained on Xarelto on a daily basis. Last dose was last night. Cardio version was further recommended. The patient is in paced ventricular rhythm with heart rate 70 beats per minute. DESCRIPTION OF PROCEDURE: After informed written consent had been obtained and with continuous blood pressure, pulse oximetry, and heart rate monitoring, the patient received a total dose of Versed 8 m g intravenously and 50 mcg of fentanyl intravenously. Synchronized 200 Joules were delivered twice a nd they were unsuccessful to convert the patient to normal sinus rhythm. ICD interrogation after the cardioversion confirmed the patient still in slow atrial fibrillation. There were no complications a nd the patient tolerated the procedure well. CONCLUSION: Unsuccessful direct current cardioversion for atrial fibrillation. [id number]/[facility] #: [id number]
[2019-04-09 12:21] VITALS: BP 123/62
--- NOTE | 2019-04-10 05:24 | DS ---
CC: Dr. Barlow; Dr. Gamboa; Dr. Bejarano; Dr. Valente; Dr. Berg * DISCHARGE SUMMARY: DATE OF ADMISSION: 04/08/19 DATE OF DISCHARGE: 04/09/19 PRIMARY CARE PROVIDER: Dr. Berg. DISCHARGE DIAGNOSIS: Atrial fibrillation, status post attempted cardioversion that was unsuccessful. SECONDARY DIAGNOSES: As per history and physical dictated the day prior. MEDICATIONS AT DISCHARGE: Unchanged from admission and include: 1. Amiodarone 300 mg daily. 2. Amlodipine 5 mg daily. 3. Aspirin 81 mg daily. 4. Plavix 75 mg daily. 5. Colace 100 mg q.a.m. 6. Folvite 1 mg daily. 7. Lasix 40 mg daily. 8. Synthroid 200 mcg daily. 9. Metoprolol succinate 50 mg daily. 10. Potassium chloride 20 mEq daily. 11. Pravachol 80 mg at bedtime. 12. Zantac 150 mg q.a.m. 13. Xarelto 20 mg at bedtime. LABORATORY DATA AND STUDIES PERFORMED DURING HOSPITAL STAY: Included on white blood cell count of 6.4, hemoglobin of 10.9, hematocrit of 33, and platelets of 333. Sodium 139, potassium 3.7, chloride 106, carbon dioxide 24, BUN 25, creatinine 1.32. Troponin of 0.07 and another troponin was also 0.07. CONSULTATION DURING THE HOSPITAL STAY: Included Dr. Valente from Cardiology, who performed DC cardioversion on the patient on 04/09/19 that was unsuccessful. DISPOSITION AT DISCHARGE: Home. CONDITION AT DISCHARGE: Stable. PHYSICAL EXAMINATION AT DISCHARGE: Blood pressure of 115/62, heart rate of 70 and regular, respiratory rate 20, oxygen saturation 98% on room air, temperature 97.3. General: The patient is a very pleasant 68-year-old male who is not in acute distress. The patient is alert and oriented x3. HEENT: Head atraumatic and normocephalic. Eyes: Pupils are equal and reactive to light and accommodation. Oropharynx clear, mucosa moist. Neck: Supple. No JVD. No bruit bilaterally. Cardiovascular: Regular rate and rhythm. No murmur. Respiratory: Clear to auscultation bilaterally. Abdomen: Soft and nontender. Bowel sounds are present in all 4 quadrants. Extremities: There is minimal to trace bilateral pedal edema. Pulses are +2 bilaterally. There is no clubbing or cyanosis. Neuro Evaluation: Speech is clear. Cranial nerves II through XII intact grossly intact. Motor strength is 5/5 bilaterally. HOSPITALIZATION COURSE: Ron Armstrong is a 68-year-old male with history of ischemic cardiomyopathy, who has ICD and pacemaker placement and newly pacer dependent but has intermittent atrial fibrillation from which he was cardioverted in February of 2019. The patient has history of frequent cardioversions and 2 AFib ablations in the past. The patient stated that whenever he is in atrial fibrillation he feels "angina symptoms," which he describes as occasional pain in his right arm. He has had occasional pain in his right arm for 3 days until he called his stand up forklift operator's office, Dr. Gamboa. Although Dr. Gamboa was not available, Dr. Barlow reviewed the patient's records and noted that the patient is in atrial fibrillation in fact after quick interrogation of the patient's pacemaker as outpatient. The patient presented to the ED for further evaluation. He was placed on overnight observation. His troponin continued to be 0.07. He did have an episode of right arm pain prior to admission. Dr. Valente on 04/09/19 attempted cardioversion twice but that was unsuccessful. The patient remains to have an A -paced rhythm with heart rate in the 70s but the underlying rhythm as per Dr. Valente is still atrial fibrillation. Currently, the patient is chest pain free and he requested to go home. He is planning to follow up with Dr. Gamboa, which he is recommended to do within the next 4 to 7 days for further recommendations. At this point, there are no further medication changes. The patient is also recommended to follow up with primary care provider in another 4 to 7 days. Please note that this is a short summary of the patient's hospital stay. Please refer to further medical records for details. TIME SPENT: Approximately 40 minutes was spent on this patient's discharge. [id number]/[facility] [place] #: [id number] MTDD
== END 2019-04-09 12:50 | disposition home or self-care (01) ==
LOC: ED 16:50 → MEDTELE 18:40
PROVIDERS: ADMIT Internal Medicine; ATTEND Internal Medicine
DX: I48.91 Unspecified atrial fibrillation (principal); Z95.5 Presence of coronary angioplasty implant and graft; Z95.810 Presence of automatic (implantable) cardiac defibrillator; I11.0 Hypertensive heart disease with heart failure; I50.22 Chronic systolic (congestive) heart failure; E66.9 Obesity, unspecified; E03.9 Hypothyroidism, unspecified; Z79.82 Long term (current) use of aspirin; Z79.899 Other long term (current) drug therapy; Z79.01 Long term (current) use of anticoagulants; I25.2 Old myocardial infarction; E78.00 Pure hypercholesterolemia, unspecified; F17.210 Nicotine dependence, cigarettes, uncomplicated; R07.9 Chest pain, unspecified
CPT/HCPCS: 36415; 71046; 80048; 80053; 83735; 84484; 85025; 92960; 93005; 99156; 99284; A9270-GY; G0378; J2250; J2310; J3010

== ENCOUNTER 2022-02-25 12:02 | Observation (INO) ==
[2022-02-25 13:21] LABS: ABS Basophils 0.1 10^3/ul (0-0.2); ABS Lymphocytes 0.8 10^3/ul (1.0-4.8); ABS Monocytes 0.7 10^3/ul (0-0.8); ABS Neutrophils 5.8 10^3/ul (1.5-7.7); Eosinophil % 0.5 %; Hematocrit 41 % (42-52); Hemoglobin 13.6 g/dL (14.0-18.0); Mean Corpuscular HGB Conc 33 g/dL (31-36); Mean Corpuscular Hemoglobin 30 pg (27-31); Mean Corpuscular Volume 92 fL (80-94); Mean Platelet Volume 7.1 fL (7.4-10.4); Platelet Count 477 10^3/uL (150-450); Red Cell Distribution Width 20 % (10-15); White Blood Count 7.4 10^3/uL (3.5-10.8)
[2022-02-25 13:28] LABS: INR 1.71 (0.89-1.11)
[2022-02-25 14:15] LABS: Albumin 4.1 g/dL (3.2-5.2); Albumin/Globulin Ratio 1.2 (1-3); Calcium 9.3 mg/dL (8.6-10.3); Creatinine, Serum 1.32 mg/dL (0.67-1.17); Globulin 3.5 g/dL (2-4); Potassium 4.4 mmol/L (3.5-5.0); Total Bilirubin 1.4 mg/dL (0.2-1.0); Total Protein 7.6 g/dL (6.4-8.9)
[2022-02-25 15:04] LABS: High Sensitivity Troponin 1 Hr 37 pg/mL (<20)
[2022-02-25 18:52] LABS: Body Fluid Appearance Bloody; Body Fluid Color Red; Body Fluid Source Pleural Fluid
[2022-02-25 18:59] LABS: Body Fluid WBC 4761 /mcL
[2022-02-25 19:50] LABS: Body Fluid Mono 2 %; Body Fluid Other Cells 4; Body Fluid Total Cells Counted 200
[2022-02-25 20:43] LABS: Hepatitis B Surface Antigen Nonreactive (Nonreactive)
[2022-02-25 20:48] LABS: Hepatitis A Ab IgM Negative (Negative)
[2022-02-25 20:49] LABS: Hepatitis B Core IgM Nonreactive (Nonreactive)
[2022-02-25 21:01] LABS: Hepatitis C Antibody Negative (Negative)
[2022-02-26 05:51] LABS: ABS Basophils 0.1 10^3/ul (0-0.2); ABS Eosinophils 0.1 10^3/ul (0-0.6); ABS Lymphocytes 0.8 10^3/ul (1.0-4.8); ABS Monocytes 0.6 10^3/ul (0-0.8); ABS Neutrophils 4.1 10^3/ul (1.5-7.7); Eosinophil % 1.3 %; Hematocrit 27 % (42-52); Hemoglobin 9.1 g/dL (14.0-18.0); Lymphocyte % 13.5 %; Mean Corpuscular HGB Conc 34 g/dL (31-36); Mean Corpuscular Hemoglobin 30 pg (27-31); Mean Corpuscular Volume 91 fL (80-94); Mean Platelet Volume 6.9 fL (7.4-10.4); Platelet Count 298 10^3/uL (150-450); Red Blood Count 2.98 10^6 /uL (4.18-5.48); Red Cell Distribution Width 19 % (10-15); White Blood Count 5.6 10^3/uL (3.5-10.8)
[2022-02-26 06:47] LABS: Albumin 3.2 g/dL (3.2-5.2); Albumin/Globulin Ratio 1.1 (1-3); Calcium 8.3 mg/dL (8.6-10.3); Creatinine, Serum 1.31 mg/dL (0.67-1.17); Globulin 2.8 g/dL (2-4); Magnesium 1.9 mg/dL (1.9-2.7); Potassium 3.7 mmol/L (3.5-5.0); Total Bilirubin 1.3 mg/dL (0.2-1.0); eGFR CKD-EPI 57.5 (>60)
[2022-02-26] MEDS ORDERED: Potassium Chlor 20 meq TAB.ER PO ONE (07:57)
[2022-02-26] MEDS ORDERED: Potassium Chlor 20 meq TAB.ER PO SCH (09:00)
[2022-02-26] MEDS ORDERED: Aspirin EC 81 mg TAB.EC (enteric coated) PO SCH (09:00)
[2022-02-26 12:13] LABS: Hematocrit 40 % (42-52); Hemoglobin 13.2 g/dL (14.0-18.0); Mean Corpuscular HGB Conc 33 g/dL (31-36); Mean Corpuscular Hemoglobin 30 pg (27-31); Mean Corpuscular Volume 91 fL (80-94); Platelet Count 454 10^3/uL (150-450); Red Blood Count 4.39 10^6 /uL (4.18-5.48); Red Cell Distribution Width 19 % (10-15); White Blood Count 8.6 10^3/uL (3.5-10.8)
[2022-02-26 15:58] VITALS: BP 98/61
[2022-02-28 10:33] LABS: Fluid Type: PLEURAL; Triglycerides (BF) 34 mg/dL
[2022-02-28 11:10] LABS: Lactate Dehydrogenase, BF 372 U/L
[2022-02-28 11:37] LABS: Fluid Type, Amylase PLEURAL; Glucose, BF 96 mg/dL
[2022-02-28 11:39] LABS: Fluid Type, Protein, Total PLEURAL
[2022-03-15 16:43] LABS: Case Number CR-22-68830
== END 2022-02-26 17:25 | disposition home or self-care (01) ==
LOC: SUATTDRO → EDHOLD 12:02 → ED 12:02 → EDHOLD 02-26 08:31 → MEDTELE 02-26 09:05
PROVIDERS: ADMIT Internal Medicine; ATTEND Internal Medicine

== ENCOUNTER 2024-04-14 13:08 | Observation (INO) ==
[2024-04-14 13:54] LABS: ABS Basophils 0.1 10^3/uL (0.0-0.1); ABS Eosinophils 0.2 10^3/uL (0.0-0.5); ABS Lymphocytes 1.1 10^3/uL (1.0-4.8); ABS Monocytes 0.6 10^3/uL (0.0-1.1); ABS Neutrophils 4.3 10^3/uL (1.5-7.6); ABS Nucleated RBC 0.01 10^3/ul; Eosinophil % 3.4 %; Hematocrit 41.6 % (38-53); Hemoglobin 13.9 g/dL (13.2-16.3); Lymphocyte % 17.2 %; Mean Corpuscular Hemoglobin 33.1 pg (27-33); Mean Corpuscular Hgb Conc 33.4 g/dL (31-36); Mean Platelet Volume 8.1 fL (7.5-11.2); Nucleated Red Blood Cells % 0.1 %/100WBC (0.0-0.8); Platelet Count 266 10^3/uL (150-450); Red Cell Distribution Width 19.8 % (12-17); White Blood Count 6.4 10^3/uL (3.6-10.2)
[2024-04-14 14:00] LABS: INR 2.37 (0.85-1.14)
[2024-04-14 14:18] LABS: High Sens Troponin Baseline 101 pg/mL (<20)
[2024-04-14 14:44] LABS: ALT 10 U/L (7-52); Alkaline Phosphatase 145 U/L (35-149); Anion Gap 7 mmol/L (2-16); Blood Urea Nitrogen 27 mg/dL (6-24); CO2 Carbon Dioxide 28 mmol/L (22-32); Calcium 9.2 mg/dL (8.6-10.3); Chloride 100 mmol/L (101-111); Creatinine, Serum 1.32 mg/dL (0.67-1.17); Globulin 3.9 g/dL (2-4); Glucose 79 mg/dL (70-100); Sodium 135 mmol/L (135-145); Total Bilirubin 1.7 mg/dL (0.2-1.0); Total Protein 7.9 g/dL (6.4-8.9); eGFR CKD-EPI 56.2 (>60)
[2024-04-14 15:32] LABS: Urine Appearance Clear; Urine Bilirubin Negative (Negative); Urine Blood Negative (Negative); Urine Color Light-Yellow; Urine Glucose Negative (Negative); Urine Ketones Negative (Negative); Urine Nitrite Negative (Negative); Urine Protein Trace (Negative); Urine Urobilinogen Negative (Negative); Urine pH 6.5 (5.0-8.0)
[2024-04-14] MEDS: Furosemide 40 mg/4 ml IV VIAL IV SLOW PU ONE (16:03)
[2024-04-14 16:11] LABS: Potassium Redraw 3.8 mmol/L (3.5-5.0)
[2024-04-14] MEDS ORDERED: Sulfur Hexaflouride MICROSPHR 25 MG VIAL IV PRN (17:20)
[2024-04-14] MEDS ORDERED: Senna TAB 8.6 mg TAB PO PRN (17:54)
[2024-04-14] MEDS ORDERED: NON FORMULARY MED (Hydromorphone 1 mg/mL liquid) PO PRN (17:54)
[2024-04-14] MEDS ORDERED: Morphine 2 MG/ML SYRINGE IV PRN (19:02)
[2024-04-15 01:13] LABS: High Sensitivity Troponin 1 Hr 221 pg/mL (<20)
[2024-04-15 06:22] LABS: Calcium 9.2 mg/dL (8.6-10.3); Creatinine, Serum 1.41 mg/dL (0.67-1.17); HDL Cholesterol 33.9 mg/dL; Potassium 3.6 mmol/L (3.5-5.0)
[2024-04-15 06:38] LABS: TSH Ultra Thyroid Stim Horm 5.72 mcIU/mL (0.34-5.60)
[2024-04-15] MEDS: Nitroglycerin 0.4 mg/hr PATCH (10 mg) TRANSDERM SCH (08:21)
[2024-04-15] MEDS: Aspirin EC 81 mg TAB.EC (enteric coated) PO SCH (08:22)
[2024-04-15] MEDS: Potassium Chlor 20 meq TAB.ER PO SCH (08:22)
[2024-04-15] MEDS: Furosemide 20 mg/2 ml IV VIAL IV SLOW PU ONE (15:36)
[2024-04-15] MEDS: Morphine 2 MG/ML SYRINGE IV ONE (23:46)
[2024-04-16 09:31] LABS: Anion Gap 11 mmol/L (2-16); Blood Urea Nitrogen 25 mg/dL (6-24); CO2 Carbon Dioxide 26 mmol/L (22-32); Chloride 101 mmol/L (101-111); Creatinine, Serum 1.37 mg/dL (0.67-1.17); Glucose 82 mg/dL (70-100); Sodium 138 mmol/L (135-145); eGFR CKD-EPI 53.8 (>60)
[2024-04-16 10:58] LABS: Potassium Redraw 3.5 mmol/L (3.5-5.0)
[2024-04-16 16:03] VITALS: BP 91/61
== END 2024-04-16 16:00 | disposition home or self-care (01) ==
LOC: ED 13:08 → INTOOBSV 17:17 → EDHOLD 17:17 → SUATTDRO 17:17 → MED 19:42
PROVIDERS: ADMIT Internal Medicine; ATTEND Student in an Organized Health Care Education/Training Program

== ENCOUNTER 2024-05-08 11:24 | Inpatient (IN) ==
[2024-05-08 12:45] LABS: ABS Basophils 0.1 10^3/uL (0.0-0.1); ABS Eosinophils 0.2 10^3/uL (0.0-0.5); ABS Lymphocytes 0.9 10^3/uL (1.0-4.8); ABS Monocytes 0.6 10^3/uL (0.0-1.1); ABS Neutrophils 3.5 10^3/uL (1.5-7.6); Eosinophil % 3.5 %; Hematocrit 37.8 % (38-53); Hemoglobin 12.8 g/dL (13.2-16.3); INR 2.51 (0.85-1.14); Lymphocyte % 16.9 %; Mean Corpuscular Hemoglobin 33.1 pg (27-33); Mean Corpuscular Hgb Conc 33.9 g/dL (31-36); Mean Corpuscular Volume 97.5 fL (80-97); Mean Platelet Volume 8.1 fL (7.5-11.2); Platelet Count 247 10^3/uL (150-450); Red Blood Count 3.87 10^6/uL (4.06-5.63); Red Cell Distribution Width 18.6 % (12-17); White Blood Count 5.2 10^3/uL (3.6-10.2)
[2024-05-08 13:19] LABS: Albumin 3.7 g/dL (3.5-5.7); Albumin/Globulin Ratio 1.1 (1-3); C Reactive Protein 12.69 mg/L (<8.01); Calcium 8.9 mg/dL (8.6-10.3); Creatinine, Serum 1.45 mg/dL (0.67-1.17); Globulin 3.3 g/dL (2-4); Potassium 3.6 mmol/L (3.5-5.0); Total Bilirubin 1.4 mg/dL (0.2-1.0); eGFR CKD-EPI 50.3 (>60)
[2024-05-08 14:08] LABS: High Sensitivity Troponin 1 Hr 116 pg/mL (<20)
[2024-05-08] MEDS: Nitro 2% OINT (Nitroglycerin) 1 INCH/PAK TOPICAL ONE (15:25)
[2024-05-08] MEDS ORDERED: Senna TAB 8.6 mg TAB PO PRN (17:12)
[2024-05-08] MEDS ORDERED: Polyethylene Glycol 3350 17 GM PACKET PO PRN (17:23)
[2024-05-08] MEDS: Furosemide 40 mg/4 ml IV VIAL IV SLOW PU ONE (17:57)
[2024-05-08 18:15] LABS: Ferritin 17.2 ng/mL (24-336)
[2024-05-08] MEDS: RAMELTEON 8 MG PO SCH (21:44)
[2024-05-09 06:04] LABS: ABS Basophils 0.1 10^3/uL (0.0-0.1); ABS Eosinophils 0.2 10^3/uL (0.0-0.5); ABS Lymphocytes 1.1 10^3/uL (1.0-4.8); ABS Monocytes 0.5 10^3/uL (0.0-1.1); ABS Neutrophils 3.6 10^3/uL (1.5-7.6); Eosinophil % 3.4 %; Hematocrit 36.2 % (38-53); Hemoglobin 12.3 g/dL (13.2-16.3); Lymphocyte % 20.3 %; Mean Corpuscular Hemoglobin 32.9 pg (27-33); Mean Corpuscular Hgb Conc 33.9 g/dL (31-36); Mean Corpuscular Volume 97.1 fL (80-97); Platelet Count 234 10^3/uL (150-450); Red Blood Count 3.73 10^6/uL (4.06-5.63); Red Cell Distribution Width 19.1 % (12-17); White Blood Count 5.5 10^3/uL (3.6-10.2)
[2024-05-09 06:20] LABS: Albumin 3.3 g/dL (3.5-5.7); Albumin/Globulin Ratio 0.9 (1-3); Calcium 8.9 mg/dL (8.6-10.3); Creatinine, Serum 1.4 mg/dL (0.67-1.17); Globulin 3.5 g/dL (2-4); Magnesium 1.9 mg/dL (1.9-2.7); Potassium 3.5 mmol/L (3.5-5.0); Total Bilirubin 1.7 mg/dL (0.2-1.0); Total Protein 6.8 g/dL (6.4-8.9); eGFR CKD-EPI 52.4 (>60)
[2024-05-09] MEDS: Aspirin EC 81 mg TAB.EC (enteric coated) PO SCH (09:14)
[2024-05-09] MEDS: Potassium Chloride LIQUID 20 MEQ/15 ML LIQUID PO ONE (09:15)
[2024-05-09] MEDS: Nitroglycerin 0.4 mg/hr PATCH (10 mg) TRANSDERM SCH (09:16)
[2024-05-09] MEDS: Sulfur Hexaflouride MICROSPHR 25 MG VIAL IV PRN (09:35)
[2024-05-09] MEDS: Ondansetron 4 mg VIAL 2 MG/ML 2 ml VIAL IV PRN (18:31)
[2024-05-10 05:51] LABS: ABS Basophils 0.1 10^3/uL (0.0-0.1); ABS Eosinophils 0.2 10^3/uL (0.0-0.5); ABS Lymphocytes 1.2 10^3/uL (1.0-4.8); ABS Monocytes 0.6 10^3/uL (0.0-1.1); ABS Neutrophils 3.5 10^3/uL (1.5-7.6); ABS Nucleated RBC 0.01 10^3/ul; Eosinophil % 3.7 %; Hematocrit 35.6 % (38-53); Hemoglobin 12.1 g/dL (13.2-16.3); Mean Corpuscular Hemoglobin 33.1 pg (27-33); Mean Corpuscular Hgb Conc 33.9 g/dL (31-36); Mean Corpuscular Volume 97.4 fL (80-97); Mean Platelet Volume 8.1 fL (7.5-11.2); Nucleated Red Blood Cells % 0.2 %/100WBC (0.0-0.8); Platelet Count 222 10^3/uL (150-450); Red Blood Count 3.66 10^6/uL (4.06-5.63); Red Cell Distribution Width 18.8 % (12-17); White Blood Count 5.5 10^3/uL (3.6-10.2)
[2024-05-10 06:59] LABS: Albumin 3.5 g/dL (3.5-5.7); Albumin/Globulin Ratio 1.1 (1-3); Calcium 9.1 mg/dL (8.6-10.3); Creatinine, Serum 1.53 mg/dL (0.67-1.17); Globulin 3.2 g/dL (2-4); Total Bilirubin 1.5 mg/dL (0.2-1.0); Total Protein 6.7 g/dL (6.4-8.9); eGFR CKD-EPI 47.1 (>60)
[2024-05-10 09:58] VITALS: BP 82/46
== END 2024-05-10 13:30 | disposition home or self-care (01) | DRG 291 ==
LOC: EDHOLD 11:24 → ED 11:24 → MED 18:34
PROVIDERS: ADMIT Hospitalist; ATTEND Hospitalist